=== PATIENT | male | born 1940 | race African-American/Black ===

== ENCOUNTER 2021-02-12 08:27 | Emergency (ER) | payer OTHER, MEDICAID ==
[~2021-02-12] VITALS: Ht 180.3 cm; Wt 87.0 kg
[2021-02-12 08:35] VITALS: BP 172/78
--- NOTE | 2021-02-12 08:56 | PHYS DOC ---
Past Medical History Past Medical History htn Past Surgical History: No Surgical History Alcohol Use: None Drug Use: None General Adult EDM: Chief Complaint: LACERATION/AVULSION HPI: HPI: This is a pleasant 80-year-old male who presents emergency department today with a left middle finger/third phalanx injury which occurred at 1:00 PM yesterday on 02-11-2021 when he was mowing the lawn. he reports he fell and his finger got caught by the blade. He put gauze over it and was able to maintain hemostasis with pressure bandaged it. He presents today on 02-12-2021 at around 8:30 AM. Currently he has no pain. When he injured it his pain was throbbing aching nonradiating mild and without alleviating factors. He denies any other injuries or symptoms. Tetanus is not up-to-date. Review of systems negative for chest pain shortness of breath vomiting fevers chills or injury to any other extremities. He denies head injury loss of consciousness or syncope. All other review of systems negative ED course: 80-year-old male presents emergency department today after a finger laceration and a lawnmower accident. X-ray unremarkable. Tetanus updated. Wound is concerning for high risk for infection. Wound is about 18 hours old. I do not feel comfortable reapproximating this wound given the risk of infection. We washed the wound out with 200 cc of saline under pressure along with soaking it and then using Betadine to clean the wound. We placed nonadherent dressing overlying the wound and bandaged the wound. I gave the patient oral doxycycline to try to prevent infection. I also refer the patient to plastic surgery for consultation on whether they would be able to reapproximate the wound within the next 24 to 48 hours. The patient was then discharged home to follow-up with plastic surgery over the next day or 2. If unable to get into specialty consultation he is supposed to return to the emergency department for further treatment and care. Preferably an the emergency department that has plastic surgery on-call. Heart Score: C/O Chest Pain: No Risk Factors: Risk Factors: DM, Current or recent (<one month) smoker, HTN, HLP, family history of CAD, obesity. Risk Scores: Score 0 - 3: 2.5% MACE over next 6 weeks - Discharge Home Score 4 - 6: 20.3% MACE over next 6 weeks - Admit for Clinical Observation Score 7 - 10: 72.7% MACE over next 6 weeks - Early Invasive Strategies Allergies: Allergies: Allergies Coded Allergies Type Severity Reaction Last Updated Verified Penicillins Allergy Unknown 02/12/21 Yes Physical Exam: PE: Constitutional: Well developed, well nourished, no acute distress, non-toxic appearance. [] HENT: Normocephalic, atraumatic, bilateral external ears normal, oropharynx moist, no oral exudates, nose normal. [] Eyes: PERRLA, EOMI, conjunctiva normal, no discharge. [] Neck: Normal range of motion, no tenderness, supple, no stridor. [] Cardiovascular:Heart rate regular rhythm, no murmur [] Lungs & Thorax: Bilateral breath sounds clear to auscultation [] Abdomen: Bowel sounds normal, soft, no tenderness, no masses, no pulsatile masses. [] Skin: Warm, dry, no erythema, no rash. [] Back: No tenderness, no CVA tenderness. [] Extremities: The patient's left hand has a laceration to the tip of the third phalanx/middle finger which has contaminated debris throughout. There are no large obvious foreign bodies visible. Neurovascularly intact with 2-second cap refill. Normal range of motion of the joint proximally in the DIP and PIP. Normal extension and flexion of the finger. The remainder the hand is nontender without any evidence of trauma. Palpable pulse. Nontender wrist and elbow proximally. The remainder the extremities are nontender with normal range of motion of the joints neurovascular intact and atraumatic. Neurologic: Alert and oriented X 3, normal motor function, normal sensory function, no focal deficits noted. [] Psychologic: Affect normal, judgement normal, mood normal. [] EKG: EKG: [] Radiology/Procedures: Radiology/Procedures: [] Course & Med Decision Making: Course & Med Decision Making Pertinent Labs and Imaging studies reviewed. (See chart for details) [] Dragon Disclaimer: Dragon Disclaimer: This electronic medical record was generated, in whole or in part, using a voice recognition dictation system. Departure Departure Impression: Primary Impression: Finger laceration Disposition: 01 HOME / SELF CARE / HOMELESS Condition: STABLE Referrals: SHABBIR WEBSTER MD (PCP) Patient Instructions: Laceration, Old, Not Sutured Additional Instructions: Because your wound is at high risk of infection, I am referring you to a hand specialist. Follow up is extremely important and lack of follow up could lead to loss of hand, disability, and/or . Follow up with Hand surgery by making an appointment by calling [phone]. You need to be seen within 24-48 hours. If you cannot get in, return to a local emergency room for reevaluation and further guidance. Scripts Doxycycline Hyclate (DOXYCYCLINE HYCLATE) 100 Mg Capsule 1 CAP PO BID for 10 Days, #20 CAP 0 Refills Prov: MARJAN SETHI MD 02/12/21 MARJAN SETHI MD February 12, 2021 08:56
[2021-02-12] MEDS ORDERED: DIPH,PERTUSS(ACELL),TET VAC/PF 0.5 ML SYRINGE. VAX IM ONE (09:00)
[2021-02-12] MEDS ORDERED: DOXY100C2 PO (09:01)
[2021-02-12] MEDS ORDERED: DOXYCYCLINE HYCLATE 100 MG TABLET PO ONE (09:15)
--- NOTE | 2021-02-12 09:39 | RAD ---
Left third finger 3 views. HISTORY: Finger injury, trauma 3 views were taken the left third finger. There is soft tissue injury at the tip of the third finger. There is no underlying fracture or osseous abnormality. No other acute osseous abnormality is noted in the left hand. IMPRESSION: 1. Soft tissue injury distal left third finger. 2. No acute fracture. Electronically signed by: Bernardo Appiah MD (02/12/2021 9:36 AM) [id number]
== END 2021-02-12 10:45 | disposition home or self-care (01) ==
LOC: ER 08:27
DX: S61.213A Laceration without foreign body of left middle finger without damage to nail, initial encounter (principal); I10 Essential (primary) hypertension; Z88.0 Allergy status to penicillin; W18.09XA Striking against other object with subsequent fall, initial encounter; Y93.89 Activity, other specified; Y92.89 Other specified places as the place of occurrence of the external cause; Y99.8 Other external cause status
CPT/HCPCS: 73140; 90471; 90715; 99283

== ENCOUNTER 2021-12-18 12:32 | Inpatient (IN) | payer OTHER, MEDICAID ==
[~2021-12-18] VITALS: Ht 182.9 cm; Wt 68.1 kg
[~2021-12-18 12:32] MED LIST: DOXY100C3 PO
--- NOTE | 2021-12-18 12:48 | PHYS DOC ---
Past Medical History Past Medical History: Diabetes-Type II, High Cholesterol, Hip Dislocation, [place] Past Surgical History: No Surgical History Additional Past Surgical Histo: CARDIAC STENTS Smoking Status: Never Smoker Alcohol Use: None Drug Use: None General Adult EDM: Chief Complaint: SEIZURE HPI: HPI: Patient is a 81 year old male brought in by EMS after he was found walking on a sidewalk somewhere, demonstrating seizure-like activity, a bystander called 911. He does not know if he was helped to the ground or if he fell and hit his head. The patient is confused on arrival, appears to be postictal. EMS does not report that they saw any seizure-like activity. The patient is unable to provide any meaningful history. He knows his name, he knows he is in the hospital, and he repeatedly states his date of when asked other questions. He cannot tell us where he lives. He does not have any identifying information on him that would tell us where he lives. He is wearing some sort of badge with a lanyard around his neck, though this is an unmarked badge. There were no accompanying people with him when he was found by the bystander who called 911. The patient denies any specific complaints of pain. Review of systems is limited secondary to postictal state, mental status. His previous records indicate that he was here in 2020 for a laceration. It is not known if he has a history of seizures or not. Review of Systems: Review of Systems: Review of systems is significantly limited secondary to clinical condition, see HPI. Heart Score: C/O Chest Pain: N/A Risk Factors: Risk Factors: DM, Current or recent (<one month) smoker, HTN, HLP, family history of CAD, obesity. Risk Scores: Score 0 - 3: 2.5% MACE over next 6 weeks - Discharge Home Score 4 - 6: 20.3% MACE over next 6 weeks - Admit for Clinical Observation Score 7 - 10: 72.7% MACE over next 6 weeks - Early Invasive Strategies Allergies: Allergies: Allergies Coded Allergies Type Severity Reaction Last Updated Verified Penicillins Allergy Unknown 02/12/21 Yes Physical Exam: PE: Constitutional: Well developed, no acute distress, non-toxic appearance. He is relatively frail appearing, moderately unkempt. Not acutely ill-appearing. HENT: Normocephalic, atraumatic, bilateral external ears normal, oropharynx moist, no oral exudates, nose normal. TMs are clear bilaterally. No facial trauma noted. No otorrhea, no epistaxis, no rhinorrhea. No dental trauma noted. Eyes: PERRL, EOMI, conjunctiva normal, no discharge. No periorbital edema, erythema or contusion. Neck: Normal range of motion, no tenderness, supple, no stridor. No midline tenderness or step-offs. Cardiovascular:Heart rate regular rhythm, 2 radial and +2 posterior tibial pulses bilaterally Lungs & Thorax: Lungs are clear to auscultation bilaterally without rales, rhonchi or wheezes. Abdomen: Abdomen is soft, nondistended, nontender to palpation. No palpable mass organomegaly. Skin: Warm, dry, no erythema, no rash. Tickly poor skin turgor. No open wounds, no contusions, no areas of swelling, warmth, no lacerations or abrasions. Back: No tenderness, no CVA tenderness. Somewhat limited range of motion. No midline tenderness or step-offs. No deformity. Extremities: No tenderness, no cyanosis, no clubbing, ROM intact, no edema. Pelvis is stable. No limb deformity. No calf tenderness. Neurologic: The patient is somewhat sleepy, though awake, he is oriented to person, "hospital" and knows his date of . He does not know the date, situation or circumstances surrounding why he is here or what occurred prior to arrival. He follows commands. Cranial nerves II through XII are grossly intact. Sensation is grossly intact. He demonstrates 5 out of 5 motor strength all 4 extremities. Speech is limited but what content there is, is fluent. Psychologic: Affect is pleasant, cooperative EKG: EKG: EKG is interpreted at 1253 Rhythm is sinus tachycardia Rate is 112 bpm [place] is left artifact No obvious STEMI Radiology/Procedures: Radiology/Procedures: IMAGING REPORT Signed PATIENT: FAREED MALONE ACCOUNT: [id number] : 1940 LOCATION: ER AGE: 81 SEX: M EXAM STATUS: REG ER ORD. PHYSICIAN: FOX BRAMBILA DO REASON: AMS, ?seizure PROCEDURE: CT HEAD WO CONTRAST Exam Date: 12/18/2021 1:[address] HEAD/BRAIN WO Indication: Reason: AMS, ?seizure / Spl. Instructions: / History: . TECHNIQUE: Head CT was performed without intravenous contrast. One or more of the following dose reduction techniques were utilized: *Automated exposure control (AEC) *Adjustment of mA and/or kV according to patient size *Use of iterative reconstruction technique *CT scan done according to ALARA, or ALARA/IMAGE GENTLY FINDINGS: The ventricles and sulci are prominent consistent with cerebral volume loss. Patchy ill-defined low attenuation areas in the subcortical and periventricular white matter bilaterally are consistent with microvascular disease. There is no evidence of acute intracranial hemorrhage, extra-axial collection, mass effect, midline shift, or acute territorial infarct. No lesion of the skull base or the calvarium is seen. The visualized paranasal sinuses, mastoid air cells and orbits are normal in appearance. IMPRESSION: No evidence for acute intracranial abnormality. Volume loss and microvascular disease. Electronically signed by: Becky Riggs MD (12/18/2021 2:08 PM) [id number] DICTATED and SIGNED BY: BECKY RIGGS MD DATE: 12/18/211406 IMAGING REPORT Signed PATIENT: FAREED MALONE ACCOUNT: [id number] : 1940 LOCATION: ER AGE: 81 SEX: M EXAM STATUS: REG ER ORD. PHYSICIAN: FOX BRAMBILA DO REASON: AMS PROCEDURE: PORTABLE CHEST 1V XR CHEST 1V INDICATION: AMS / Spl. Instructions: / History: . COMPARISON STUDY: None. FINDINGS: Lungs: Normal lung volume. Mild bilateral ill-defined opacities. Pleura: No pleural effusion or pneumothorax. Heart and Mediastinum: The cardiomediastinal silhouette is normal. The tortuous atherosclerotic aorta. IMPRESSION: Mild bilateral ill-defined opacities, which could represent infection or edema. Electronically signed by: Em Gibson MD (12/18/2021 2:14 PM) [id number] DICTATED and SIGNED BY: EM GIBSON MD DATE: 12/18/211406 Course & Med Decision Making: Course & Med Decision Making Pertinent Labs and Imaging studies reviewed. (See chart for details) The patient had a witnessed tonic-clonic, generalized seizure. The seizure lasted approximately 1 minute. He was given IV Ativan. He did sustain an expected postictal state. He was placed on supplemental oxygen. No desaturation was ever noted. He did start to awaken again after period of time, he is still pleasantly confused. He is sleepy but awakens, still unable to give us any more information about where he lives, what occurred prior to arrival, he is unable to articulate if he has any history of seizures. He is given a dose of IV Keppra. Lactate is markedly elevated, likely secondary to seizure activity. He is given empiric IV Zosyn for subtle chest x-ray findings, concern for possible aspiration during seizure activity. He has marked hyperglycemia, it is unknown if he is a known diabetic or not. I ordered 10 units of insulin. Further IV fluid bolus is also ordered. Blood cultures are ordered. Also it is unknown what his baseline renal function is, his creatinine is elevated. He is hemodynamically stable, resting comfortably, without complaint. He is going to require admission to the hospital. He is accepted for admission by Dr. Trejo. Augustus Disclaimer: Augustus Disclaimer: This electronic medical record was generated, in whole or in part, using a voice recognition dictation system. Departure Departure Impression: Primary Impression: Altered mental status Qualified Codes: R41.82 - Altered mental status, unspecified Additional Impressions: Seizure Lactic acidosis Renal failure Qualified Codes: N19 - Unspecified kidney failure Hyperglycemia Disposition: ADMITTED INPATIENT Admitting Physician: TAMELA (Dr. Trejo) Condition: GUARDED Referrals: SHABBIR WEBSTER MD (PCP) FOX BRAMBILA DO Dec 18, 2021 12:48
[2021-12-18 13:10] LABS: BASO # 0.1 x10^3/uL (0.0-0.2); BASO % 1 % (0-3); EOS % 0 % (0-3); HEMATOCRIT 38.2 % (39.0-53.0); HEMOGLOBIN 12.6 g/dL (13.0-17.5); LYMPH # 2.2 x10^3/uL (1.0-4.8); LYMPH % 36 % (24-48); MEAN CORPUSCULAR HEMOGLOBIN 30 pg (25-35); MEAN CORPUSCULAR HGB CONC 33 g/dL (31-37); MEAN CORPUSCULAR VOLUME 91 fL (79-100); MONO # 0.6 x10^3/uL (0.0-1.1); MONO % 11 % (0-9); NEUT # 3.1 x10^3/uL (1.8-7.7); NEUT % 52 % (31-73); PLATELET COUNT 140 x10^3/uL (140-400); RED BLOOD COUNT 4.19 x10^6/uL (4.30-5.70); RED CELL DISTRIBUTION WIDTH 12.3 % (11.5-14.5); WHITE BLOOD COUNT 5.9 x10^3/uL (4.0-11.0)
[2021-12-18 13:19] LABS: PROTHROMBIN TIME PATIENT 12.1 SEC (11.7-14.0)
[2021-12-18 13:28] LABS: CALCIUM 8.6 mg/dL (8.5-10.1); CREATININE 3.2 mg/dL (0.7-1.3); GFR 22.7; POTASSIUM 4.9 mmol/L (3.5-5.1)
[2021-12-18 13:31] LABS: ALBUMIN 3.1 g/dL (3.4-5.0); ALBUMIN/GLOBULIN RATIO 0.8 (1.0-1.7); MAGNESIUM 2.2 mg/dL (1.8-2.4); TOTAL BILIRUBIN 0.4 mg/dL (0.2-1.0); TOTAL PROTEIN 7.2 g/dL (6.4-8.2)
[2021-12-18] MEDS ORDERED: IV NORMAL SALINE 1000ML BAG 1,000 ML IV ONE ×2 (14:00→14:45)
--- NOTE | 2021-12-18 14:10 | RAD ---
Exam Date: 12/18/2021 1:[address] HEAD/BRAIN WO Indication: Reason: AMS, ?seizure / Spl. Instructions: / History: . TECHNIQUE: Head CT was performed without intravenous contrast. One or more of the following dose re duction techniques were utilized: *Automated exposure control (AEC) *Adjustment of mA and/or kV according to patient size *Use of iterative reconstruction technique *CT scan done according to ALARA, or ALARA/IMAGE GENTLY FINDINGS: The ventricles and sulci are prominent consistent with cerebral volume loss. Patchy ill-defined low attenuation areas in the subcortical and periventricular white matter bilaterally are consistent with microvascular disease. There is no evidence of acute intracranial hemorrhage, extra-axial collecti on, mass effect, midline shift, or acute territorial infarct. No lesion of the skull base or the calv arium is seen. The visualized paranasal sinuses, mastoid air cells and orbits are normal in appearanc e. IMPRESSION: No evidence for acute intracranial abnormality. Volume loss and microvascular disease. Electronically signed by: Jake Riggs MD (12/18/2021 2:08 PM) [id number]
--- NOTE | 2021-12-18 14:17 | RAD ---
XR CHEST 1V INDICATION: AMS / Spl. Instructions: / History: . COMPARISON STUDY: None. FINDINGS: Lungs: Normal lung volume. Mild bilateral ill-defined opacities. Pleura: No pleural effusion or pneumothorax. Heart and Mediastinum: The cardiomediastinal silhouette is normal. The tortuous atherosclerotic aorta . IMPRESSION: Mild bilateral ill-defined opacities, which could represent infection or edema. Electronically signed by: Dre Gibson MD (12/18/2021 2:14 PM) [id number]
[2021-12-18] MEDS ORDERED: levETIRAcetam 1,000mg PREMIX 100 ML IV ONE (15:00)
[2021-12-18] MEDS ORDERED: CEFEPIME HCL IV Push 2 GM VIAL. IVP ONE (15:15)
[2021-12-18] MEDS ORDERED: INSULIN LISPRO 300 UNITS/3 ML VIAL. SQ ONE (15:15)
[2021-12-18] MEDS ORDERED: hydrALAZINE 20 MG/ML VIAL. IVP PRN (15:45)
[2021-12-18 17:20] VITALS: BP 166/78
--- NOTE | 2021-12-18 17:22 | PDOC1 ---
History and Physical Date of Admission Date of Admission DATE: 12/18/21 TIME: 17:11 Identification/Chief Complaint Chief Complaint Seizure Source Source: Chart review History of Present Illness History of Present Illness Jules is a 81 male who reportedly had a seizure-like activity outside of the hospital, which is what brought him to the ER today. While in the ER he did have witnessed seizure activity, treated with IV Ativan. At current time patient is very postictal, and little is known of his past medical history as he had an inpatient stay at this hospital prior labs admission showed WBC 5.9, hemoglobin 12.6, hematocrit 38.2, glucose 835, lactic acid 7.3, BUN 43, creatinine 3.2. CT head on admission was negative for any acute process, chest x-ray showed mild bilateral ill-defined opacities, which could represent infection or edema. Patient's been admitted for further medical management. Past Medical History Past Medical History Unknown at this time Past Surgical History Past Surgical History Unknown Family History Family History Unable to obtain patient's current condition Social History Smoke: No ALCOHOL: none Drugs: None Current Medications Current Medications Current Medications Lorazepam (Ativan Inj) 2 mg STK-MED ONCE .ROUTE ; Start 12/18/21 at 13:45; Stop 12/18/21 at 13:45; Status DC Sodium Chloride 1,000 ml @ 1,000 mls/hr 1X ONCE IV Last administered on 12/18/21at 14:00; Start 12/18/21 at 14:00; Stop 12/18/21 at 14:59; Status DC Lorazepam (Ativan Inj) 1 mg 1X ONCE IVP Last administered on 12/18/21at 13:46; Start 12/18/21 at 14:15; Stop 12/18/21 at 14:16; Status DC Sodium Chloride 1,000 ml @ 1,000 mls/hr 1X ONCE IV Last administered on 12/18/21at 14:34; Start 12/18/21 at 14:45; Stop 12/18/21 at 15:44; Status DC Levetiracetam 100 ml @ 400 mls/hr 1X ONCE IV Last administered on 12/18/21at 15:29; Start 12/18/21 at 15:00; Stop 12/18/21 at 15:14; Status DC Insulin Human Lispro (HumaLOG) 10 units 1X ONCE SQ ; Start 12/18/21 at 15:15; Stop 12/18/21 at 16:13; Status DC Cefepime HCl (Maxipime) 2 gm 1X ONCE IVP Last administered on 12/18/21at 16:10; Start 12/18/21 at 15:15; Stop 12/18/21 at 15:21; Status DC Hydralazine HCl (Apresoline Inj) 10 mg PRN Q4HRS PRN IVP HYPERTENSION; Start 12/18/21 at 15:45 Active Scripts Active Doxycycline Hyclate 100 Mg Capsule 1 Cap PO BID 10 Days Allergies Allergies: Coded Allergies: Penicillins (Verified Allergy, Unknown, 02/12/21) ROS Review of System Unable to obtain due to current clinical status Physical Exam Physical Exam General: Confused. No acute distress HEENT: PERRLA, EOMI Lungs: Bibasilar crackles, Normal air movement Heart: RRR, no murmurs Cardiovascular: S1, S2 Abdomen: Normal bowel sounds, Soft, No tenderness Extremities: No clubbing, No cyanosis Skin: No rashes, No significant lesion Neuro: Postictal. Sensation intact Psych/Mental Status: Patient is very confused and not oriented Vitals Vitals Vital Signs Date Time Temp Pulse Resp B/P (MAP) Pulse Ox O2 Delivery O2 Flow Rate FiO2 12/18/21 16:16 78 151/75 (100) Nasal Cannula 2.0 12/18/21 15:16 95 12/18/21 12:32 20 Labs Labs Laboratory Tests Test 12/18/21 12:50 White Blood Count 5.9 x10^3/uL (4.0-11.0) Red Blood Count 4.19 x10^6/uL (4.30-5.70) Hemoglobin 12.6 g/dL (13.0-17.5) Hematocrit 38.2 % (39.0-53.0) Mean Corpuscular Volume 91 fL (79-100) Mean Corpuscular Hemoglobin 30 pg (25-35) Mean Corpuscular Hemoglobin Concent 33 g/dL (31-37) Red Cell Distribution Width 12.3 % (11.5-14.5) Platelet Count 140 x10^3/uL (140-400) Neutrophils (%) (Auto) 52 % (31-73) Lymphocytes (%) (Auto) 36 % (24-48) Monocytes (%) (Auto) 11 % (0-9) Eosinophils (%) (Auto) 0 % (0-3) Basophils (%) (Auto) 1 % (0-3) Neutrophils # (Auto) 3.1 x10^3/uL (1.8-7.7) Lymphocytes # (Auto) 2.2 x10^3/uL (1.0-4.8) Monocytes # (Auto) 0.6 x10^3/uL (0.0-1.1) Eosinophils # (Auto) 0.0 x10^3/uL (0.0-0.7) Basophils # (Auto) 0.1 x10^3/uL (0.0-0.2) Prothrombin Time 12.1 SEC (11.7-14.0) Prothromb Time International Ratio 0.9 (0.8-1.1) Sodium Level 132 mmol/L (136-145) Potassium Level 4.9 mmol/L (3.5-5.1) Chloride Level 92 mmol/L (98-107) Carbon Dioxide Level 24 mmol/L (21-32) Anion Gap 16 (6-14) Blood Urea Nitrogen 43 mg/dL (8-26) Creatinine 3.2 mg/dL (0.7-1.3) Estimated GFR (Cockcroft-Gault) 22.7 BUN/Creatinine Ratio 13 (6-20) Glucose Level 835 mg/dL (70-99) Lactic Acid Level 7.3 mmol/L (0.4-2.0) Calcium Level 8.6 mg/dL (8.5-10.1) Phosphorus Level 5.0 mg/dL (2.6-4.7) Magnesium Level 2.2 mg/dL (1.8-2.4) Total Bilirubin 0.4 mg/dL (0.2-1.0) Aspartate Amino Transf (AST/SGOT) 40 U/L (15-37) Alanine Aminotransferase (ALT/SGPT) 37 U/L (16-63) Alkaline Phosphatase 199 U/L (46-116) Ammonia 13 mcmol/L (11-34) Creatine Kinase 209 U/L (39-308) Troponin I High Sensitivity 50 ng/L (4-75) Total Protein 7.2 g/dL (6.4-8.2) Albumin 3.1 g/dL (3.4-5.0) Albumin/Globulin Ratio 0.8 (1.0-1.7) Ethyl Alcohol Level < 10 mg/dL (0-10) Laboratory Tests Test 12/18/21 12:50 White Blood Count 5.9 x10^3/uL (4.0-11.0) Red Blood Count 4.19 x10^6/uL (4.30-5.70) Hemoglobin 12.6 g/dL (13.0-17.5) Hematocrit 38.2 % (39.0-53.0) Mean Corpuscular Volume 91 fL (79-100) Mean Corpuscular Hemoglobin 30 pg (25-35) Mean Corpuscular Hemoglobin Concent 33 g/dL (31-37) Red Cell Distribution Width 12.3 % (11.5-14.5) Platelet Count 140 x10^3/uL (140-400) Neutrophils (%) (Auto) 52 % (31-73) Lymphocytes (%) (Auto) 36 % (24-48) Monocytes (%) (Auto) 11 % (0-9) Eosinophils (%) (Auto) 0 % (0-3) Basophils (%) (Auto) 1 % (0-3) Neutrophils # (Auto) 3.1 x10^3/uL (1.8-7.7) Lymphocytes # (Auto) 2.2 x10^3/uL (1.0-4.8) Monocytes # (Auto) 0.6 x10^3/uL (0.0-1.1) Eosinophils # (Auto) 0.0 x10^3/uL (0.0-0.7) Basophils # (Auto) 0.1 x10^3/uL (0.0-0.2) Prothrombin Time 12.1 SEC (11.7-14.0) Prothromb Time International Ratio 0.9 (0.8-1.1) Sodium Level 132 mmol/L (136-145) Potassium Level 4.9 mmol/L (3.5-5.1) Chloride Level 92 mmol/L (98-107) Carbon Dioxide Level 24 mmol/L (21-32) Anion Gap 16 (6-14) Blood Urea Nitrogen 43 mg/dL (8-26) Creatinine 3.2 mg/dL (0.7-1.3) Estimated GFR (Cockcroft-Gault) 22.7 BUN/Creatinine Ratio 13 (6-20) Glucose Level 835 mg/dL (70-99) Lactic Acid Level 7.3 mmol/L (0.4-2.0) Calcium Level 8.6 mg/dL (8.5-10.1) Phosphorus Level 5.0 mg/dL (2.6-4.7) Magnesium Level 2.2 mg/dL (1.8-2.4) Total Bilirubin 0.4 mg/dL (0.2-1.0) Aspartate Amino Transf (AST/SGOT) 40 U/L (15-37) Alanine Aminotransferase (ALT/SGPT) 37 U/L (16-63) Alkaline Phosphatase 199 U/L (46-116) Ammonia 13 mcmol/L (11-34) Creatine Kinase 209 U/L (39-308) Troponin I High Sensitivity 50 ng/L (4-75) Total Protein 7.2 g/dL (6.4-8.2) Albumin 3.1 g/dL (3.4-5.0) Albumin/Globulin Ratio 0.8 (1.0-1.7) Ethyl Alcohol Level < 10 mg/dL (0-10) Images Images PATIENT: FAREED MALONE ACCOUNT: [id number] : 1940 LOCATION: ER AGE: 81 SEX: M EXAM STATUS: REG ER ORD. PHYSICIAN: FOX BRAMBILA DO REASON: AMS, ?seizure PROCEDURE: CT HEAD WO CONTRAST Exam Date: 12/18/2021 1:[address] HEAD/BRAIN WO Indication: Reason: AMS, ?seizure / Spl. Instructions: / History: . TECHNIQUE: Head CT was performed without intravenous contrast. One or more of the following dose reduction techniques were utilized: *Automated exposure control (AEC) *Adjustment of mA and/or kV according to patient size *Use of iterative reconstruction technique *CT scan done according to ALARA, or ALARA/IMAGE GENTLY FINDINGS: The ventricles and sulci are prominent consistent with cerebral volume loss. Patchy ill-defined low attenuation areas in the subcortical and periventricular white matter bilaterally are consistent with microvascular disease. There is no evidence of acute intracranial hemorrhage, extra-axial collection, mass effect, midline shift, or acute territorial infarct. No lesion of the skull base or the calvarium is seen. The visualized paranasal sinuses, mastoid air cells and orbits are normal in appearance. IMPRESSION: No evidence for acute intracranial abnormality. Volume loss and microvascular disease. Electronically signed by: Becky Riggs MD (12/18/2021 2:08 PM) [id number] DICTATED and SIGNED BY: BECKY RIGGS MD DATE: 12/18/211406 IMAGING REPORT Signed PATIENT: FAREED MALONE ACCOUNT: [id number] : 1940 LOCATION: ER AGE: 81 SEX: M EXAM STATUS: REG ER ORD. PHYSICIAN: FOX BRAMBILA DO REASON: AMS PROCEDURE: PORTABLE CHEST 1V XR CHEST 1V INDICATION: AMS / Spl. Instructions: / History: . COMPARISON STUDY: None. FINDINGS: Lungs: Normal lung volume. Mild bilateral ill-defined opacities. Pleura: No pleural effusion or pneumothorax. Heart and Mediastinum: The cardiomediastinal silhouette is normal. The tortuous atherosclerotic aorta. IMPRESSION: Mild bilateral ill-defined opacities, which could represent infection or edema. VTE Prophylaxis Ordered VTE Prophylaxis Devices: No VTE Pharmacological Prophylaxi: Yes Assessment/Plan Assessment/Plan Sepsis Seizure Likely aspiration pneumonia Hyperglycemia BOBBI Hypertensive urgency Plan: No prior known baseline Continue cefepime for possible aspiration pneumonitis IV fluids Consult nephrology and neurology Echocardiogram pending IV lorazepam as needed IV hydralazine as needed Critical care time 33 minutes spent reviewing charts, reviewing labs, reviewing imaging, and discussion with ER attending and RN Justifications for Admission Other Justification EVA PANG MD Dec 18, 2021 17:22
[2021-12-18] MEDS ORDERED: MAGNESIUM HYDROXIDE 2,400 MG/30 ML ORAL.SUSP. PO PRN (17:30)
[2021-12-18] MEDS ORDERED: MORPHINE SULFATE 2 MG/ML INJ. IV PRN (17:30)
[2021-12-18] MEDS ORDERED: CALCIUM CARBONATE 500 MG TAB.CHEW PO PRN (17:30)
[2021-12-18] MEDS ORDERED: MAG HYDROX/ALUMINUM HYD/SIMETH 30 ML ORAL.SUSP PO PRN (17:30)
[2021-12-18] MEDS ORDERED: ONDANSETRON PF 4 MG/2 ML VIAL. IVP PRN (17:30)
[2021-12-18] MEDS ORDERED: ACETAMINOPHEN 325 MG TABLET. PO PRN (17:30)
[2021-12-18] MEDS ORDERED: IV DEXTROSE 5% 250 ML BAG. IV PRN (17:45)
[2021-12-18] MEDS ORDERED: DEXTROSE 50% 25 GM / 50ML DISP.SYRIN. IV PRN (17:45)
[2021-12-18] MEDS: IV NORMAL SALINE 1000ML BAG 1,000 ML IV SCH (18:55)
[2021-12-18 19:00] VITALS: BP 117/93
--- NOTE | 2021-12-18 19:45 | NUR ---
This RN did as much as the admission and medical history that patient could provide. No family contact was given by patient. Patient did not know any home medications or pharmacy.
[2021-12-18] MEDS: INSULIN GLARGINE SYRINGE. SQ SCH (21:08)
[2021-12-18] MEDS: HEPARIN for SUB-Q USE 5,000 UNIT/ML VIAL. SQ SCH (21:09)
[2021-12-18 23:00] VITALS: BP 163/76
[2021-12-19 03:05] VITALS: BP 140/77
[2021-12-19] MEDS: IV NORMAL SALINE 1000ML BAG 1,000 ML IV SCH ×3 (04:34→14:54)
[2021-12-19 07:00] VITALS: BP 173/113
[2021-12-19] MEDS: INSULIN LISPRO 300 UNITS/3 ML VIAL. SQ SCH ×3 (09:02→17:52)
[2021-12-19] MEDS: HEPARIN for SUB-Q USE 5,000 UNIT/ML VIAL. SQ SCH ×2 (09:03→21:43)
[2021-12-19 10:57] LABS: CALCIUM 8.5 mg/dL (8.5-10.1); CREATININE 1.9 mg/dL (0.7-1.3); GFR 41.5; POTASSIUM 3.7 mmol/L (3.5-5.1)
[2021-12-19 10:59] LABS: BASO # 0.1 x10^3/uL (0.0-0.2); BASO % 1 % (0-3); EOS % 0 % (0-3); HEMATOCRIT 37.1 % (39.0-53.0); HEMOGLOBIN 12.1 g/dL (13.0-17.5); LYMPH # 2.2 x10^3/uL (1.0-4.8); LYMPH % 51 % (24-48); MEAN CORPUSCULAR HEMOGLOBIN 29 pg (25-35); MEAN CORPUSCULAR HGB CONC 33 g/dL (31-37); MEAN CORPUSCULAR VOLUME 89 fL (79-100); MONO # 0.5 x10^3/uL (0.0-1.1); MONO % 12 % (0-9); NEUT # 1.5 x10^3/uL (1.8-7.7); NEUT % 36 % (31-73); PLATELET COUNT 100 x10^3/uL (140-400); RED BLOOD COUNT 4.15 x10^6/uL (4.30-5.70); RED CELL DISTRIBUTION WIDTH 11.8 % (11.5-14.5); WHITE BLOOD COUNT 4.3 x10^3/uL (4.0-11.0)
[2021-12-19 11:00] VITALS: BP 143/79
--- NOTE | 2021-12-19 12:15 | PDOC2 ---
NEUROLOGY CONSULT Date of Service DOS: DATE: 12/19/21 TIME: 12:09 History of Present Illness History of Present Illness The patient is a an 81-year-old right-handed male who apparently got out of the van he was driving, was walking on the sidewalk and a bystander witnessed seizure and called 911. Patient was confused in the emergency department. He had a second seizure in the emergency department and was given lorazepam. He has been found to have lactic acidosis, evidence of sepsis, possible aspiration pneumonia, hyperglycemia, acute kidney injury, and hypertensive urgency. He denies any prior history of stroke or head injury, but says he did have a seizure at a dentist office years ago. Past Medical History Cardiovascular: CAD, HTN, Hyperlipidemia Musculoskeletal: Other (Hip dislocation) Endocrine: Diabetes Past Surgical History Past Surgical History: Other (Coronary stents, right knee) Family History Family History: No pertinent hx (Negative for seizures) Current Medications Current Medications Current Medications Lorazepam (Ativan Inj) 2 mg STK-MED ONCE .ROUTE ; Start 12/18/21 at 13:45; Stop 12/18/21 at 13:45; Status DC Sodium Chloride 1,000 ml @ 1,000 mls/hr 1X ONCE IV Last administered on 12/18/21at 14:00; Start 12/18/21 at 14:00; Stop 12/18/21 at 14:59; Status DC Lorazepam (Ativan Inj) 1 mg 1X ONCE IVP Last administered on 12/18/21at 13:46; Start 12/18/21 at 14:15; Stop 12/18/21 at 14:16; Status DC Sodium Chloride 1,000 ml @ 1,000 mls/hr 1X ONCE IV Last administered on 12/18/21at 14:34; Start 12/18/21 at 14:45; Stop 12/18/21 at 15:44; Status DC Levetiracetam 100 ml @ 400 mls/hr 1X ONCE IV Last administered on 12/18/21at 15:29; Start 12/18/21 at 15:00; Stop 12/18/21 at 15:14; Status DC Insulin Human Lispro (HumaLOG) 10 units 1X ONCE SQ ; Start 12/18/21 at 15:15; Stop 12/18/21 at 16:13; Status DC Cefepime HCl (Maxipime) 2 gm 1X ONCE IVP Last administered on 12/18/21at 16:10; Start 12/18/21 at 15:15; Stop 12/18/21 at 15:21; Status DC Hydralazine HCl (Apresoline Inj) 10 mg PRN Q4HRS PRN IVP HYPERTENSION; Start 12/18/21 at 15:45 Cefepime HCl (Maxipime) 2 gm Q24H IVP ; Start 12/19/21 at 15:00 Sodium Chloride 1,000 ml @ 100 mls/hr Q10H IV Last administered on 12/19/21at 04:34; Start 12/18/21 at 17:30 Lorazepam (Ativan Inj) 2 mg PRN Q4HRS PRN IVP SEE COMMENTS; Start 12/18/21 at 17:30 Ondansetron HCl (Zofran) 4 mg PRN Q6HRS PRN IVP NAUSEA/VOMITING; Start 12/18/21 at 17:30 Al Hydroxide/Mg Hydroxide (Mylanta Plus Xs) 30 ml PRN Q3HRS PRN PO HEARTBURN / GAS; Start 12/18/21 at 17:30 Calcium Carbonate/ Glycine (Tums) 500 mg PRN Q3HRS PRN PO UPSET STOMACH; Start 12/18/21 at 17:30 Morphine Sulfate (Morphine Sulfate) 2 mg PRN Q1HR PRN IV PAIN; Start 12/18/21 at 17:30 Acetaminophen (Tylenol) 650 mg PRN Q6HRS PRN PO Headaches, Temp > 101.5F; Start 12/18/21 at 17:30 Magnesium Hydroxide (Milk Of Magnesia) 2,400 mg PRN Q12HR PRN PO CONSTIPATION; Start 12/18/21 at 17:30 Heparin Sodium (Porcine) (Heparin Sodium) 5,000 unit Q12HR SQ Last administered on 12/19/21at 09:03; Start 12/18/21 at 21:00 Insulin Glargine (Lantus Syringe) 20 unit QHS SQ Last administered on 12/18/21at 21:08; Start 12/18/21 at 21:00 Insulin Human Lispro (HumaLOG) 0-9 UNITS TIDWMEALS SQ Last administered on 12/19/21at 09:02; Start 12/19/21 at 08:00 Dextrose (Dextrose 50%-Water Syringe) 12.5 gm PRN Q15MIN PRN IV SEE COMMENTS; Start 12/18/21 at 17:45 Dextrose (Iv Dextrose 5%) 250 ml PRN Q15MIN PRN IV SEE COMMENTS; Start 12/18/21 at 17:45 Active Scripts Active Doxycycline Hyclate 100 Mg Capsule 1 Cap PO BID 10 Days Allergies Allergies: Coded Allergies: Penicillins (Verified Allergy, Unknown, 02/12/21) ROS Review of System Negative for fever, chills, weight loss, shortness of breath, chest pain, in digestion, hematochezia, melena, and dysuria. Full 14-point review of systems is negative. Physical Exam Physical Examination General: Well-developed, well-nourished, black male in no acute distress HEENT: Normocephalic andatraumatic. Temporal arteriespulsatile and nontender. Neck: Supple without bruit, no meningismus Musculoskeletal: Stability:see neurologic. Gait exam:see neurologic. Tone:see neurologic.Strength:see neurologic. Neurological: Mental Status:orientation, memory, attention span/concentration, language, fund of knowledge: Does not know the name of the hospital or the date, names and repeats well, poor historian. He took off his pajamas. Cranial Nerves:Pupils equal and reactive to light, extraocular movements areintact, visual coppola are full to confrontation. Facial sensation is normal. There is no facial asymmetry. Vestibulo-ocular reflex is intact. Palate elevates and tongue protrudes in midline. All other cranial related problems are negative except as mentioned before.Reflexes:1+ and symmetric with flexor plantar responses. Motor:4/5 strength with normal tone and bulk. Coordination:Finger-nose finger and [id number] testing are normal. Rapid alternating movements and fine finger movements are intact. Gait:Not tested. Sensory:Stocking loss. Vitals VITALS Vital Signs Date Time Temp Pulse Resp B/P (MAP) Pulse Ox O2 Delivery O2 Flow Rate FiO2 12/19/21 11:00 98.1 78 20 143/79 (100) 97 Room Air 98.1 12/18/21 16:16 2.0 Labs Labs Laboratory Tests Test 12/18/21 12:50 12/18/21 16:05 12/19/21 10:30 12/19/21 11:32 White Blood Count 5.9 x10^3/uL (4.0-11.0) 4.3 x10^3/uL (4.0-11.0) Red Blood Count 4.19 x10^6/uL (4.30-5.70) 4.15 x10^6/uL (4.30-5.70) Hemoglobin 12.6 g/dL (13.0-17.5) 12.1 g/dL (13.0-17.5) Hematocrit 38.2 % (39.0-53.0) 37.1 % (39.0-53.0) Mean Corpuscular Volume 91 fL (79-100) 89 fL (79-100) Mean Corpuscular Hemoglobin 30 pg (25-35) 29 pg (25-35) Mean Corpuscular Hemoglobin Concent 33 g/dL (31-37) 33 g/dL (31-37) Red Cell Distribution Width 12.3 % (11.5-14.5) 11.8 % (11.5-14.5) Platelet Count 140 x10^3/uL (140-400) 100 x10^3/uL (140-400) Neutrophils (%) (Auto) 52 % (31-73) 36 % (31-73) Lymphocytes (%) (Auto) 36 % (24-48) 51 % (24-48) Monocytes (%) (Auto) 11 % (0-9) 12 % (0-9) Eosinophils (%) (Auto) 0 % (0-3) 0 % (0-3) Basophils (%) (Auto) 1 % (0-3) 1 % (0-3) Neutrophils # (Auto) 3.1 x10^3/uL (1.8-7.7) 1.5 x10^3/uL (1.8-7.7) Lymphocytes # (Auto) 2.2 x10^3/uL (1.0-4.8) 2.2 x10^3/uL (1.0-4.8) Monocytes # (Auto) 0.6 x10^3/uL (0.0-1.1) 0.5 x10^3/uL (0.0-1.1) Eosinophils # (Auto) 0.0 x10^3/uL (0.0-0.7) 0.0 x10^3/uL (0.0-0.7) Basophils # (Auto) 0.1 x10^3/uL (0.0-0.2) 0.1 x10^3/uL (0.0-0.2) Prothrombin Time 12.1 SEC (11.7-14.0) Prothromb Time International Ratio 0.9 (0.8-1.1) Sodium Level 132 mmol/L (136-145) 146 mmol/L (136-145) Potassium Level 4.9 mmol/L (3.5-5.1) 3.7 mmol/L (3.5-5.1) Chloride Level 92 mmol/L (98-107) 111 mmol/L (98-107) Carbon Dioxide Level 24 mmol/L (21-32) 26 mmol/L (21-32) Anion Gap 16 (6-14) 9 (6-14) Blood Urea Nitrogen 43 mg/dL (8-26) 27 mg/dL (8-26) Creatinine 3.2 mg/dL (0.7-1.3) 1.9 mg/dL (0.7-1.3) Estimated GFR (Cockcroft-Gault) 22.7 41.5 BUN/Creatinine Ratio 13 (6-20) Glucose Level 835 mg/dL (70-99) 178 mg/dL (70-99) Lactic Acid Level 7.3 mmol/L (0.4-2.0) 1.7 mmol/L (0.4-2.0) Calcium Level 8.6 mg/dL (8.5-10.1) 8.5 mg/dL (8.5-10.1) Phosphorus Level 5.0 mg/dL (2.6-4.7) Magnesium Level 2.2 mg/dL (1.8-2.4) Total Bilirubin 0.4 mg/dL (0.2-1.0) Aspartate Amino Transf (AST/SGOT) 40 U/L (15-37) Alanine Aminotransferase (ALT/SGPT) 37 U/L (16-63) Alkaline Phosphatase 199 U/L (46-116) Ammonia 13 mcmol/L (11-34) Creatine Kinase 209 U/L (39-308) Troponin I High Sensitivity 50 ng/L (4-75) Total Protein 7.2 g/dL (6.4-8.2) Albumin 3.1 g/dL (3.4-5.0) Albumin/Globulin Ratio 0.8 (1.0-1.7) Ethyl Alcohol Level < 10 mg/dL (0-10) Glucose (Fingerstick) 175 mg/dL (70-99) Laboratory Tests Test 12/18/21 12:50 12/18/21 16:05 12/19/21 10:30 12/19/21 11:32 White Blood Count 5.9 x10^3/uL (4.0-11.0) 4.3 x10^3/uL (4.0-11.0) Red Blood Count 4.19 x10^6/uL (4.30-5.70) 4.15 x10^6/uL (4.30-5.70) Hemoglobin 12.6 g/dL (13.0-17.5) 12.1 g/dL (13.0-17.5) Hematocrit 38.2 % (39.0-53.0) 37.1 % (39.0-53.0) Mean Corpuscular Volume 91 fL (79-100) 89 fL (79-100) Mean Corpuscular Hemoglobin 30 pg (25-35) 29 pg (25-35) Mean Corpuscular Hemoglobin Concent 33 g/dL (31-37) 33 g/dL (31-37) Red Cell Distribution Width 12.3 % (11.5-14.5) 11.8 % (11.5-14.5) Platelet Count 140 x10^3/uL (140-400) 100 x10^3/uL (140-400) Neutrophils (%) (Auto) 52 % (31-73) 36 % (31-73) Lymphocytes (%) (Auto) 36 % (24-48) 51 % (24-48) Monocytes (%) (Auto) 11 % (0-9) 12 % (0-9) Eosinophils (%) (Auto) 0 % (0-3) 0 % (0-3) Basophils (%) (Auto) 1 % (0-3) 1 % (0-3) Neutrophils # (Auto) 3.1 x10^3/uL (1.8-7.7) 1.5 x10^3/uL (1.8-7.7) Lymphocytes # (Auto) 2.2 x10^3/uL (1.0-4.8) 2.2 x10^3/uL (1.0-4.8) Monocytes # (Auto) 0.6 x10^3/uL (0.0-1.1) 0.5 x10^3/uL (0.0-1.1) Eosinophils # (Auto) 0.0 x10^3/uL (0.0-0.7) 0.0 x10^3/uL (0.0-0.7) Basophils # (Auto) 0.1 x10^3/uL (0.0-0.2) 0.1 x10^3/uL (0.0-0.2) Prothrombin Time 12.1 SEC (11.7-14.0) Prothromb Time International Ratio 0.9 (0.8-1.1) Sodium Level 132 mmol/L (136-145) 146 mmol/L (136-145) Potassium Level 4.9 mmol/L (3.5-5.1) 3.7 mmol/L (3.5-5.1) Chloride Level 92 mmol/L (98-107) 111 mmol/L (98-107) Carbon Dioxide Level 24 mmol/L (21-32) 26 mmol/L (21-32) Anion Gap 16 (6-14) 9 (6-14) Blood Urea Nitrogen 43 mg/dL (8-26) 27 mg/dL (8-26) Creatinine 3.2 mg/dL (0.7-1.3) 1.9 mg/dL (0.7-1.3) Estimated GFR (Cockcroft-Gault) 22.7 41.5 BUN/Creatinine Ratio 13 (6-20) Glucose Level 835 mg/dL (70-99) 178 mg/dL (70-99) Lactic Acid Level 7.3 mmol/L (0.4-2.0) 1.7 mmol/L (0.4-2.0) Calcium Level 8.6 mg/dL (8.5-10.1) 8.5 mg/dL (8.5-10.1) Phosphorus Level 5.0 mg/dL (2.6-4.7) Magnesium Level 2.2 mg/dL (1.8-2.4) Total Bilirubin 0.4 mg/dL (0.2-1.0) Aspartate Amino Transf (AST/SGOT) 40 U/L (15-37) Alanine Aminotransferase (ALT/SGPT) 37 U/L (16-63) Alkaline Phosphatase 199 U/L (46-116) Ammonia 13 mcmol/L (11-34) Creatine Kinase 209 U/L (39-308) Troponin I High Sensitivity 50 ng/L (4-75) Total Protein 7.2 g/dL (6.4-8.2) Albumin 3.1 g/dL (3.4-5.0) Albumin/Globulin Ratio 0.8 (1.0-1.7) Ethyl Alcohol Level < 10 mg/dL (0-10) Glucose (Fingerstick) 175 mg/dL (70-99) Images Images CT HEAD/BRAIN WO Indication: Reason: AMS, ?seizure / Spl. Instructions: / History: . TECHNIQUE: Head CT was performed without intravenous contrast. One or more of the following dose reduction techniques were utilized: *Automated exposure control (AEC) *Adjustment of mA and/or kV according to patient size *Use of iterative reconstruction technique *CT scan done according to ALARA, or ALARA/IMAGE GENTLY FINDINGS: The ventricles and sulci are prominent consistent with cerebral volume loss. Patchy ill-defined low attenuation areas in the subcortical and periventricular white matter bilaterally are consistent with microvascular disease. There is no evidence of acute intracranial hemorrhage, extra-axial collection, mass effect, midline shift, or acute territorial infarct. No lesion of the skull base or the calvarium is seen. The visualized paranasal sinuses, mastoid air cells and orbits are normal in appearance. IMPRESSION: No evidence for acute intracranial abnormality. Volume loss and microvascular disease. Assessment/Plan Assessment/Plan Impression: Seizures with multiple metabolic issues including sepsis, aspiration pneumonia, acute kidney injury, hyperglycemia. His renal parameters have already responded to hydration Possible chronic dementia or intellectual disability Evidence of diabetic neuropathy Recommendations: Hold on anticonvulsants Brain MRI and electroencephalogram on a routine basis, Tuesday, 12/21 Seizure precautions Lab work for other causes of dementia and peripheral neuropathy Treat medical issues. Thank you for letting me help with the patient's care. AMY WATTS MD Dec 19, 2021 12:15
--- NOTE | 2021-12-19 14:33 | PDOC2 ---
CONSULT Date of Consult Date of Consult DATE: 12/19/21 TIME: 14:23 Reason for Consult Reason for Consult: BOBBI Identification/Chief Complaint Chief Complaint No complaints currently Source Source: Chart review, Patient History of Present Illness Reason for Visit: Patient is a 81 AA male who reportedly had a seizure-like activity outside of the hospital, which is what brought him to the ER While in the ER he had witnessed seizure activity, treated with IV Ativan Currently More alert , mildly confused per Nursing. He knows he ias at [facility]. States feeling better . Denies CP/SOB. No F/C. No N/V/D . No urinary complaints . Denies any Kidney Problems in the past . Denies Kidney stones . No LE edema . per nursing eating and drinking water Labs on admission - WBC 5.9, hemoglobin 12.6, hematocrit 38.2, glucose 835, lactic acid 7.3, BUN 43, creatinine 3.2. CT head on admission was negative for any acute process, chest x-ray showed mild bilateral ill-defined opacities, which could represent infection or edema. Patient's been admitted for further medical management. Past Medical History Cardiovascular: CAD, HTN, Hyperlipidemia Musculoskeletal: Other (Hip dislocation) Endocrine: Diabetes Past Surgical History Past Surgical History: Other (Coronary stents, right knee) Family History Family History Non Contributory Social History No ALCOHOL: none Drugs: None Current Problem List Problem List Problems Medical Problems: (1) Altered mental status Status: Acute (2) Hyperglycemia Status: Acute (3) Lactic acidosis Status: Acute (4) Renal failure Status: Acute Current Medications Current Medications Current Medications Lorazepam (Ativan Inj) 2 mg STK-MED ONCE .ROUTE ; Start 12/18/21 at 13:45; Stop 12/18/21 at 13:45; Status DC Sodium Chloride 1,000 ml @ 1,000 mls/hr 1X ONCE IV Last administered on 12/18/21at 14:00; Start 12/18/21 at 14:00; Stop 12/18/21 at 14:59; Status DC Lorazepam (Ativan Inj) 1 mg 1X ONCE IVP Last administered on 12/18/21at 13:46; Start 12/18/21 at 14:15; Stop 12/18/21 at 14:16; Status DC Sodium Chloride 1,000 ml @ 1,000 mls/hr 1X ONCE IV Last administered on 12/18/21at 14:34; Start 12/18/21 at 14:45; Stop 12/18/21 at 15:44; Status DC Levetiracetam 100 ml @ 400 mls/hr 1X ONCE IV Last administered on 12/18/21at 15:29; Start 12/18/21 at 15:00; Stop 12/18/21 at 15:14; Status DC Insulin Human Lispro (HumaLOG) 10 units 1X ONCE SQ ; Start 12/18/21 at 15:15; Stop 12/18/21 at 16:13; Status DC Cefepime HCl (Maxipime) 2 gm 1X ONCE IVP Last administered on 12/18/21at 16:10; Start 12/18/21 at 15:15; Stop 12/18/21 at 15:21; Status DC Hydralazine HCl (Apresoline Inj) 10 mg PRN Q4HRS PRN IVP HYPERTENSION; Start 12/18/21 at 15:45 Cefepime HCl (Maxipime) 2 gm Q24H IVP ; Start 12/19/21 at 15:00 Sodium Chloride 1,000 ml @ 100 mls/hr Q10H IV Last administered on 12/19/21at 04:34; Start 12/18/21 at 17:30 Lorazepam (Ativan Inj) 2 mg PRN Q4HRS PRN IVP SEE COMMENTS; Start 12/18/21 at 17:30 Ondansetron HCl (Zofran) 4 mg PRN Q6HRS PRN IVP NAUSEA/VOMITING; Start 12/18/21 at 17:30 Al Hydroxide/Mg Hydroxide (Mylanta Plus Xs) 30 ml PRN Q3HRS PRN PO HEARTBURN / GAS; Start 12/18/21 at 17:30 Calcium Carbonate/ Glycine (Tums) 500 mg PRN Q3HRS PRN PO UPSET STOMACH; Start 12/18/21 at 17:30 Morphine Sulfate (Morphine Sulfate) 2 mg PRN Q1HR PRN IV PAIN; Start 12/18/21 at 17:30 Acetaminophen (Tylenol) 650 mg PRN Q6HRS PRN PO Headaches, Temp > 101.5F; Start 12/18/21 at 17:30 Magnesium Hydroxide (Milk Of Magnesia) 2,400 mg PRN Q12HR PRN PO CONSTIPATION; Start 12/18/21 at 17:30 Heparin Sodium (Porcine) (Heparin Sodium) 5,000 unit Q12HR SQ Last administered on 12/19/21at 09:03; Start 12/18/21 at 21:00 Insulin Glargine (Lantus Syringe) 20 unit QHS SQ Last administered on 12/18/21at 21:08; Start 12/18/21 at 21:00 Insulin Human Lispro (HumaLOG) 0-9 UNITS TIDWMEALS SQ Last administered on 12/19/21at 12:29; Start 12/19/21 at 08:00 Dextrose (Dextrose 50%-Water Syringe) 12.5 gm PRN Q15MIN PRN IV SEE COMMENTS; Start 12/18/21 at 17:45 Dextrose (Iv Dextrose 5%) 250 ml PRN Q15MIN PRN IV SEE COMMENTS; Start 12/18/21 at 17:45 Active Scripts Active Doxycycline Hyclate 100 Mg Capsule 1 Cap PO BID 10 Days Allergies Allergies: Coded Allergies: Penicillins (Verified Allergy, Unknown, 02/12/21) ROS Review of System As per HPI , rest of the ROS is negative Physical Exam Physical Exam General: No acute distress HEENT: PERRLA, EOMI Lungs: Bibasilar crackles, Normal air movement Heart: RRR, no murmurs Cardiovascular: S1, S2 Abdomen: Normal bowel sounds, Soft, No tenderness Extremities: No clubbing, No cyanosis Skin: No rashes, No significant lesion Neuro: AxO, grossly normal Psych/Mental Status: Cooperative currently Vital Signs Vital Signs Date Time Temp Pulse Resp B/P (MAP) Pulse Ox O2 Delivery O2 Flow Rate FiO2 12/19/21 11:00 98.1 78 20 143/79 (100) 97 Room Air 98.1 12/18/21 16:16 2.0 Assessment & Plan BOBBI - Vasomotor , Creatinine trending down with IVF , UOP not recorded , per RN Good UOP. UA pending (was ordered in ER) , raman DEVINE . Supportive care, maintain Hydration/Fluid balance , avoid Nephrotoxins. strict I/O HyperNatremia-Mild- Encourage PO water intake Seizures - Neurology managing Sepsis Dx per primary Likely aspiration pneumonia Hypertensive urgency POA - antihypertensives Labs Labs Laboratory Tests Test 12/18/21 12:50 12/18/21 16:05 12/19/21 10:30 12/19/21 11:32 White Blood Count 5.9 x10^3/uL (4.0-11.0) 4.3 x10^3/uL (4.0-11.0) Red Blood Count 4.19 x10^6/uL (4.30-5.70) 4.15 x10^6/uL (4.30-5.70) Hemoglobin 12.6 g/dL (13.0-17.5) 12.1 g/dL (13.0-17.5) Hematocrit 38.2 % (39.0-53.0) 37.1 % (39.0-53.0) Mean Corpuscular Volume 91 fL (79-100) 89 fL (79-100) Mean Corpuscular Hemoglobin 30 pg (25-35) 29 pg (25-35) Mean Corpuscular Hemoglobin Concent 33 g/dL (31-37) 33 g/dL (31-37) Red Cell Distribution Width 12.3 % (11.5-14.5) 11.8 % (11.5-14.5) Platelet Count 140 x10^3/uL (140-400) 100 x10^3/uL (140-400) Neutrophils (%) (Auto) 52 % (31-73) 36 % (31-73) Lymphocytes (%) (Auto) 36 % (24-48) 51 % (24-48) Monocytes (%) (Auto) 11 % (0-9) 12 % (0-9) Eosinophils (%) (Auto) 0 % (0-3) 0 % (0-3) Basophils (%) (Auto) 1 % (0-3) 1 % (0-3) Neutrophils # (Auto) 3.1 x10^3/uL (1.8-7.7) 1.5 x10^3/uL (1.8-7.7) Lymphocytes # (Auto) 2.2 x10^3/uL (1.0-4.8) 2.2 x10^3/uL (1.0-4.8) Monocytes # (Auto) 0.6 x10^3/uL (0.0-1.1) 0.5 x10^3/uL (0.0-1.1) Eosinophils # (Auto) 0.0 x10^3/uL (0.0-0.7) 0.0 x10^3/uL (0.0-0.7) Basophils # (Auto) 0.1 x10^3/uL (0.0-0.2) 0.1 x10^3/uL (0.0-0.2) Prothrombin Time 12.1 SEC (11.7-14.0) Prothromb Time International Ratio 0.9 (0.8-1.1) Sodium Level 132 mmol/L (136-145) 146 mmol/L (136-145) Potassium Level 4.9 mmol/L (3.5-5.1) 3.7 mmol/L (3.5-5.1) Chloride Level 92 mmol/L (98-107) 111 mmol/L (98-107) Carbon Dioxide Level 24 mmol/L (21-32) 26 mmol/L (21-32) Anion Gap 16 (6-14) 9 (6-14) Blood Urea Nitrogen 43 mg/dL (8-26) 27 mg/dL (8-26) Creatinine 3.2 mg/dL (0.7-1.3) 1.9 mg/dL (0.7-1.3) Estimated GFR (Cockcroft-Gault) 22.7 41.5 BUN/Creatinine Ratio 13 (6-20) Glucose Level 835 mg/dL (70-99) 178 mg/dL (70-99) Lactic Acid Level 7.3 mmol/L (0.4-2.0) 1.7 mmol/L (0.4-2.0) Calcium Level 8.6 mg/dL (8.5-10.1) 8.5 mg/dL (8.5-10.1) Phosphorus Level 5.0 mg/dL (2.6-4.7) Magnesium Level 2.2 mg/dL (1.8-2.4) Total Bilirubin 0.4 mg/dL (0.2-1.0) Aspartate Amino Transf (AST/SGOT) 40 U/L (15-37) Alanine Aminotransferase (ALT/SGPT) 37 U/L (16-63) Alkaline Phosphatase 199 U/L (46-116) Ammonia 13 mcmol/L (11-34) Creatine Kinase 209 U/L (39-308) Troponin I High Sensitivity 50 ng/L (4-75) Total Protein 7.2 g/dL (6.4-8.2) Albumin 3.1 g/dL (3.4-5.0) Albumin/Globulin Ratio 0.8 (1.0-1.7) Ethyl Alcohol Level < 10 mg/dL (0-10) Glucose (Fingerstick) 175 mg/dL (70-99) Laboratory Tests Test 12/18/21 16:05 12/19/21 10:30 12/19/21 11:32 Lactic Acid Level 1.7 mmol/L (0.4-2.0) White Blood Count 4.3 x10^3/uL (4.0-11.0) Red Blood Count 4.15 x10^6/uL (4.30-5.70) Hemoglobin 12.1 g/dL (13.0-17.5) Hematocrit 37.1 % (39.0-53.0) Mean Corpuscular Volume 89 fL (79-100) Mean Corpuscular Hemoglobin 29 pg (25-35) Mean Corpuscular Hemoglobin Concent 33 g/dL (31-37) Red Cell Distribution Width 11.8 % (11.5-14.5) Platelet Count 100 x10^3/uL (140-400) Neutrophils (%) (Auto) 36 % (31-73) Lymphocytes (%) (Auto) 51 % (24-48) Monocytes (%) (Auto) 12 % (0-9) Eosinophils (%) (Auto) 0 % (0-3) Basophils (%) (Auto) 1 % (0-3) Neutrophils # (Auto) 1.5 x10^3/uL (1.8-7.7) Lymphocytes # (Auto) 2.2 x10^3/uL (1.0-4.8) Monocytes # (Auto) 0.5 x10^3/uL (0.0-1.1) Eosinophils # (Auto) 0.0 x10^3/uL (0.0-0.7) Basophils # (Auto) 0.1 x10^3/uL (0.0-0.2) Sodium Level 146 mmol/L (136-145) Potassium Level 3.7 mmol/L (3.5-5.1) Chloride Level 111 mmol/L (98-107) Carbon Dioxide Level 26 mmol/L (21-32) Anion Gap 9 (6-14) Blood Urea Nitrogen 27 mg/dL (8-26) Creatinine 1.9 mg/dL (0.7-1.3) Estimated GFR (Cockcroft-Gault) 41.5 Glucose Level 178 mg/dL (70-99) Calcium Level 8.5 mg/dL (8.5-10.1) Glucose (Fingerstick) 175 mg/dL (70-99) Review All relevant outside records, renal labs, imaging studies, telemetry/EKG's were reviewed. Images Images INDICATION: AMS / Spl. Instructions: / History: . COMPARISON STUDY: None. FINDINGS: Lungs: Normal lung volume. Mild bilateral ill-defined opacities. Pleura: No pleural effusion or pneumothorax. Heart and Mediastinum: The cardiomediastinal silhouette is normal. The tortuous atherosclerotic aorta. IMPRESSION: Mild bilateral ill-defined opacities, which could represent infection or edema. RENATA SANDERS MD Dec 19, 2021 14:33
[2021-12-19] MEDS: CEFEPIME HCL IV Push 2 GM VIAL. IVP SCH (14:53)
[2021-12-19 15:00] VITALS: BP 136/64
[2021-12-19] MEDS ORDERED: METF10007 PO (17:20)
[2021-12-19] MEDS ORDERED: GLIP10TA13 PO (17:20)
[2021-12-19] MEDS ORDERED: ASPI81TA59 PO (17:20)
[2021-12-19] MEDS ORDERED: AMLO-187 PO (17:20)
[2021-12-19] MEDS ORDERED: LINA5TAB2 PO (17:20)
[2021-12-19] MEDS ORDERED: ATEN25TA PO (17:20)
--- NOTE | 2021-12-19 17:36 | EKG ---
[facility] [address] [place] [address] Test Date: 1999-09-19 Test Time: 00:08:41 Pat Name: FAREED MALONE Department: Room: Gender: M [employer] Operator: : 1940 Requested By: FOX BRAMBILA Order Number: [id number] Reading MD: Measurements Intervals [place] Rate: 112 P: 98 OK: 150 QRS: -15 QRSD: 76 T: 61 QT: 316 QTc: 433 Interpretive Statements SINUS TACHYCARDIA LEFT ATRIAL ABNORMALITY LEFTWARD AXIS ABNORMAL ECG RI6.02 Compared to ECG 09/19/1999 00:04:55 Myocardial infarct finding no longer present ST (T wave) deviation no longer present
[2021-12-19 19:00] VITALS: BP 121/65
[2021-12-19] MEDS: LACTOBACILLUS RHAMNOSUS GG 1 CAPSULE. PO SCH (21:36)
[2021-12-19] MEDS: INSULIN GLARGINE SYRINGE. SQ SCH (21:44)
[2021-12-19 23:00] VITALS: BP 145/72
--- NOTE | 2021-12-19 23:18 | PDOC ---
[employer] PROGRESS NOTE Date of Service DOS: DATE: 12/19/21 TIME: 23:16 Chief Complaint Chief Complaint Sepsis Seizure Likely aspiration pneumonia Hyperglycemia BOBBI Hypertensive urgency Plan: No prior known baseline Continue cefepime for possible aspiration pneumonitis IV fluids Consult nephrology and neurology Echocardiogram pending IV lorazepam as needed IV hydralazine as needed History of Present Illness History of Present Illness 12/19 Patient evaluated at bedside. Quite confused still. Neuro nephro consults. Continue antibiotics. PT OT. MRI brain Tuesday. Vitals/I&O Vitals/I&O: Vital Signs Date Time Temp Pulse Resp B/P (MAP) Pulse Ox O2 Delivery O2 Flow Rate FiO2 12/19/21 19:00 98.3 86 18 121/65 (83) 95 98.3 12/19/21 15:00 Room Air 12/18/21 16:16 2.0 I & O 12/18/21 12/18/21 12/19/21 15:00 23:00 07:00 Intake Total 2100 ml 1000 ml Balance 2100 ml 1000 ml Physical Exam General: Alert, Cooperative Heart: Regular rate Lungs: Clear Abdomen: Normal bowel sounds, Soft Extremities: No edema, Normal pulses Skin: No significant lesion Labs Labs: Laboratory Tests Test 12/19/21 10:30 12/19/21 11:32 12/19/21 17:05 12/19/21 20:52 White Blood Count 4.3 x10^3/uL (4.0-11.0) Red Blood Count 4.15 x10^6/uL (4.30-5.70) Hemoglobin 12.1 g/dL (13.0-17.5) Hematocrit 37.1 % (39.0-53.0) Mean Corpuscular Volume 89 fL (79-100) Mean Corpuscular Hemoglobin 29 pg (25-35) Mean Corpuscular Hemoglobin Concent 33 g/dL (31-37) Red Cell Distribution Width 11.8 % (11.5-14.5) Platelet Count 100 x10^3/uL (140-400) Neutrophils (%) (Auto) 36 % (31-73) Lymphocytes (%) (Auto) 51 % (24-48) Monocytes (%) (Auto) 12 % (0-9) Eosinophils (%) (Auto) 0 % (0-3) Basophils (%) (Auto) 1 % (0-3) Neutrophils # (Auto) 1.5 x10^3/uL (1.8-7.7) Lymphocytes # (Auto) 2.2 x10^3/uL (1.0-4.8) Monocytes # (Auto) 0.5 x10^3/uL (0.0-1.1) Eosinophils # (Auto) 0.0 x10^3/uL (0.0-0.7) Basophils # (Auto) 0.1 x10^3/uL (0.0-0.2) Sodium Level 146 mmol/L (136-145) Potassium Level 3.7 mmol/L (3.5-5.1) Chloride Level 111 mmol/L (98-107) Carbon Dioxide Level 26 mmol/L (21-32) Anion Gap 9 (6-14) Blood Urea Nitrogen 27 mg/dL (8-26) Creatinine 1.9 mg/dL (0.7-1.3) Estimated GFR (Cockcroft-Gault) 41.5 Glucose Level 178 mg/dL (70-99) Calcium Level 8.5 mg/dL (8.5-10.1) Glucose (Fingerstick) 175 mg/dL (70-99) 265 mg/dL (70-99) 146 mg/dL (70-99) Assessment and Plan Assessmemt and Plan Problems Medical Problems: (1) Altered mental status Status: Acute (2) Hyperglycemia Status: Acute (3) Lactic acidosis Status: Acute (4) Renal failure Status: Acute Comment Review of Relevant I have reviewed the following items bushra (where applicable) has been applied. Medications: Current Medications Medications (Trade) Dose Ordered Sig/Jacqui Route PRN Reason Start Time Stop Time Status Last Admin Dose Admin Cefepime HCl (Maxipime) 2 gm Q24H IVP 12/19/21 15:00 12/19/21 14:53 Insulin Human Lispro (HumaLOG) 0-9 UNITS TIDWMEALS SQ 12/19/21 08:00 12/19/21 17:52 Lactobacillus Rhamnosus (Culturelle) 1 cap BID PO 12/19/21 21:00 12/19/21 21:36 Justifications for Admission Other Justification ALEKSANDRA BRAGG MD Dec 19, 2021 23:18
[2021-12-20 03:00] VITALS: BP 144/77
[2021-12-20 07:00] VITALS: BP 164/73
[2021-12-20 08:00] LABS: CALCIUM 8.4 mg/dL (8.5-10.1); CREATININE 1.8 mg/dL (0.7-1.3); GFR 44.1; POTASSIUM 3.7 mmol/L (3.5-5.1)
[2021-12-20] MEDS: LACTOBACILLUS RHAMNOSUS GG 1 CAPSULE. PO SCH ×2 (09:04→21:35)
[2021-12-20] MEDS: HEPARIN for SUB-Q USE 5,000 UNIT/ML VIAL. SQ SCH ×2 (09:09→21:31)
[2021-12-20] MEDS: INSULIN LISPRO 300 UNITS/3 ML VIAL. SQ SCH ×5 (09:12→16:44)
[2021-12-20 11:00] VITALS: BP 139/68
--- NOTE | 2021-12-20 12:49 | PDOC ---
DATE OF SERVICE DATE: 12/20/21 TIME: 12:48 SUBJECTIVE ROS No complaints. Denies N/V . No SOB OBJECTIVE Vital Signs Vital Signs Date Time Temp Pulse Resp B/P (MAP) Pulse Ox O2 Delivery O2 Flow Rate FiO2 12/20/21 11:00 98.4 86 20 139/68 (91) 95 Room Air 98.4 I & 0 Intake and Output 12/20/21 07:00 Intake Total 180 ml Output Total 500 ml Balance -320 ml Intake Oral 180 ml Output Urine Total 500 ml PHYSICAL EXAM Physical Exam General: No acute distress HEENT: PERRLA, EOMI Lungs: Bibasilar crackles, Normal air movement Heart: RRR, no murmurs Cardiovascular: S1, S2 Abdomen: Normal bowel sounds, Soft, No tenderness Extremities: No clubbing, No cyanosis Skin: No rashes, No significant lesion Neuro: AxO, grossly normal Psych/Mental Status: Cooperative currently DIAGNOSIS/ASSESSMENT Assessment & Plan BOBBI - Vasomotor , Creatinine trending down , UOP not recorded accurately , per RN Good UOP. UA still pending (was ordered in ER) , raman RN on 10/23 . Supportive care, maintain Hydration/Fluid balance , avoid Nephrotoxins. strict I/O HyperNatremia- resolved Seizures - Neurology managing Sepsis Dx per primary Likely aspiration pneumonia Hypertensive urgency POA - antihypertensives COMMENT/RELEVANT DATA Meds Current Medications Medications (Trade) Dose Ordered Sig/Jacqui Start Time Stop Time Status Last Admin Dose Admin Acetaminophen (Tylenol) 650 mg PRN Q6HRS PRN 12/18/21 17:30 Al Hydroxide/Mg Hydroxide (Mylanta Plus Xs) 30 ml PRN Q3HRS PRN 12/18/21 17:30 Calcium Carbonate/ Glycine (Tums) 500 mg PRN Q3HRS PRN 12/18/21 17:30 Cefepime HCl (Maxipime) 2 gm Q24H 12/19/21 15:00 12/19/21 14:53 2 GM Dextrose (Dextrose 50%-Water Syringe) 12.5 gm PRN Q15MIN PRN 12/18/21 17:45 Dextrose (Iv Dextrose 5%) 250 ml PRN Q15MIN PRN 12/18/21 17:45 Heparin Sodium (Porcine) (Heparin Sodium) 5,000 unit Q12HR 12/18/21 21:00 12/20/21 09:09 5,000 UNIT Hydralazine HCl (Apresoline Inj) 10 mg PRN Q4HRS PRN 12/18/21 15:45 Insulin Glargine (Lantus Syringe) 30 unit QHS 12/20/21 21:00 Insulin Human Lispro (HumaLOG) 10 units TIDAC 12/20/21 11:30 12/20/21 12:27 10 UNITS Lactobacillus Rhamnosus (Culturelle) 1 cap BID 12/19/21 21:00 12/20/21 09:04 1 CAP Levetiracetam 100 ml @ 400 mls/hr 1X ONCE 12/18/21 15:00 12/18/21 15:14 DC 12/18/21 15:29 400 MLS/HR Lorazepam (Ativan Inj) 2 mg PRN Q4HRS PRN 12/18/21 17:30 Magnesium Hydroxide (Milk Of Magnesia) 2,400 mg PRN Q12HR PRN 12/18/21 17:30 Morphine Sulfate (Morphine Sulfate) 2 mg PRN Q1HR PRN 12/18/21 17:30 Ondansetron HCl (Zofran) 4 mg PRN Q6HRS PRN 12/18/21 17:30 Sodium Chloride 1,000 ml @ 100 mls/hr Q10H 12/18/21 17:30 12/19/21 14:54 DC 12/19/21 04:34 100 MLS/HR Lab Laboratory Tests Test 12/19/21 17:05 12/19/21 20:52 12/20/21 06:40 12/20/21 07:35 Glucose (Fingerstick) 265 mg/dL (70-99) 146 mg/dL (70-99) 340 mg/dL (70-99) Erythrocyte Sedimentation Rate 24 (0-15) Sodium Level 142 mmol/L (136-145) Potassium Level 3.7 mmol/L (3.5-5.1) Chloride Level 109 mmol/L (98-107) Carbon Dioxide Level 25 mmol/L (21-32) Anion Gap 8 (6-14) Blood Urea Nitrogen 21 mg/dL (8-26) Creatinine 1.8 mg/dL (0.7-1.3) Estimated GFR (Cockcroft-Gault) 44.1 Glucose Level 290 mg/dL (70-99) Calcium Level 8.4 mg/dL (8.5-10.1) Thyroid Stimulating Hormone (TSH) 0.307 uIU/mL (0.358-3.74) Test 12/20/21 11:46 Glucose (Fingerstick) 149 mg/dL (70-99) Results All relevant outside records, renal labs, imaging studies, telemetry/EKG's were reviewed. Justicifation of Admission Dx: Justifications for Admission: Justification of Admission Dx: N/A RENATA SANDERS MD Dec 20, 2021 12:49
--- NOTE | 2021-12-20 14:36 | PDOC ---
PROGRESS NOTES Date of Service DATE: 12/20/21 TIME: 14:34 Assessment Problems Medical Problems: (1) Altered mental status Status: Acute (2) Hyperglycemia Status: Acute (3) Lactic acidosis Status: Acute (4) Renal failure Status: Acute Seizures with multiple metabolic issues including sepsis, aspiration pneumonia, acute kidney injury, hypertensive urgency, hyperglycemia. His renal parameters have already responded to hydration Possible chronic dementia or intellectual disability Evidence of diabetic neuropathy Plan Hold on anticonvulsants Brain MRI and electroencephalogram on a routine basis, Tuesday, 12/21 Seizure precautions Lab work for other causes of dementia and peripheral neuropathy Treat medical issues. Subjective No complaints Objective Vital Signs Date Time Temp Pulse Resp B/P (MAP) Pulse Ox O2 Delivery O2 Flow Rate FiO2 12/20/21 11:00 98.4 86 20 139/68 (91) 95 Room Air 98.4 12/20/21 08:19 2.0 Intake and Output 12/20/21 07:00 Intake Total 180 ml Output Total 500 ml Balance -320 ml Intake Oral 180 ml Output Urine Total 500 ml PHYSICAL EXAM Alert. Does not know the date or the name of the hospital, and follows commands PERRL. EOMI. CN: no focal findings. Muscle tone: normal. Muscle strength: 4/5 DTR: 1+ Plantar reflex: Flexor Gait: not examined in bed. Sensory exam: Stocking loss. No cerebellar signs elicited. Review of Relevant I have reviewed the following items bushra (where applicable) has been applied. Labs Laboratory Tests Test 12/18/21 16:05 12/19/21 10:30 12/19/21 11:32 12/19/21 17:05 Lactic Acid Level 1.7 mmol/L (0.4-2.0) White Blood Count 4.3 x10^3/uL (4.0-11.0) Red Blood Count 4.15 x10^6/uL (4.30-5.70) Hemoglobin 12.1 g/dL (13.0-17.5) Hematocrit 37.1 % (39.0-53.0) Mean Corpuscular Volume 89 fL (79-100) Mean Corpuscular Hemoglobin 29 pg (25-35) Mean Corpuscular Hemoglobin Concent 33 g/dL (31-37) Red Cell Distribution Width 11.8 % (11.5-14.5) Platelet Count 100 x10^3/uL (140-400) Neutrophils (%) (Auto) 36 % (31-73) Lymphocytes (%) (Auto) 51 % (24-48) Monocytes (%) (Auto) 12 % (0-9) Eosinophils (%) (Auto) 0 % (0-3) Basophils (%) (Auto) 1 % (0-3) Neutrophils # (Auto) 1.5 x10^3/uL (1.8-7.7) Lymphocytes # (Auto) 2.2 x10^3/uL (1.0-4.8) Monocytes # (Auto) 0.5 x10^3/uL (0.0-1.1) Eosinophils # (Auto) 0.0 x10^3/uL (0.0-0.7) Basophils # (Auto) 0.1 x10^3/uL (0.0-0.2) Sodium Level 146 mmol/L (136-145) Potassium Level 3.7 mmol/L (3.5-5.1) Chloride Level 111 mmol/L (98-107) Carbon Dioxide Level 26 mmol/L (21-32) Anion Gap 9 (6-14) Blood Urea Nitrogen 27 mg/dL (8-26) Creatinine 1.9 mg/dL (0.7-1.3) Estimated GFR (Cockcroft-Gault) 41.5 Glucose Level 178 mg/dL (70-99) Calcium Level 8.5 mg/dL (8.5-10.1) Glucose (Fingerstick) 175 mg/dL (70-99) 265 mg/dL (70-99) Test 12/19/21 20:52 12/20/21 06:40 12/20/21 07:35 12/20/21 11:46 Glucose (Fingerstick) 146 mg/dL (70-99) 340 mg/dL (70-99) 149 mg/dL (70-99) Erythrocyte Sedimentation Rate 24 (0-15) Sodium Level 142 mmol/L (136-145) Potassium Level 3.7 mmol/L (3.5-5.1) Chloride Level 109 mmol/L (98-107) Carbon Dioxide Level 25 mmol/L (21-32) Anion Gap 8 (6-14) Blood Urea Nitrogen 21 mg/dL (8-26) Creatinine 1.8 mg/dL (0.7-1.3) Estimated GFR (Cockcroft-Gault) 44.1 Glucose Level 290 mg/dL (70-99) Calcium Level 8.4 mg/dL (8.5-10.1) Thyroid Stimulating Hormone (TSH) 0.307 uIU/mL (0.358-3.74) Laboratory Tests Test 12/19/21 17:05 12/19/21 20:52 12/20/21 06:40 12/20/21 07:35 Glucose (Fingerstick) 265 mg/dL (70-99) 146 mg/dL (70-99) 340 mg/dL (70-99) Erythrocyte Sedimentation Rate 24 (0-15) Sodium Level 142 mmol/L (136-145) Potassium Level 3.7 mmol/L (3.5-5.1) Chloride Level 109 mmol/L (98-107) Carbon Dioxide Level 25 mmol/L (21-32) Anion Gap 8 (6-14) Blood Urea Nitrogen 21 mg/dL (8-26) Creatinine 1.8 mg/dL (0.7-1.3) Estimated GFR (Cockcroft-Gault) 44.1 Glucose Level 290 mg/dL (70-99) Calcium Level 8.4 mg/dL (8.5-10.1) Thyroid Stimulating Hormone (TSH) 0.307 uIU/mL (0.358-3.74) Test 12/20/21 11:46 Glucose (Fingerstick) 149 mg/dL (70-99) Microbiology 12/18/21 Blood Culture - Preliminary, Resulted NO GROWTH AFTER 1 DAY Medications Current Medications Lorazepam (Ativan Inj) 2 mg STK-MED ONCE .ROUTE ; Start 12/18/21 at 13:45; Stop 12/18/21 at 13:45; Status DC Sodium Chloride 1,000 ml @ 1,000 mls/hr 1X ONCE IV Last administered on 12/18/21at 14:00; Start 12/18/21 at 14:00; Stop 12/18/21 at 14:59; Status DC Lorazepam (Ativan Inj) 1 mg 1X ONCE IVP Last administered on 12/18/21at 13:46; Start 12/18/21 at 14:15; Stop 12/18/21 at 14:16; Status DC Sodium Chloride 1,000 ml @ 1,000 mls/hr 1X ONCE IV Last administered on 12/18/21at 14:34; Start 12/18/21 at 14:45; Stop 12/18/21 at 15:44; Status DC Levetiracetam 100 ml @ 400 mls/hr 1X ONCE IV Last administered on 12/18/21at 15:29; Start 12/18/21 at 15:00; Stop 12/18/21 at 15:14; Status DC Insulin Human Lispro (HumaLOG) 10 units 1X ONCE SQ ; Start 12/18/21 at 15:15; Stop 12/18/21 at 16:13; Status DC Cefepime HCl (Maxipime) 2 gm 1X ONCE IVP Last administered on 12/18/21at 16:10; Start 12/18/21 at 15:15; Stop 12/18/21 at 15:21; Status DC Hydralazine HCl (Apresoline Inj) 10 mg PRN Q4HRS PRN IVP HYPERTENSION; Start 12/18/21 at 15:45 Cefepime HCl (Maxipime) 2 gm Q24H IVP Last administered on 12/19/21at 14:53; Start 12/19/21 at 15:00 Sodium Chloride 1,000 ml @ 100 mls/hr Q10H IV Last administered on 12/19/21at 04:34; Start 12/18/21 at 17:30; Stop 12/19/21 at 14:54; Status DC Lorazepam (Ativan Inj) 2 mg PRN Q4HRS PRN IVP SEE COMMENTS; Start 12/18/21 at 17:30 Ondansetron HCl (Zofran) 4 mg PRN Q6HRS PRN IVP NAUSEA/VOMITING; Start 12/18/21 at 17:30 Al Hydroxide/Mg Hydroxide (Mylanta Plus Xs) 30 ml PRN Q3HRS PRN PO HEARTBURN / GAS; Start 12/18/21 at 17:30 Calcium Carbonate/ Glycine (Tums) 500 mg PRN Q3HRS PRN PO UPSET STOMACH; Start 12/18/21 at 17:30 Morphine Sulfate (Morphine Sulfate) 2 mg PRN Q1HR PRN IV PAIN; Start 12/18/21 at 17:30 Acetaminophen (Tylenol) 650 mg PRN Q6HRS PRN PO Headaches, Temp > 101.5F; Start 12/18/21 at 17:30 Magnesium Hydroxide (Milk Of Magnesia) 2,400 mg PRN Q12HR PRN PO CONSTIPATION; Start 12/18/21 at 17:30 Heparin Sodium (Porcine) (Heparin Sodium) 5,000 unit Q12HR SQ Last administered on 12/20/21at 09:09; Start 12/18/21 at 21:00 Insulin Glargine (Lantus Syringe) 20 unit QHS SQ Last administered on 12/19/21at 21:44; Start 12/18/21 at 21:00; Stop 12/20/21 at 11:32; Status DC Insulin Human Lispro (HumaLOG) 0-9 UNITS TIDWMEALS SQ Last administered on 12/20/21at 09:12; Start 12/19/21 at 08:00 Dextrose (Dextrose 50%-Water Syringe) 12.5 gm PRN Q15MIN PRN IV SEE COMMENTS; Start 12/18/21 at 17:45 Dextrose (Iv Dextrose 5%) 250 ml PRN Q15MIN PRN IV SEE COMMENTS; Start 12/18/21 at 17:45 Lactobacillus Rhamnosus (Culturelle) 1 cap BID PO Last administered on 12/20/21at 09:04; Start 12/19/21 at 21:00 Insulin Glargine (Lantus Syringe) 30 unit QHS SQ ; Start 12/20/21 at 21:00 Insulin Human Lispro (HumaLOG) 10 units TIDAC SQ Last administered on 12/20/21at 12:27; Start 12/20/21 at 11:30 Active Scripts Active Doxycycline Hyclate 100 Mg Capsule 1 Cap PO BID 10 Days Reported Children's Aspirin (Aspirin) 81 Mg Tab.chew 1 Tab PO DAILY 30 Days Tradjenta (Linagliptin) 5 Mg Tablet 5 Mg PO DAILY Glipizide 10 Mg Tablet 1 Tab PO BID Metformin Hcl 1,000 Mg Tablet 1,000 Mg PO BIDWMEALS Atenolol 25 Mg Tablet 1 Tab PO DAILY Amlodipine Besylate 10 Mg Tablet 10 Mg PO DAILY Vitals/I & O Vital Sign - Last 24 Hours 12/19/21 12/19/21 12/19/21 12/19/21 15:00 19:00 20:22 23:00 Temp 97.7 98.3 98.4 97.7 98.3 98.4 Pulse 78 86 83 Resp 20 18 18 B/P (MAP) 136/64 (88) 121/65 (83) 145/72 (96) Pulse Ox 88 95 95 O2 Delivery Room Air Room Air 12/20/21 12/20/21 12/20/21 12/20/21 03:00 07:00 08:19 11:00 Temp 98.0 97.8 98.4 98.0 97.8 98.4 Pulse 77 72 86 Resp 18 20 20 B/P (MAP) 144/77 (99) 164/73 (103) 139/68 (91) Pulse Ox 96 100 95 O2 Delivery Room Air Room Air Room Air O2 Flow Rate 2.0 Intake and Output 12/19/21 12/19/21 12/20/21 15:00 23:00 07:00 Intake Total 120 ml 60 ml Output Total 100 ml 400 ml Balance 20 ml -340 ml Justicifation of Admission Dx: Justifications for Admission: Justification of Admission Dx: N/A AMY WATTS MD Dec 20, 2021 14:36
[2021-12-20 15:00] VITALS: BP 119/55
[2021-12-20] MEDS: CEFEPIME HCL IV Push 2 GM VIAL. IVP SCH (16:16)
--- NOTE | 2021-12-20 17:48 | PDOC ---
[facility] PROGRESS NOTE Date of Service DOS: DATE: 12/20/21 TIME: 17:47 Chief Complaint Chief Complaint Sepsis Seizure Likely aspiration pneumonia Hyperglycemia BOBBI Hypertensive urgency Plan: No prior known baseline Continue cefepime for possible aspiration pneumonitis IV fluids Consult nephrology and neurology Echocardiogram pending IV lorazepam as needed IV hydralazine as needed History of Present Illness History of Present Illness 12/20 Patient evaluated examined at bedside. Pretty lethargic and not really answer any questions still. Imaging for tomorrow. Therapy modalities. Nephrology neurology following. 12/19 Patient evaluated at bedside. Quite confused still. Neuro nephro consults. Continue antibiotics. PT OT. MRI brain Tuesday. Vitals/I&O Vitals/I&O: Vital Signs Date Time Temp Pulse Resp B/P (MAP) Pulse Ox O2 Delivery O2 Flow Rate FiO2 12/20/21 15:00 97.8 92 20 119/55 (76) 94 Room Air 97.8 12/20/21 08:19 2.0 I & O 12/19/21 12/19/21 12/20/21 15:00 23:00 07:00 Intake Total 120 ml 60 ml Output Total 100 ml 400 ml Balance 20 ml -340 ml Physical Exam General: Cooperative, No acute distress Heart: Regular rate Lungs: Clear Abdomen: Normal bowel sounds, Soft, No tenderness Extremities: No edema, Normal pulses Skin: No significant lesion Labs Labs: Laboratory Tests Test 12/19/21 20:52 12/20/21 06:40 12/20/21 07:35 12/20/21 11:46 Glucose (Fingerstick) 146 mg/dL (70-99) 340 mg/dL (70-99) 149 mg/dL (70-99) Erythrocyte Sedimentation Rate 24 (0-15) Sodium Level 142 mmol/L (136-145) Potassium Level 3.7 mmol/L (3.5-5.1) Chloride Level 109 mmol/L (98-107) Carbon Dioxide Level 25 mmol/L (21-32) Anion Gap 8 (6-14) Blood Urea Nitrogen 21 mg/dL (8-26) Creatinine 1.8 mg/dL (0.7-1.3) Estimated GFR (Cockcroft-Gault) 44.1 Glucose Level 290 mg/dL (70-99) Calcium Level 8.4 mg/dL (8.5-10.1) Thyroid Stimulating Hormone (TSH) 0.307 uIU/mL (0.358-3.74) Test 12/20/21 16:27 Glucose (Fingerstick) 99 mg/dL (70-99) Assessment and Plan Assessmemt and Plan Problems Medical Problems: (1) Altered mental status Status: Acute (2) Hyperglycemia Status: Acute (3) Lactic acidosis Status: Acute (4) Renal failure Status: Acute Comment Review of Relevant I have reviewed the following items bushra (where applicable) has been applied. Medications: Current Medications Medications (Trade) Dose Ordered Sig/Jacqui Route PRN Reason Start Time Stop Time Status Last Admin Dose Admin Lactobacillus Rhamnosus (Culturelle) 1 cap BID PO 12/19/21 21:00 12/20/21 09:04 Insulin Human Lispro (HumaLOG) 10 units TIDAC SQ 12/20/21 11:30 12/20/21 12:27 Justifications for Admission Other Justification ALEKSANDRA BRAGG MD Dec 20, 2021 17:48
[2021-12-20 19:00] VITALS: BP 177/95
[2021-12-20 19:56] LABS: BASO # 0.1 x10^3/uL (0.0-0.2); BASO % 1 % (0-3); EOS # 0.1 x10^3/uL (0.0-0.7); EOS % 1 % (0-3); HEMATOCRIT 35.1 % (39.0-53.0); HEMOGLOBIN 11.6 g/dL (13.0-17.5); LYMPH # 2.9 x10^3/uL (1.0-4.8); LYMPH % 52 % (24-48); MEAN CORPUSCULAR HEMOGLOBIN 29 pg (25-35); MEAN CORPUSCULAR HGB CONC 33 g/dL (31-37); MEAN CORPUSCULAR VOLUME 89 fL (79-100); MONO # 0.7 x10^3/uL (0.0-1.1); MONO % 13 % (0-9); NEUT # 1.8 x10^3/uL (1.8-7.7); NEUT % 33 % (31-73); PLATELET COUNT 124 x10^3/uL (140-400); RED BLOOD COUNT 3.96 x10^6/uL (4.30-5.70); RED CELL DISTRIBUTION WIDTH 12.3 % (11.5-14.5); WHITE BLOOD COUNT 5.6 x10^3/uL (4.0-11.0)
[2021-12-20] MEDS: INSULIN GLARGINE SYRINGE. SQ SCH (21:33)
[2021-12-20 23:00] VITALS: BP 160/89
[2021-12-21 03:00] VITALS: BP 160/76
[2021-12-21 03:07] LABS: HEMOGLOBIN A1C 14.1 % (4.8-5.6)
[2021-12-21 05:06] LABS: CALCIUM 8.2 mg/dL (8.5-10.1); CREATININE 1.6 mg/dL (0.7-1.3); GFR 50.6; POTASSIUM 3.6 mmol/L (3.5-5.1)
[2021-12-21 07:00] VITALS: BP 160/90
[2021-12-21] MEDS: INSULIN LISPRO 300 UNITS/3 ML VIAL. SQ SCH ×6 (08:00→17:00)
--- NOTE | 2021-12-21 08:45 | PDOC ---
PROGRESS NOTES Date of Service DATE: 12/21/21 TIME: 08:43 Assessment Problems Medical Problems: (1) Altered mental status Status: Acute (2) Hyperglycemia Status: Acute (3) Lactic acidosis Status: Acute (4) Renal failure Status: Acute Seizures with multiple metabolic issues including sepsis, aspiration pneumonia, acute kidney injury, hypertensive urgency, hyperglycemia. His renal parameters have already responded to hydration Possible chronic dementia or intellectual disability Evidence of diabetic neuropathy, labs for other causes negative or pending, note markedly elevated hemoglobin A1c, 14.1 Plan Hold on anticonvulsants Brain MRI and electroencephalogram today Seizure precautions Lab work for other causes of dementia and peripheral neuropathy Treat medical issues. Likely needs placement Told patient no driving until 6 months without a seizure, he says he does not know where his van is, he thinks maybe the police have it Subjective Wants extra salt Objective Vital Signs Date Time Temp Pulse Resp B/P (MAP) Pulse Ox O2 Delivery O2 Flow Rate FiO2 12/21/21 07:00 98.0 82 18 160/90 (113) 96 Room Air 98.0 12/20/21 08:19 2.0 Intake and Output 12/21/21 07:00 Intake Total 630 ml Output Total 200 ml Balance 430 ml Intake Oral 630 ml Output Urine Total 200 ml PHYSICAL EXAM Alert. Does not know the date or the name of the hospital, and follows commands PERRL. EOMI. CN: no focal findings. Muscle tone: normal. Muscle strength: 4/5 DTR: 1+ Plantar reflex: Flexor Gait: not examined in bed. Sensory exam: Stocking loss. No cerebellar signs elicited. Review of Relevant I have reviewed the following items bushra (where applicable) has been applied. Labs Laboratory Tests Test 12/19/21 10:30 12/19/21 11:32 12/19/21 17:05 12/19/21 20:52 White Blood Count 4.3 x10^3/uL (4.0-11.0) Red Blood Count 4.15 x10^6/uL (4.30-5.70) Hemoglobin 12.1 g/dL (13.0-17.5) Hematocrit 37.1 % (39.0-53.0) Mean Corpuscular Volume 89 fL (79-100) Mean Corpuscular Hemoglobin 29 pg (25-35) Mean Corpuscular Hemoglobin Concent 33 g/dL (31-37) Red Cell Distribution Width 11.8 % (11.5-14.5) Platelet Count 100 x10^3/uL (140-400) Neutrophils (%) (Auto) 36 % (31-73) Lymphocytes (%) (Auto) 51 % (24-48) Monocytes (%) (Auto) 12 % (0-9) Eosinophils (%) (Auto) 0 % (0-3) Basophils (%) (Auto) 1 % (0-3) Neutrophils # (Auto) 1.5 x10^3/uL (1.8-7.7) Lymphocytes # (Auto) 2.2 x10^3/uL (1.0-4.8) Monocytes # (Auto) 0.5 x10^3/uL (0.0-1.1) Eosinophils # (Auto) 0.0 x10^3/uL (0.0-0.7) Basophils # (Auto) 0.1 x10^3/uL (0.0-0.2) Sodium Level 146 mmol/L (136-145) Potassium Level 3.7 mmol/L (3.5-5.1) Chloride Level 111 mmol/L (98-107) Carbon Dioxide Level 26 mmol/L (21-32) Anion Gap 9 (6-14) Blood Urea Nitrogen 27 mg/dL (8-26) Creatinine 1.9 mg/dL (0.7-1.3) Estimated GFR (Cockcroft-Gault) 41.5 Glucose Level 178 mg/dL (70-99) Calcium Level 8.5 mg/dL (8.5-10.1) Glucose (Fingerstick) 175 mg/dL (70-99) 265 mg/dL (70-99) 146 mg/dL (70-99) Test 12/20/21 06:40 12/20/21 07:35 12/20/21 11:46 12/20/21 16:27 Erythrocyte Sedimentation Rate 24 (0-15) Sodium Level 142 mmol/L (136-145) Potassium Level 3.7 mmol/L (3.5-5.1) Chloride Level 109 mmol/L (98-107) Carbon Dioxide Level 25 mmol/L (21-32) Anion Gap 8 (6-14) Blood Urea Nitrogen 21 mg/dL (8-26) Creatinine 1.8 mg/dL (0.7-1.3) Estimated GFR (Cockcroft-Gault) 44.1 Glucose Level 290 mg/dL (70-99) Hemoglobin A1c 14.1 % (4.8-5.6) Calcium Level 8.4 mg/dL (8.5-10.1) Thyroid Stimulating Hormone (TSH) 0.307 uIU/mL (0.358-3.74) Glucose (Fingerstick) 340 mg/dL (70-99) 149 mg/dL (70-99) 99 mg/dL (70-99) Test 12/20/21 18:30 12/20/21 21:08 12/21/21 03:35 12/21/21 07:56 White Blood Count 5.6 x10^3/uL (4.0-11.0) Red Blood Count 3.96 x10^6/uL (4.30-5.70) Hemoglobin 11.6 g/dL (13.0-17.5) Hematocrit 35.1 % (39.0-53.0) Mean Corpuscular Volume 89 fL (79-100) Mean Corpuscular Hemoglobin 29 pg (25-35) Mean Corpuscular Hemoglobin Concent 33 g/dL (31-37) Red Cell Distribution Width 12.3 % (11.5-14.5) Platelet Count 124 x10^3/uL (140-400) Neutrophils (%) (Auto) 33 % (31-73) Lymphocytes (%) (Auto) 52 % (24-48) Monocytes (%) (Auto) 13 % (0-9) Eosinophils (%) (Auto) 1 % (0-3) Basophils (%) (Auto) 1 % (0-3) Neutrophils # (Auto) 1.8 x10^3/uL (1.8-7.7) Lymphocytes # (Auto) 2.9 x10^3/uL (1.0-4.8) Monocytes # (Auto) 0.7 x10^3/uL (0.0-1.1) Eosinophils # (Auto) 0.1 x10^3/uL (0.0-0.7) Basophils # (Auto) 0.1 x10^3/uL (0.0-0.2) Glucose (Fingerstick) 214 mg/dL (70-99) 81 mg/dL (70-99) Sodium Level 145 mmol/L (136-145) Potassium Level 3.6 mmol/L (3.5-5.1) Chloride Level 111 mmol/L (98-107) Carbon Dioxide Level 27 mmol/L (21-32) Anion Gap 7 (6-14) Blood Urea Nitrogen 14 mg/dL (8-26) Creatinine 1.6 mg/dL (0.7-1.3) Estimated GFR (Cockcroft-Gault) 50.6 Glucose Level 167 mg/dL (70-99) Calcium Level 8.2 mg/dL (8.5-10.1) Laboratory Tests Test 12/20/21 11:46 12/20/21 16:27 12/20/21 18:30 12/20/21 21:08 Glucose (Fingerstick) 149 mg/dL (70-99) 99 mg/dL (70-99) 214 mg/dL (70-99) White Blood Count 5.6 x10^3/uL (4.0-11.0) Red Blood Count 3.96 x10^6/uL (4.30-5.70) Hemoglobin 11.6 g/dL (13.0-17.5) Hematocrit 35.1 % (39.0-53.0) Mean Corpuscular Volume 89 fL (79-100) Mean Corpuscular Hemoglobin 29 pg (25-35) Mean Corpuscular Hemoglobin Concent 33 g/dL (31-37) Red Cell Distribution Width 12.3 % (11.5-14.5) Platelet Count 124 x10^3/uL (140-400) Neutrophils (%) (Auto) 33 % (31-73) Lymphocytes (%) (Auto) 52 % (24-48) Monocytes (%) (Auto) 13 % (0-9) Eosinophils (%) (Auto) 1 % (0-3) Basophils (%) (Auto) 1 % (0-3) Neutrophils # (Auto) 1.8 x10^3/uL (1.8-7.7) Lymphocytes # (Auto) 2.9 x10^3/uL (1.0-4.8) Monocytes # (Auto) 0.7 x10^3/uL (0.0-1.1) Eosinophils # (Auto) 0.1 x10^3/uL (0.0-0.7) Basophils # (Auto) 0.1 x10^3/uL (0.0-0.2) Test 12/21/21 03:35 12/21/21 07:56 Sodium Level 145 mmol/L (136-145) Potassium Level 3.6 mmol/L (3.5-5.1) Chloride Level 111 mmol/L (98-107) Carbon Dioxide Level 27 mmol/L (21-32) Anion Gap 7 (6-14) Blood Urea Nitrogen 14 mg/dL (8-26) Creatinine 1.6 mg/dL (0.7-1.3) Estimated GFR (Cockcroft-Gault) 50.6 Glucose Level 167 mg/dL (70-99) Calcium Level 8.2 mg/dL (8.5-10.1) Glucose (Fingerstick) 81 mg/dL (70-99) Microbiology 12/18/21 Blood Culture - Preliminary, Resulted NO GROWTH AFTER 2 DAYS Medications Current Medications Lorazepam (Ativan Inj) 2 mg STK-MED ONCE .ROUTE ; Start 12/18/21 at 13:45; Stop 12/18/21 at 13:45; Status DC Sodium Chloride 1,000 ml @ 1,000 mls/hr 1X ONCE IV Last administered on 12/18/21at 14:00; Start 12/18/21 at 14:00; Stop 12/18/21 at 14:59; Status DC Lorazepam (Ativan Inj) 1 mg 1X ONCE IVP Last administered on 12/18/21at 13:46; Start 12/18/21 at 14:15; Stop 12/18/21 at 14:16; Status DC Sodium Chloride 1,000 ml @ 1,000 mls/hr 1X ONCE IV Last administered on 12/18/21at 14:34; Start 12/18/21 at 14:45; Stop 12/18/21 at 15:44; Status DC Levetiracetam 100 ml @ 400 mls/hr 1X ONCE IV Last administered on 12/18/21at 15:29; Start 12/18/21 at 15:00; Stop 12/18/21 at 15:14; Status DC Insulin Human Lispro (HumaLOG) 10 units 1X ONCE SQ ; Start 12/18/21 at 15:15; Stop 12/18/21 at 16:13; Status DC Cefepime HCl (Maxipime) 2 gm 1X ONCE IVP Last administered on 12/18/21at 16:10; Start 12/18/21 at 15:15; Stop 12/18/21 at 15:21; Status DC Hydralazine HCl (Apresoline Inj) 10 mg PRN Q4HRS PRN IVP HYPERTENSION; Start 12/18/21 at 15:45 Cefepime HCl (Maxipime) 2 gm Q24H IVP Last administered on 12/20/21at 16:16; Start 12/19/21 at 15:00 Sodium Chloride 1,000 ml @ 100 mls/hr Q10H IV Last administered on 12/19/21at 04:34; Start 12/18/21 at 17:30; Stop 12/19/21 at 14:54; Status DC Lorazepam (Ativan Inj) 2 mg PRN Q4HRS PRN IVP SEE COMMENTS; Start 12/18/21 at 17:30 Ondansetron HCl (Zofran) 4 mg PRN Q6HRS PRN IVP NAUSEA/VOMITING; Start 12/18/21 at 17:30 Al Hydroxide/Mg Hydroxide (Mylanta Plus Xs) 30 ml PRN Q3HRS PRN PO HEARTBURN / GAS; Start 12/18/21 at 17:30 Calcium Carbonate/ Glycine (Tums) 500 mg PRN Q3HRS PRN PO UPSET STOMACH; Start 12/18/21 at 17:30 Morphine Sulfate (Morphine Sulfate) 2 mg PRN Q1HR PRN IV PAIN; Start 12/18/21 at 17:30 Acetaminophen (Tylenol) 650 mg PRN Q6HRS PRN PO Headaches, Temp > 101.5F; Start 12/18/21 at 17:30 Magnesium Hydroxide (Milk Of Magnesia) 2,400 mg PRN Q12HR PRN PO CONSTIPATION; Start 12/18/21 at 17:30 Heparin Sodium (Porcine) (Heparin Sodium) 5,000 unit Q12HR SQ Last administered on 12/20/21at 21:31; Start 12/18/21 at 21:00 Insulin Glargine (Lantus Syringe) 20 unit QHS SQ Last administered on 12/19/21at 21:44; Start 12/18/21 at 21:00; Stop 12/20/21 at 11:32; Status DC Insulin Human Lispro (HumaLOG) 0-9 UNITS TIDWMEALS SQ Last administered on 12/20/21at 09:12; Start 12/19/21 at 08:00 Dextrose (Dextrose 50%-Water Syringe) 12.5 gm PRN Q15MIN PRN IV SEE COMMENTS; Start 12/18/21 at 17:45 Dextrose (Iv Dextrose 5%) 250 ml PRN Q15MIN PRN IV SEE COMMENTS; Start 12/18/21 at 17:45 Lactobacillus Rhamnosus (Culturelle) 1 cap BID PO Last administered on 12/20/21at 21:35; Start 12/19/21 at 21:00 Insulin Glargine (Lantus Syringe) 30 unit QHS SQ Last administered on 12/20/21at 21:33; Start 12/20/21 at 21:00 Insulin Human Lispro (HumaLOG) 10 units TIDAC SQ Last administered on 12/20/21at 12:27; Start 12/20/21 at 11:30 Active Scripts Active Doxycycline Hyclate 100 Mg Capsule 1 Cap PO BID 10 Days Reported Children's Aspirin (Aspirin) 81 Mg Tab.chew 1 Tab PO DAILY 30 Days Tradjenta (Linagliptin) 5 Mg Tablet 5 Mg PO DAILY Glipizide 10 Mg Tablet 1 Tab PO BID Metformin Hcl 1,000 Mg Tablet 1,000 Mg PO BIDWMEALS Atenolol 25 Mg Tablet 1 Tab PO DAILY Amlodipine Besylate 10 Mg Tablet 10 Mg PO DAILY Vitals/I & O Vital Sign - Last 24 Hours 12/20/21 12/20/21 12/20/21 12/20/21 11:00 15:00 19:00 20:14 Temp 98.4 97.8 97.8 98.4 97.8 97.8 Pulse 86 92 85 Resp 20 20 20 B/P (MAP) 139/68 (91) 119/55 (76) 177/95 (122) Pulse Ox 95 94 96 O2 Delivery Room Air Room Air Room Air 12/20/21 12/21/21 12/21/21 23:00 03:00 07:00 Temp 98.6 97.7 98.0 98.6 97.7 98.0 Pulse 84 85 82 Resp 20 16 18 B/P (MAP) 160/89 (112) 160/76 (104) 160/90 (113) Pulse Ox 99 96 96 O2 Delivery Room Air Intake and Output 12/20/21 12/20/21 12/21/21 15:00 23:00 07:00 Intake Total 360 ml 180 ml 90 ml Output Total 200 ml Balance 360 ml -20 ml 90 ml Justicifation of Admission Dx: Justifications for Admission: Justification of Admission Dx: N/A AMY WATTS MD Dec 21, 2021 08:45
[2021-12-21] MEDS: HEPARIN for SUB-Q USE 5,000 UNIT/ML VIAL. SQ SCH ×2 (09:00→21:33)
--- NOTE | 2021-12-21 09:00 | PDOC ---
PROGRESS NOTES Date of Service: DATE: 12/21/21 TIME: 08:57 Subjective Subjective pt well known to me ,admitted for seizures and uncontrolled DM, BS 800,Pt admitted to Hospitalist service over the weekend. Objective Objective Vital Signs Date Time Temp Pulse Resp B/P (MAP) Pulse Ox O2 Delivery O2 Flow Rate FiO2 12/21/21 07:00 98.0 82 18 160/90 (113) 96 Room Air 98.0 12/20/21 08:19 2.0 Intake and Output 12/21/21 07:00 Intake Total 630 ml Output Total 200 ml Balance 430 ml Intake Oral 630 ml Output Urine Total 200 ml Physical Exam Abdomen: Normal bowel sounds, Soft, No tenderness Heart: Regular rate Extremities: No edema, Normal pulses General: Alert, Cooperative, No acute distress Lungs: Clear to auscultation MUSCULOSKELETAL: No swelling Neuro: Normal speech Psych/Mental Status: Mental status NL Skin: No breakdown, No significant lesion Diagnosis Problem List Problems Medical Problems: (1) Altered mental status Status: Acute (2) Hyperglycemia Status: Acute (3) Lactic acidosis Status: Acute (4) Renal failure Status: Acute Assessment Assessment Problems Medical Problems: (1) Altered mental status Status: Acute (2) Hyperglycemia Status: Acute (3) Lactic acidosis Status: Acute (4) Renal failure Status: Acute Chief Complaint Sepsis Seizure Likely aspiration pneumonia Hyperglycemia BBOBI Hypertensive urgency Plan:pt recognize me and able to have conversation MRI and EEG today BS 100 to 200 range Continue cefepime for possible aspiration pneumonitis IV fluids Consult nephrology and neurology appreciated Echocardiogram and cardiology consult IV lorazepam as needed social service consult . wll need SNU Plan Plan of Care Problems Medical Problems: (1) Altered mental status Status: Acute (2) Hyperglycemia Status: Acute (3) Lactic acidosis Status: Acute (4) Renal failure Status: Acute Comment Review of Relevant I have reviewed the following items bushra (where applicable) has been applied. Labs Laboratory Tests Test 12/20/21 11:46 12/20/21 16:27 12/20/21 18:30 12/20/21 21:08 Glucose (Fingerstick) 149 mg/dL (70-99) 99 mg/dL (70-99) 214 mg/dL (70-99) White Blood Count 5.6 x10^3/uL (4.0-11.0) Red Blood Count 3.96 x10^6/uL (4.30-5.70) Hemoglobin 11.6 g/dL (13.0-17.5) Hematocrit 35.1 % (39.0-53.0) Mean Corpuscular Volume 89 fL (79-100) Mean Corpuscular Hemoglobin 29 pg (25-35) Mean Corpuscular Hemoglobin Concent 33 g/dL (31-37) Red Cell Distribution Width 12.3 % (11.5-14.5) Platelet Count 124 x10^3/uL (140-400) Neutrophils (%) (Auto) 33 % (31-73) Lymphocytes (%) (Auto) 52 % (24-48) Monocytes (%) (Auto) 13 % (0-9) Eosinophils (%) (Auto) 1 % (0-3) Basophils (%) (Auto) 1 % (0-3) Neutrophils # (Auto) 1.8 x10^3/uL (1.8-7.7) Lymphocytes # (Auto) 2.9 x10^3/uL (1.0-4.8) Monocytes # (Auto) 0.7 x10^3/uL (0.0-1.1) Eosinophils # (Auto) 0.1 x10^3/uL (0.0-0.7) Basophils # (Auto) 0.1 x10^3/uL (0.0-0.2) Test 12/21/21 03:35 12/21/21 07:56 Sodium Level 145 mmol/L (136-145) Potassium Level 3.6 mmol/L (3.5-5.1) Chloride Level 111 mmol/L (98-107) Carbon Dioxide Level 27 mmol/L (21-32) Anion Gap 7 (6-14) Blood Urea Nitrogen 14 mg/dL (8-26) Creatinine 1.6 mg/dL (0.7-1.3) Estimated GFR (Cockcroft-Gault) 50.6 Glucose Level 167 mg/dL (70-99) Calcium Level 8.2 mg/dL (8.5-10.1) Glucose (Fingerstick) 81 mg/dL (70-99) Microbiology 12/18/21 Blood Culture - Preliminary, Resulted NO GROWTH AFTER 2 DAYS Medications Current Medications Insulin Glargine (Lantus Syringe) 30 unit QHS SQ Last administered on 12/20/21at 21:33; Start 12/20/21 at 21:00 Insulin Human Lispro (HumaLOG) 10 units TIDAC SQ Last administered on 12/20/21at 12:27; Start 12/20/21 at 11:30 Vitals/I & O Vital Sign - Last 24 Hours 12/20/21 12/20/21 12/20/21 12/20/21 11:00 15:00 19:00 20:14 Temp 98.4 97.8 97.8 98.4 97.8 97.8 Pulse 86 92 85 Resp 20 20 20 B/P (MAP) 139/68 (91) 119/55 (76) 177/95 (122) Pulse Ox 95 94 96 O2 Delivery Room Air Room Air Room Air 12/20/21 12/21/21 12/21/21 23:00 03:00 07:00 Temp 98.6 97.7 98.0 98.6 97.7 98.0 Pulse 84 85 82 Resp 20 16 18 B/P (MAP) 160/89 (112) 160/76 (104) 160/90 (113) Pulse Ox 99 96 96 O2 Delivery Room Air Intake and Output 12/20/21 12/20/21 12/21/21 15:00 23:00 07:00 Intake Total 360 ml 180 ml 90 ml Output Total 200 ml Balance 360 ml -20 ml 90 ml Justifications for Admission Other Justification SHABBIR WEBSTER MD Dec 21, 2021 09:00
[2021-12-21] MEDS: LACTOBACILLUS RHAMNOSUS GG 1 CAPSULE. PO SCH ×2 (09:01→21:26)
--- NOTE | 2021-12-21 09:23 | PDOC ---
DATE OF SERVICE DATE: 12/21/21 TIME: 09:23 SUBJECTIVE ROS States he was feling a little dizzy a while ago - in bed. , resolved now Denies N/V . No SOB OBJECTIVE Vital Signs Vital Signs Date Time Temp Pulse Resp B/P (MAP) Pulse Ox O2 Delivery O2 Flow Rate FiO2 12/21/21 07:00 98.0 82 18 160/90 (113) 96 Room Air 98.0 12/20/21 08:19 2.0 I & 0 Intake and Output 12/21/21 07:00 Intake Total 630 ml Output Total 200 ml Balance 430 ml Intake Oral 630 ml Output Urine Total 200 ml PHYSICAL EXAM Physical Exam General: No acute distress HEENT: PERRLA, EOMI Lungs: Bibasilar crackles, Normal air movement Heart: RRR, no murmurs Cardiovascular: S1, S2 Abdomen: Normal bowel sounds, Soft, No tenderness Extremities: No clubbing, No cyanosis Skin: No rashes, No significant lesion Neuro: AxO, grossly normal Psych/Mental Status: Cooperative currently DIAGNOSIS/ASSESSMENT Assessment & Plan BOBBI - Vasomotor , Creatinine trending down , UOP not recorded accurately , per RN Good UOP. Creat trending down and stable. Baseline unknown to me UA still not done (was ordered in ER) , raman RN on 10/23 . Supportive care, maintain Hydration/Fluid balance , avoid Nephrotoxins. strict I/O HyperNatremia- resolved Seizures - Neurology managing Sepsis Dx per primary Likely aspiration pneumonia Hypertensive urgency POA - antihypertensives COMMENT/RELEVANT DATA Meds Current Medications Medications (Trade) Dose Ordered Sig/Jacqui Start Time Stop Time Status Last Admin Dose Admin Acetaminophen (Tylenol) 650 mg PRN Q6HRS PRN 12/18/21 17:30 Al Hydroxide/Mg Hydroxide (Mylanta Plus Xs) 30 ml PRN Q3HRS PRN 12/18/21 17:30 Calcium Carbonate/ Glycine (Tums) 500 mg PRN Q3HRS PRN 12/18/21 17:30 Cefepime HCl (Maxipime) 2 gm Q24H 12/19/21 15:00 12/20/21 16:16 2 GM Dextrose (Dextrose 50%-Water Syringe) 12.5 gm PRN Q15MIN PRN 12/18/21 17:45 Dextrose (Iv Dextrose 5%) 250 ml PRN Q15MIN PRN 12/18/21 17:45 Heparin Sodium (Porcine) (Heparin Sodium) 5,000 unit Q12HR 12/18/21 21:00 12/21/21 09:00 5,000 UNIT Hydralazine HCl (Apresoline Inj) 10 mg PRN Q4HRS PRN 12/18/21 15:45 Insulin Glargine (Lantus Syringe) 30 unit QHS 12/20/21 21:00 12/20/21 21:33 30 UNIT Insulin Human Lispro (HumaLOG) 10 units TIDAC 12/20/21 11:30 12/21/21 08:59 10 UNITS Lactobacillus Rhamnosus (Culturelle) 1 cap BID 12/19/21 21:00 12/21/21 09:01 1 CAP Levetiracetam 100 ml @ 400 mls/hr 1X ONCE 12/18/21 15:00 12/18/21 15:14 DC 12/18/21 15:29 400 MLS/HR Lorazepam (Ativan Inj) 2 mg PRN Q4HRS PRN 12/18/21 17:30 Magnesium Hydroxide (Milk Of Magnesia) 2,400 mg PRN Q12HR PRN 12/18/21 17:30 Morphine Sulfate (Morphine Sulfate) 2 mg PRN Q1HR PRN 12/18/21 17:30 Ondansetron HCl (Zofran) 4 mg PRN Q6HRS PRN 12/18/21 17:30 Sodium Chloride 1,000 ml @ 100 mls/hr Q10H 12/18/21 17:30 12/19/21 14:54 DC 12/19/21 04:34 100 MLS/HR Lab Laboratory Tests Test 12/20/21 11:46 12/20/21 16:27 12/20/21 18:30 12/20/21 21:08 Glucose (Fingerstick) 149 mg/dL (70-99) 99 mg/dL (70-99) 214 mg/dL (70-99) White Blood Count 5.6 x10^3/uL (4.0-11.0) Red Blood Count 3.96 x10^6/uL (4.30-5.70) Hemoglobin 11.6 g/dL (13.0-17.5) Hematocrit 35.1 % (39.0-53.0) Mean Corpuscular Volume 89 fL (79-100) Mean Corpuscular Hemoglobin 29 pg (25-35) Mean Corpuscular Hemoglobin Concent 33 g/dL (31-37) Red Cell Distribution Width 12.3 % (11.5-14.5) Platelet Count 124 x10^3/uL (140-400) Neutrophils (%) (Auto) 33 % (31-73) Lymphocytes (%) (Auto) 52 % (24-48) Monocytes (%) (Auto) 13 % (0-9) Eosinophils (%) (Auto) 1 % (0-3) Basophils (%) (Auto) 1 % (0-3) Neutrophils # (Auto) 1.8 x10^3/uL (1.8-7.7) Lymphocytes # (Auto) 2.9 x10^3/uL (1.0-4.8) Monocytes # (Auto) 0.7 x10^3/uL (0.0-1.1) Eosinophils # (Auto) 0.1 x10^3/uL (0.0-0.7) Basophils # (Auto) 0.1 x10^3/uL (0.0-0.2) Test 12/21/21 03:35 12/21/21 07:56 Sodium Level 145 mmol/L (136-145) Potassium Level 3.6 mmol/L (3.5-5.1) Chloride Level 111 mmol/L (98-107) Carbon Dioxide Level 27 mmol/L (21-32) Anion Gap 7 (6-14) Blood Urea Nitrogen 14 mg/dL (8-26) Creatinine 1.6 mg/dL (0.7-1.3) Estimated GFR (Cockcroft-Gault) 50.6 Glucose Level 167 mg/dL (70-99) Calcium Level 8.2 mg/dL (8.5-10.1) Glucose (Fingerstick) 81 mg/dL (70-99) Results All relevant outside records, renal labs, imaging studies, telemetry/EKG's were reviewed. Justicifation of Admission Dx: Justifications for Admission: Justification of Admission Dx: N/A RENATA SANDERS MD Dec 21, 2021 09:23
[2021-12-21 11:00] VITALS: BP 165/72
--- NOTE | 2021-12-21 14:36 | PDOC2 ---
CINDA ORDAZ [employer] 12/21/21 1436: CARDIAC CONSULT DATE OF CONSULT Date of Consult DATE: 12/21/21 TIME: 14:30 REASON FOR CONSULT Reason for Consult: H/o CAD REFERRING PHYSICIAN Referring Physician: Dr. Jamison SOURCE Source: Chart review HISTORY OF PRESENT ILLNESS HISTORY OF PRESENT ILLNESS This is an 81 yo male who presented secondary to altered mental status. EMS was called by bystander who noted patient with seizure like activity. Patient was confused upon arrival and unable to provide any history. Blood sugar was 835. Systolic blood pressure was > 200. Mentation has improved. He presently denies and chest pain, palpitations, or dizziness. Given h/o CAD, cardiology consultation was obtained. PAST MEDICAL HISTORY Cardiovascular: CAD (s/p PCI/stent RCA), HTN, Hyperlipidemia Renal/: Chronic renal insuff Endocrine: Diabetes PAST SURGICAL HISTORY Past Surgical History PCI to RCA and right knee surgery FAMILY HISTORY Family History: Family History Unknown SOCIAL HISTORY Smoke: Quit ALCOHOL: none Drugs: None Lives: Alone CURRENT MEDICATIONS CURRENT MEDICATIONS Current Medications Medications (Trade) Dose Ordered Sig/Jacqui Route PRN Reason Start Time Stop Time Status Last Admin Dose Admin Insulin Glargine (Lantus Syringe) 30 unit QHS SQ 12/20/21 21:00 12/20/21 21:33 ALLERGIES ALLERGIES: Coded Allergies: Penicillins (Verified Allergy, Unknown, 02/12/21) ROS Review of System 14 point ROS conducted with pertinent positives noted above in hPI PHYSICAL EXAM General: Alert, Cooperative, No acute distress HEENT: Atraumatic Lungs: Clear to auscultation, Other (diminished bases) Heart: Regular rate Abdomen: Soft, No tenderness Extremities: No edema Skin: No significant lesion Neuro: Normal speech, Sensation intact Psych/Mental Status: Mood NL MUSCULOSKELETAL: Osteoarthritic changes both hands VITALS/I&O VITALS/I&O: Vital Signs Date Time Temp Pulse Resp B/P (MAP) Pulse Ox O2 Delivery O2 Flow Rate FiO2 12/21/21 11:00 98.6 92 18 165/72 (103) 95 Room Air 98.6 12/20/21 08:19 2.0 I & O 12/20/21 12/20/21 12/21/21 15:00 23:00 07:00 Intake Total 360 ml 180 ml 90 ml Output Total 200 ml Balance 360 ml -20 ml 90 ml LABS Lab: Laboratory Tests Test 12/20/21 16:27 12/20/21 18:30 12/20/21 21:08 12/21/21 03:35 Glucose (Fingerstick) 99 mg/dL (70-99) 214 mg/dL (70-99) H White Blood Count 5.6 x10^3/uL (4.0-11.0) Red Blood Count 3.96 x10^6/uL (4.30-5.70) L Hemoglobin 11.6 g/dL (13.0-17.5) L Hematocrit 35.1 % (39.0-53.0) L Mean Corpuscular Volume 89 fL (79-100) Mean Corpuscular Hemoglobin 29 pg (25-35) Mean Corpuscular Hemoglobin Concent 33 g/dL (31-37) Red Cell Distribution Width 12.3 % (11.5-14.5) Platelet Count 124 x10^3/uL (140-400) L Neutrophils (%) (Auto) 33 % (31-73) Lymphocytes (%) (Auto) 52 % (24-48) H Monocytes (%) (Auto) 13 % (0-9) H Eosinophils (%) (Auto) 1 % (0-3) Basophils (%) (Auto) 1 % (0-3) Neutrophils # (Auto) 1.8 x10^3/uL (1.8-7.7) Lymphocytes # (Auto) 2.9 x10^3/uL (1.0-4.8) Monocytes # (Auto) 0.7 x10^3/uL (0.0-1.1) Eosinophils # (Auto) 0.1 x10^3/uL (0.0-0.7) Basophils # (Auto) 0.1 x10^3/uL (0.0-0.2) Sodium Level 145 mmol/L (136-145) Potassium Level 3.6 mmol/L (3.5-5.1) Chloride Level 111 mmol/L (98-107) H Carbon Dioxide Level 27 mmol/L (21-32) Anion Gap 7 (6-14) Blood Urea Nitrogen 14 mg/dL (8-26) Creatinine 1.6 mg/dL (0.7-1.3) H Estimated GFR (Cockcroft-Gault) 50.6 Glucose Level 167 mg/dL (70-99) H Calcium Level 8.2 mg/dL (8.5-10.1) L Test 12/21/21 07:56 12/21/21 11:41 Glucose (Fingerstick) 81 mg/dL (70-99) 89 mg/dL (70-99) Laboratory Tests 12/20/21 18:30 Laboratory Tests 12/21/21 03:35 ASSESSMENT/PLAN ASSESSMENT/PLAN 1. Seizure; CT head and MRI without acute findings 2. Hypertensive urgency; BP improved, but remains elevated 3. CAD s/p remote PCI/stent to the RCA. Follows with [facility] 4. ? aspiration PNA 5. Hyperlipidemia 6. Diabetes, II with significant hyperglycemia. BG > 800 upon arrival. A1C 14.1. as per IM 7. BOBBI on CKD; improved 8. Lactic acidosis; better Recommendations Resume home antiHTN therapy. Titrate as warranted ASA, satin Secondary prevention Echocardiogram ordered Outpatient ischemic evaluation if none recently. Supportive care JACOB CANTU MD 12/21/21 6158: CARDIAC CONSULT ASSESSMENT/PLAN ASSESSMENT/PLAN Patient seen and examined He is feeling better. I agree with our nurse practitioners assessment and plan. 1. Seizure; CT head and MRI without acute findings 2. Hypertensive urgency; BP improved, but remains elevated. Resuming home medications as above. 3. CAD s/p remote PCI/stent to the RCA. ASA. Echo pending. Follows with [facility] 4. ? aspiration PNA 5. Hyperlipidemia. Statin. 6. Diabetes, II with significant hyperglycemia. BG > 800 upon arrival. A1C 14.1. as per IM 7. BOBBI on CKD; improved. Monitoring lab. 8. Lactic acidosis; better CINDA ORDAZ APRN Dec 21, 2021 14:36 JACOB CANTU MD Dec 21, 2021 17:59
[2021-12-21 15:00] VITALS: BP 152/69
[2021-12-21] MEDS: CEFEPIME HCL IV Push 2 GM VIAL. IVP SCH (15:00)
--- NOTE | 2021-12-21 15:44 | EEG ---
DATE OF SERVICE: 12/21/2021 ELECTROENCEPHALOGRAM EEG NUMBER: [id number] performed on 12/21/2021. OBJECTIVE: The patient is an 81-year-old male with seizures 3 days ago. DESCRIPTION: This is a digital study. Electrodes are placed according to international 10-20 system. Bipolar and referential montages are available. Activation procedures typically include hyperventilation and intermittent photic stimulation. INTERPRETATION: The waking background consists of 8 Hz, 50-100 microvolt activity, symmetrically distributed over parieto-occipital regions and reactive to eye opening. Hyperventilation and intermittent photic stimulation are noncontributory. Stage 1 sleep is achieved with normal electroencephalogram patterns. IMPRESSION: This electroencephalogram with the patient awake and asleep is within normal limits. There is no focal, paroxysmal, or epileptiform activity. Thank you for letting us help with the patient's care. ISHAAN DR: Rg TID: [id number]
--- NOTE | 2021-12-21 15:51 | RAD ---
EXAMINATION: XR CHEST 2V CLINICAL HISTORY: Follow-up pneumonia. TECHNIQUE: XR CHEST 2V COMPARISON: None FINDINGS/ IMPRESSION: Similar to slightly increased diffuse interstitial and bilateral patchy alveolar opacities. No eviden ce of pleural effusion or pneumothorax. Stable heart size. Electronically signed by: George Vilchis DO (12/21/2021 3:49 PM) [id number]
--- NOTE | 2021-12-21 16:12 | RAD ---
MRI BRAIN WO Date: 12/21/2021 2:39 PM Indication: seizures Comparison: CT 12/18/2021. Technique: Multiplanar multisequence MRI of the brain was performed without intravenous contrast usin g the standard protocol. Findings: Motion artifact degrades image quality. No acute infarct. No acute or chronic hemorrhage. The ventricles are normal in size and configuration without hydrocephalus. Mild scattered FLAIR hyperintensities in the subcortical and periventricular deep white matter, a nonspecific finding, most commonly seen with chronic small vessel ischemic disea se. The scalp and calvarium are normal. The pituitary and sella are normal. No Chiari malformation. The v isualized upper cervical spine is normal. The visualized orbits and globes are normal. The visualized paranasal sinuses are clear. The mastoid air cells are clear. Normal flow voids within the vertebral, basilar, and internal carotid arteries indicating patency. IMPRESSION: 1. No acute infarct, hemorrhage, mass, or hydrocephalus. 2. Mild chronic small vessel ischemic disease. Electronically signed by: Dre Gibson MD (12/21/2021 4:09 PM) [facility]
[2021-12-21] MEDS: ASPIRIN CHEWABLE 81 MG TABLET. PO SCH (17:08)
[2021-12-21] MEDS: ATENOLOL 25 MG TABLET. PO SCH (17:09)
[2021-12-21 19:49] VITALS: BP 171/76
[2021-12-21] MEDS: INSULIN GLARGINE SYRINGE. SQ SCH (21:00)
[2021-12-21] MEDS: ATORVASTATIN CALCIUM 40 MG TABLET. PO SCH (21:26)
[2021-12-21 23:05] VITALS: BP 172/86
[2021-12-22 03:12] VITALS: BP 182/79
[2021-12-22 07:00] VITALS: BP 146/66
[2021-12-22] MEDS ORDERED: PERFLUTREN PROTEIN-A MICROSPHR 0.22 MG/ML 3 ML VIAL. IV ONE (07:00)
[2021-12-22] MEDS: INSULIN LISPRO 300 UNITS/3 ML VIAL. SQ SCH ×6 (07:30→17:23)
[2021-12-22] MEDS: ATENOLOL 25 MG TABLET. PO SCH (08:26)
[2021-12-22] MEDS: LACTOBACILLUS RHAMNOSUS GG 1 CAPSULE. PO SCH ×2 (08:26→21:02)
[2021-12-22] MEDS: ASPIRIN CHEWABLE 81 MG TABLET. PO SCH (08:27)
[2021-12-22] MEDS: HEPARIN for SUB-Q USE 5,000 UNIT/ML VIAL. SQ SCH ×2 (08:30→21:08)
[2021-12-22 08:38] LABS: CALCIUM 8.7 mg/dL (8.5-10.1); CREATININE 1.5 mg/dL (0.7-1.3); GFR 54.5; POTASSIUM 3.6 mmol/L (3.5-5.1)
--- NOTE | 2021-12-22 08:51 | PDOC ---
PROGRESS NOTES Date of Service DATE: 12/22/21 TIME: 08:49 Assessment Problems Medical Problems: (1) Altered mental status Status: Acute (2) Hyperglycemia Status: Acute (3) Lactic acidosis Status: Acute (4) Renal failure Status: Acute Seizures with multiple metabolic issues including sepsis, aspiration pneumonia, acute kidney injury, hypertensive urgency, hyperglycemia. His renal parameters have already responded to hydration MRI of the brain and electroencephalogram are negative Possible chronic dementia or intellectual disability Evidence of diabetic neuropathy, labs for other causes negative or pending, note markedly elevated hemoglobin A1c, 14.1 Plan Hold on anticonvulsants given the fact the seizures have obvious metabolic provocations and EEG and MRI are negative Seizure precautions Lab work for other causes of dementia and peripheral neuropathy, negative so far Treat medical issues. Needs SNU placement No driving until 6 months without a seizure Discussed with Dr. Jamison Subjective No complaints Objective Vital Signs Date Time Temp Pulse Resp B/P (MAP) Pulse Ox O2 Delivery O2 Flow Rate FiO2 12/22/21 08:26 80 146/66 12/22/21 07:00 98.9 19 96 Room Air 98.9 Intake and Output 12/22/21 07:00 Intake Total 350 ml Output Total 1350 ml Balance -1000 ml Intake Oral 350 ml Output Urine Total 1350 ml PHYSICAL EXAM Alert. Does not know the date or the name of the hospital, follows commands PERRL. EOMI. CN: no focal findings. Muscle tone: normal. Muscle strength: 4/5 DTR: 1+ Plantar reflex: Flexor Gait: not examined in bed. Sensory exam: Stocking loss. No cerebellar signs elicited. Review of Relevant I have reviewed the following items bushra (where applicable) has been applied. Labs Laboratory Tests Test 12/20/21 11:46 12/20/21 16:27 12/20/21 18:30 12/20/21 21:08 Glucose (Fingerstick) 149 mg/dL (70-99) 99 mg/dL (70-99) 214 mg/dL (70-99) White Blood Count 5.6 x10^3/uL (4.0-11.0) Red Blood Count 3.96 x10^6/uL (4.30-5.70) Hemoglobin 11.6 g/dL (13.0-17.5) Hematocrit 35.1 % (39.0-53.0) Mean Corpuscular Volume 89 fL (79-100) Mean Corpuscular Hemoglobin 29 pg (25-35) Mean Corpuscular Hemoglobin Concent 33 g/dL (31-37) Red Cell Distribution Width 12.3 % (11.5-14.5) Platelet Count 124 x10^3/uL (140-400) Neutrophils (%) (Auto) 33 % (31-73) Lymphocytes (%) (Auto) 52 % (24-48) Monocytes (%) (Auto) 13 % (0-9) Eosinophils (%) (Auto) 1 % (0-3) Basophils (%) (Auto) 1 % (0-3) Neutrophils # (Auto) 1.8 x10^3/uL (1.8-7.7) Lymphocytes # (Auto) 2.9 x10^3/uL (1.0-4.8) Monocytes # (Auto) 0.7 x10^3/uL (0.0-1.1) Eosinophils # (Auto) 0.1 x10^3/uL (0.0-0.7) Basophils # (Auto) 0.1 x10^3/uL (0.0-0.2) Test 12/21/21 03:35 12/21/21 07:56 12/21/21 11:41 12/21/21 16:59 Sodium Level 145 mmol/L (136-145) Potassium Level 3.6 mmol/L (3.5-5.1) Chloride Level 111 mmol/L (98-107) Carbon Dioxide Level 27 mmol/L (21-32) Anion Gap 7 (6-14) Blood Urea Nitrogen 14 mg/dL (8-26) Creatinine 1.6 mg/dL (0.7-1.3) Estimated GFR (Cockcroft-Gault) 50.6 Glucose Level 167 mg/dL (70-99) Calcium Level 8.2 mg/dL (8.5-10.1) Glucose (Fingerstick) 81 mg/dL (70-99) 89 mg/dL (70-99) 109 mg/dL (70-99) Test 12/21/21 20:22 12/22/21 06:30 12/22/21 07:43 Glucose (Fingerstick) 95 mg/dL (70-99) 258 mg/dL (70-99) Sodium Level 141 mmol/L (136-145) Potassium Level 3.6 mmol/L (3.5-5.1) Chloride Level 107 mmol/L (98-107) Carbon Dioxide Level 22 mmol/L (21-32) Anion Gap 12 (6-14) Blood Urea Nitrogen 15 mg/dL (8-26) Creatinine 1.5 mg/dL (0.7-1.3) Estimated GFR (Cockcroft-Gault) 54.5 Glucose Level 229 mg/dL (70-99) Calcium Level 8.7 mg/dL (8.5-10.1) Laboratory Tests Test 12/21/21 11:41 12/21/21 16:59 12/21/21 20:22 12/22/21 06:30 Glucose (Fingerstick) 89 mg/dL (70-99) 109 mg/dL (70-99) 95 mg/dL (70-99) Sodium Level 141 mmol/L (136-145) Potassium Level 3.6 mmol/L (3.5-5.1) Chloride Level 107 mmol/L (98-107) Carbon Dioxide Level 22 mmol/L (21-32) Anion Gap 12 (6-14) Blood Urea Nitrogen 15 mg/dL (8-26) Creatinine 1.5 mg/dL (0.7-1.3) Estimated GFR (Cockcroft-Gault) 54.5 Glucose Level 229 mg/dL (70-99) Calcium Level 8.7 mg/dL (8.5-10.1) Test 12/22/21 07:43 Glucose (Fingerstick) 258 mg/dL (70-99) Microbiology 12/18/21 Blood Culture - Preliminary, Resulted NO GROWTH AFTER 3 DAYS Medications Current Medications Lorazepam (Ativan Inj) 2 mg STK-MED ONCE .ROUTE ; Start 12/18/21 at 13:45; Stop 12/18/21 at 13:45; Status DC Sodium Chloride 1,000 ml @ 1,000 mls/hr 1X ONCE IV Last administered on 12/18/21at 14:00; Start 12/18/21 at 14:00; Stop 12/18/21 at 14:59; Status DC Lorazepam (Ativan Inj) 1 mg 1X ONCE IVP Last administered on 12/18/21at 13:46; Start 12/18/21 at 14:15; Stop 12/18/21 at 14:16; Status DC Sodium Chloride 1,000 ml @ 1,000 mls/hr 1X ONCE IV Last administered on 12/18/21at 14:34; Start 12/18/21 at 14:45; Stop 12/18/21 at 15:44; Status DC Levetiracetam 100 ml @ 400 mls/hr 1X ONCE IV Last administered on 12/18/21at 15:29; Start 12/18/21 at 15:00; Stop 12/18/21 at 15:14; Status DC Insulin Human Lispro (HumaLOG) 10 units 1X ONCE SQ ; Start 12/18/21 at 15:15; Stop 12/18/21 at 16:13; Status DC Cefepime HCl (Maxipime) 2 gm 1X ONCE IVP Last administered on 12/18/21at 16:10; Start 12/18/21 at 15:15; Stop 12/18/21 at 15:21; Status DC Hydralazine HCl (Apresoline Inj) 10 mg PRN Q4HRS PRN IVP HYPERTENSION Last administered on 12/22/21at 04:13; Start 12/18/21 at 15:45 Cefepime HCl (Maxipime) 2 gm Q24H IVP Last administered on 12/21/21at 15:00; Start 12/19/21 at 15:00 Sodium Chloride 1,000 ml @ 100 mls/hr Q10H IV Last administered on 12/19/21at 0 4:34; Start 12/18/21 at 17:30; Stop 12/19/21 at 14:54; Status DC Lorazepam (Ativan Inj) 2 mg PRN Q4HRS PRN IVP SEE COMMENTS; Start 12/18/21 at 17:30 Ondansetron HCl (Zofran) 4 mg PRN Q6HRS PRN IVP NAUSEA/VOMITING; Start 12/18/21 at 17:30 Al Hydroxide/Mg Hydroxide (Mylanta Plus Xs) 30 ml PRN Q3HRS PRN PO HEARTBURN / GAS; Start 12/18/21 at 17:30 Calcium Carbonate/ Glycine (Tums) 500 mg PRN Q3HRS PRN PO UPSET STOMACH; Start 12/18/21 at 17:30 Morphine Sulfate (Morphine Sulfate) 2 mg PRN Q1HR PRN IV PAIN; Start 12/18/21 at 17:30 Acetaminophen (Tylenol) 650 mg PRN Q6HRS PRN PO Headaches, Temp > 101.5F; Start 12/18/21 at 17:30 Magnesium Hydroxide (Milk Of Magnesia) 2,400 mg PRN Q12HR PRN PO CONSTIPATION; Start 12/18/21 at 17:30 Heparin Sodium (Porcine) (Heparin Sodium) 5,000 unit Q12HR SQ Last administered on 12/22/21 08:30; Start 12/18/21 at 21:00 Insulin Glargine (Lantus Syringe) 20 unit QHS SQ Last administered on 12/19/21 21:44; Start 12/18/21 at 21:00; Stop 12/20/21 at 11:32; Status DC Insulin Human Lispro (HumaLOG) 0-9 UNITS TIDWMEALS SQ Last administered on 12/22/21 08:30; Start 12/19/21 at 08:00 Dextrose (Dextrose 50%-Water Syringe) 12.5 gm PRN Q15MIN PRN IV SEE COMMENTS; Start 12/18/21 at 17:45 Dextrose (Iv Dextrose 5%) 250 ml PRN Q15MIN PRN IV SEE COMMENTS; Start 12/18/21 at 17:45 Lactobacillus Rhamnosus (Culturelle) 1 cap BID PO Last administered on 12/22/21 08:26; Start 12/19/21 at 21:00 Insulin Glargine (Lantus Syringe) 30 unit QHS SQ Last administered on 12/20/21 21:33; Start 12/20/21 at 21:00 Insulin Human Lispro (HumaLOG) 10 units TIDAC SQ Last administered on 12/21/21 16:30; Start 12/20/21 at 11:30 Amlodipine Besylate (Norvasc) 10 mg DAILY PO Last administered on 12/22/21 08:26; Start 12/21/21 at 18:00 Aspirin (Aspirin Chewable) 81 mg DAILY PO Last administered on 12/22/21 08:27; Start 12/21/21 at 18:00 Atenolol (Tenormin) 25 mg DAILY PO Last administered on 12/22/21 08:26; Start 12/21/21 at 18:00 Atorvastatin Calcium (Lipitor) 40 mg QHS PO Last administered on 12/21/21at 21:26; Start 12/21/21 at 21:00 Perflutren Protein Type A Microsphe (Optison) 0.66 mg 1X ONCE IV ; Start 12/22/21 at 07:00; Stop 12/22/21 at 07:01; Status DC Active Scripts Active Doxycycline Hyclate 100 Mg Capsule 1 Cap PO BID 10 Days Reported Children's Aspirin (Aspirin) 81 Mg Tab.chew 1 Tab PO DAILY 30 Days Tradjenta (Linagliptin) 5 Mg Tablet 5 Mg PO DAILY Glipizide 10 Mg Tablet 1 Tab PO BID Metformin Hcl 1,000 Mg Tablet 1,000 Mg PO BIDWMEALS Atenolol 25 Mg Tablet 1 Tab PO DAILY Amlodipine Besylate 10 Mg Tablet 10 Mg PO DAILY Vitals/I & O Vital Sign - Last 24 Hours 12/21/21 12/21/21 12/21/21 12/21/21 11:00 15:00 17:08 17:09 Temp 98.6 98.5 98.6 98.5 Pulse 92 101 101 101 Resp 18 B/P (MAP) 165/72 (103) 152/69 (96) 165/72 165/72 Pulse Ox 95 98 O2 Delivery Room Air Room Air 12/21/21 12/21/21 12/21/21 12/22/21 19:49 20:00 23:05 03:12 Temp 98.9 97.4 97.5 98.9 97.4 97.5 Pulse 79 73 79 Resp 20 18 20 B/P (MAP) 171/76 (107) 172/86 (114) 182/79 (113) Pulse Ox 98 97 99 O2 Delivery Room Air Room Air Room Air Room Air 12/22/21 12/22/21 12/22/21 12/22/21 04:13 07:00 08:26 08:26 Temp 98.9 98.9 Pulse 76 80 80 80 Resp 19 B/P (MAP) 182/82 146/66 (92) 146/66 146/66 Pulse Ox 96 O2 Delivery Room Air Intake and Output 12/21/21 12/21/21 12/22/21 15:00 23:00 07:00 Intake Total 100 ml 50 ml 200 ml Output Total 500 ml 500 ml 350 ml Balance -400 ml -450 ml -150 ml Images MRI BRAIN WO Date: 12/21/2021 2:39 PM Indication: seizures Comparison: CT 12/18/2021. Technique: Multiplanar multisequence MRI of the brain was performed without intravenous contrast using the standard protocol. Findings: Motion artifact degrades image quality. No acute infarct. No acute or chronic hemorrhage. The ventricles are normal in size and configuration without hydrocephalus. Mild scattered FLAIR hyperintensities in the subcortical and periventricular deep white matter, a nonspecific finding, most commonly seen with chronic small vessel ischemic disease. The scalp and calvarium are normal. The pituitary and sella are normal. No Chiari malformation. The visualized upper cervical spine is normal. The visualized orbits and globes are normal. The visualized paranasal sinuses are clear. The mastoid air cells are clear. Normal flow voids within the vertebral, basilar, and internal carotid arteries indicating patency. IMPRESSION: 1. No acute infarct, hemorrhage, mass, or hydrocephalus. 2. Mild chronic small vessel ischemic disease. Justicifation of Admission Dx: Justifications for Admission: Justification of Admission Dx: N/A AMY WATTS MD Dec 22, 2021 08:51
--- NOTE | 2021-12-22 09:38 | PDOC ---
PROGRESS NOTES Date of Service: DATE: 12/22/21 TIME: 09:35 Subjective Subjective feels good Objective Objective Vital Signs Date Time Temp Pulse Resp B/P (MAP) Pulse Ox O2 Delivery O2 Flow Rate FiO2 12/22/21 08:26 80 146/66 12/22/21 08:10 Room Air 12/22/21 07:00 98.9 19 96 98.9 Intake and Output 12/22/21 07:00 Intake Total 350 ml Output Total 1350 ml Balance -1000 ml Intake Oral 350 ml Output Urine Total 1350 ml Physical Exam Abdomen: Soft, No tenderness Heart: Regular rate Extremities: No edema General: Alert, Cooperative, No acute distress HEENT: Atraumatic Lungs: Clear to auscultation, Other (diminished bases) MUSCULOSKELETAL: Osteoarthritic changes both hands Neuro: Normal speech, Sensation intact Psych/Mental Status: Mood NL Skin: No significant lesion Diagnosis Problem List Problems Medical Problems: (1) Altered mental status Status: Acute (2) Hyperglycemia Status: Acute (3) Lactic acidosis Status: Acute (4) Renal failure Status: Acute Assessment Assessment Problems Medical Problems: (1) Altered mental status Status: Acute (2) Hyperglycemia Status: Acute (3) Lactic acidosis Status: Acute (4) Renal failure Status: Acute Chief Complaint Sepsis ?Seizure Likely aspiration pneumonia Hyperglycemia BOBBI Hypertensive urgency Plan: MRI -ve EEG -ve spoke with neurology ,no meds needed for ?seizure like activity ,metabolic cause. SNU screen CXR infitrates,will do CT chest ECHO pending BS fluctuating. social service consult. Plan Plan of Care Problems Medical Problems: (1) Altered mental status Status: Acute (2) Hyperglycemia Status: Acute (3) Lactic acidosis Status: Acute (4) Renal failure Status: Acute Comment Review of Relevant I have reviewed the following items bushra (where applicable) has been applied. Labs Laboratory Tests Test 12/21/21 11:41 12/21/21 16:59 12/21/21 20:22 12/22/21 06:30 Glucose (Fingerstick) 89 mg/dL (70-99) 109 mg/dL (70-99) 95 mg/dL (70-99) Sodium Level 141 mmol/L (136-145) Potassium Level 3.6 mmol/L (3.5-5.1) Chloride Level 107 mmol/L (98-107) Carbon Dioxide Level 22 mmol/L (21-32) Anion Gap 12 (6-14) Blood Urea Nitrogen 15 mg/dL (8-26) Creatinine 1.5 mg/dL (0.7-1.3) Estimated GFR (Cockcroft-Gault) 54.5 Glucose Level 229 mg/dL (70-99) Calcium Level 8.7 mg/dL (8.5-10.1) Test 12/22/21 07:43 Glucose (Fingerstick) 258 mg/dL (70-99) Microbiology 12/18/21 Blood Culture - Preliminary, Resulted NO GROWTH AFTER 3 DAYS Medications Current Medications Amlodipine Besylate (Norvasc) 10 mg DAILY PO Last administered on 12/22/21at 08:26; Start 12/21/21 at 18:00 Aspirin (Aspirin Chewable) 81 mg DAILY PO Last administered on 12/22/21at 08:27; Start 12/21/21 at 18:00 Atenolol (Tenormin) 25 mg DAILY PO Last administered on 12/22/21at 08:26; Start 12/21/21 at 18:00 Atorvastatin Calcium (Lipitor) 40 mg QHS PO Last administered on 12/21/21at 21:26; Start 12/21/21 at 21:00 Perflutren Protein Type A Microsphe (Optison) 0.66 mg 1X ONCE IV ; Start 12/22/21 at 07:00; Stop 12/22/21 at 07:01; Status DC Vitals/I & O Vital Sign - Last 24 Hours 12/21/21 12/21/21 12/21/21 12/21/21 11:00 15:00 17:08 17:09 Temp 98.6 98.5 98.6 98.5 Pulse 92 101 101 101 Resp 18 22 B/P (MAP) 165/72 (103) 152/69 (96) 165/72 165/72 Pulse Ox 95 98 O2 Delivery Room Air Room Air 12/21/21 12/21/21 12/21/21 12/22/21 19:49 20:00 23:05 03:12 Temp 98.9 97.4 97.5 98.9 97.4 97.5 Pulse 79 73 79 Resp 20 18 20 B/P (MAP) 171/76 (107) 172/86 (114) 182/79 (113) Pulse Ox 98 97 99 O2 Delivery Room Air Room Air Room Air Room Air 12/22/21 12/22/21 12/22/21 12/22/21 04:13 07:00 08:10 08:26 Temp 98.9 98.9 Pulse 76 80 80 Resp 19 B/P (MAP) 182/82 146/66 (92) 146/66 Pulse Ox 96 O2 Delivery Room Air Room Air 12/22/21 08:26 Pulse 80 B/P (MAP) 146/66 Intake and Output 12/21/21 12/21/21 12/22/21 15:00 23:00 07:00 Intake Total 100 ml 50 ml 200 ml Output Total 500 ml 500 ml 350 ml Balance -400 ml -450 ml -150 ml Justifications for Admission Other Justification SHABBIR WEBSTER MD Dec 22, 2021 09:38
--- NOTE | 2021-12-22 09:54 | PDOC ---
CARDIO Progress Notes Date and Time Date of Service 12/22/21 Time of Evaluation 1115 Subjective Subjective: No Chest Pain, No shortness of breath, No Palpitations, No Dizziness Vitals Vitals Vital Signs Date Time Temp Pulse Resp B/P (MAP) Pulse Ox O2 Delivery O2 Flow Rate FiO2 12/22/21 08:26 80 146/66 12/22/21 08:10 Room Air 12/22/21 07:00 98.9 19 96 98.9 Weight Weight [ ] Input and Output Intake and Output Intake and Output 12/22/21 07:00 Intake Total 350 ml Output Total 1350 ml Balance -1000 ml Intake Oral 350 ml Output Urine Total 1350 ml Laboratory Labs Laboratory Tests Test 12/21/21 11:41 12/21/21 16:59 12/21/21 20:22 12/22/21 06:30 Glucose (Fingerstick) 89 mg/dL (70-99) 109 mg/dL (70-99) 95 mg/dL (70-99) Sodium Level 141 mmol/L (136-145) Potassium Level 3.6 mmol/L (3.5-5.1) Chloride Level 107 mmol/L (98-107) Carbon Dioxide Level 22 mmol/L (21-32) Anion Gap 12 (6-14) Blood Urea Nitrogen 15 mg/dL (8-26) Creatinine 1.5 mg/dL (0.7-1.3) Estimated GFR (Cockcroft-Gault) 54.5 Glucose Level 229 mg/dL (70-99) Calcium Level 8.7 mg/dL (8.5-10.1) Test 12/22/21 07:43 Glucose (Fingerstick) 258 mg/dL (70-99) Microbiology Micro Microbiology 12/18/21 Blood Culture - Preliminary, Resulted NO GROWTH AFTER 3 DAYS Physical Exam HEENT: Neck Supple W Full Motion Chest: Symmetric LUNGS: Other (diminished bases) Heart: RRR Abdomen: Soft N/T Extremities: No Edema Neurology: alert, oriented, follow commands Assessment Assessment 1. Seizure-like activity; CT head and MRI without acute findings. EEG negative. as per neurology 2. Hypertensive urgency; improved 3. CAD s/p remote PCI/stent to the RCA. Follows with [facility]. Echo with preserved LV systolic function 4. Probable aspiration PNA; as per IM 5. Hyperlipidemia 6. Diabetes, II with significant hyperglycemia. BG > 800 upon arrival. A1C 14.1. as per IM 7. BOBBI on CKD; improved 8. Lactic acidosis; better 9. Arrhythmia; tele noted with very brief bursts of probable AFIB. Otherwise, is SR Recommendations ASA, satin Secondary prevention Outpatient ischemic evaluation if none recently. Would recommend outpatient event monitor. Will defer to primary strategic advisor. Supportive care Justicifation of Admission Dx: Justifications for Admission: Justification of Admission Dx: N/A CINDA ORDAZ APRN Dec 22, 2021 09:54
[2021-12-22 11:00] VITALS: BP 142/64
--- NOTE | 2021-12-22 13:14 | CARD ---
MR#: [id number] Date of Study: 12/22/2021 Ordering Physician: SHABBIR WEBSTER, Referring Physician: SHABBIR WEBSTER, Tech: Keisha Giles [facility] APPROVED REPORT EXAM: Two-dimensional and M-mode echocardiogram with Doppler and color Doppler. Other Information Quality : AverageHR: 87bpm Rhythm : NSR INDICATION Cardiac Disease: CAD RISK FACTORS Hypertension Hyperlipidemia Diabetes 2D DIMENSIONS RVDd3.3 (2.9-3.5cm)Left Atrium(2D)3.5 (1.6-4.0cm) IVSd1.8 (0.7-1.1cm)Aortic Root(2D)3.2 (2.0-3.7cm) LVDd3.4 (3.9-5.9cm)LVOT Diameter2.0 (1.8-2.4cm) PWd1.5 (0.7-1.1cm)LVDs2.1 (2.5-4.0cm) FS (%) 39.7 %SV34.1 ml LVEF(%)71.4 (>50%) Aortic Valve AoV Peak Wisam.173.5cm/sAoV VTI32.7cm AO Peak GR.12.0mmHgLVOT Peak Wisam.121.5cm/s AO Mean GR.6mmHgAVA (VMAX)2.17cm2 Mitral Valve MV E Mkdhgiff49.1cm/s Pulmonary Valve PV Peak Zozikgdw790.9cm/s Tricuspid Valve TR P. [id number]/sTR Peak Gr.27mmHg LEFT VENTRICLE The left ventricle is normal size. There is moderate concentric left ventricular hypertrophy. The lef t ventricular systolic function is normal. Estimated ejection fraction 60-65%. There is normal LV se gmental wall motion. Transmitral Doppler flow pattern is Grade I-abnormal relaxation pattern. RIGHT VENTRICLE The right ventricle is normal size. The right ventricle is mildly hypertrophied. The right ventricula r systolic function is normal. ATRIA The left atrium size is normal. The right atrium size is normal. The interatrial septum is intact wit h no evidence for an atrial septal defect or patent foramen ovale as noted on 2-D or Doppler imaging. AORTIC VALVE The aortic valve is mildly calcified. Doppler and Color Flow revealed no significant aortic regurgita tion. There is no significant aortic valvular stenosis. MITRAL VALVE The mitral valve is thickened but opens well. There is no evidence of mitral valve prolapse. There is no mitral valve stenosis. Doppler and Color-flow revealed trace mitral regurgitation. TRICUSPID VALVE The tricuspid valve is normal in structure and function. Doppler and Color Flow revealed trace tricus pid regurgitation. Estimated PAP 30-32 mmHg. There is no tricuspid valve stenosis. PULMONIC VALVE Doppler and Color Flow revealed no pulmonic valvular regurgitation. GREAT VESSELS The aortic root is normal in size. The ascending aorta is normal in size. The IVC is normal in size a nd collapses >50% with inspiration. PERICARDIAL EFFUSION There is no evidence of significant pericardial effusion. Critical Notification Critical Value: No <Conclusion> The left ventricular systolic function is normal. Estimated ejection fraction 60-65%. There is normal LV segmental wall motion. Trace mitral regurgitation. Trace tricuspid regurgitation. Estimated PAP 30-32 mmHg. There is no evidence of significant pericardial effusion. Signed by : Saw Clark, Electronically Approved : 12/22/2021 13:14:08
--- NOTE | 2021-12-22 13:24 | NUR ---
SS following for discharge planning. SS reviewed pt chart and discussed with pt RN. Pt is from home and is currently on room air. PT/OT recommended fpc unit. COVID19 PCR test pending for placement. Pt on IV Cefepime. SS met with pt and discussed discharge planning and fpc unit. Pt agreeable to fpc unit and requested referral to [facility], ; fax [phone]. Referral phoned and faxed as requested. SS will continue to follow for discharge planning.
--- NOTE | 2021-12-22 13:27 | PDOC ---
DATE OF SERVICE DATE: 12/22/21 TIME: 13:27 SUBJECTIVE ROS Denies N/V . No SOB , No complaints OBJECTIVE Vital Signs Vital Signs Date Time Temp Pulse Resp B/P (MAP) Pulse Ox O2 Delivery O2 Flow Rate FiO2 12/22/21 11:00 98.1 77 19 142/64 (90) 97 Room Air 98.1 I & 0 Intake and Output 12/22/21 07:00 Intake Total 350 ml Output Total 1350 ml Balance -1000 ml Intake Oral 350 ml Output Urine Total 1350 ml PHYSICAL EXAM Physical Exam General: No acute distress HEENT: PERRLA, EOMI Lungs: Bibasilar crackles, Normal air movement Heart: RRR, no murmurs Cardiovascular: S1, S2 Abdomen: Normal bowel sounds, Soft, No tenderness Extremities: No clubbing, No cyanosis Skin: No rashes, No significant lesion Neuro: AxO, grossly normal Psych/Mental Status: Cooperative DIAGNOSIS/ASSESSMENT Assessment & Plan BOBBI - Vasomotor , Creatinine trending down , UOP not recorded accurately , per RN Good UOP. Baseline unknown to me UA was ordered in ER, , dw RN on 10/23 , but never done . Supportive care, maintain Hydration/Fluid balance , avoid Nephrotoxins. HyperNatremia- resolved Abnormal CxR - CT scan chest- Small patchy peribronchial groundglass opacities in the right upper lobe, likely infectious/inflammatory. Severe calcified coronary atherosclerosis. A 12.9 cm fat density mass with multiple thin internal septations seen within the subcutaneous tissue of the posterior midline chest wall. Findings suggesting of a lipoma. Low-grade liposarcoma cannot be excluded. Clinical correlation is advised. Seizures -per Neurology /PCP Sepsis Dx per primary Likely aspiration pneumonia Hypertensive urgency POA - antihypertensives COMMENT/RELEVANT DATA Meds Current Medications Medications (Trade) Dose Ordered Sig/Jacqui Start Time Stop Time Status Last Admin Dose Admin Acetaminophen (Tylenol) 650 mg PRN Q6HRS PRN 12/18/21 17:30 Al Hydroxide/Mg Hydroxide (Mylanta Plus Xs) 30 ml PRN Q3HRS PRN 12/18/21 17:30 Amlodipine Besylate (Norvasc) 10 mg DAILY 12/21/21 18:00 12/22/21 08:26 10 MG Aspirin (Aspirin Chewable) 81 mg DAILY 12/21/21 18:00 12/22/21 08:27 81 MG Atenolol (Tenormin) 25 mg DAILY 12/21/21 18:00 12/22/21 08:26 25 MG Atorvastatin Calcium (Lipitor) 40 mg QHS 12/21/21 21:00 12/21/21 21:26 40 MG Calcium Carbonate/ Glycine (Tums) 500 mg PRN Q3HRS PRN 12/18/21 17:30 Cefepime HCl (Maxipime) 2 gm Q24H 12/19/21 15:00 12/21/21 15:00 2 GM Dextrose (Dextrose 50%-Water Syringe) 12.5 gm PRN Q15MIN PRN 12/18/21 17:45 Dextrose (Iv Dextrose 5%) 250 ml PRN Q15MIN PRN 12/18/21 17:45 Heparin Sodium (Porcine) (Heparin Sodium) 5,000 unit Q12HR 12/18/21 21:00 12/22/21 08:30 5,000 UNIT Hydralazine HCl (Apresoline Inj) 10 mg PRN Q4HRS PRN 12/18/21 15:45 12/22/21 04:13 10 MG Insulin Glargine (Lantus Syringe) 30 unit QHS 12/20/21 21:00 12/20/21 21:33 30 UNIT Insulin Human Lispro (HumaLOG) 10 units TIDAC 12/20/21 11:30 12/22/21 11:59 4 UNITS Lactobacillus Rhamnosus (Culturelle) 1 cap BID 12/19/21 21:00 12/22/21 08:26 1 CAP Levetiracetam 100 ml @ 400 mls/hr 1X ONCE 12/18/21 15:00 12/18/21 15:14 DC 12/18/21 15:29 400 MLS/HR Lorazepam (Ativan Inj) 2 mg PRN Q4HRS PRN 12/18/21 17:30 Magnesium Hydroxide (Milk Of Magnesia) 2,400 mg PRN Q12HR PRN 12/18/21 17:30 Morphine Sulfate (Morphine Sulfate) 2 mg PRN Q1HR PRN 12/18/21 17:30 Ondansetron HCl (Zofran) 4 mg PRN Q6HRS PRN 12/18/21 17:30 Perflutren Protein Type A Microsphe (Optison) 0.66 mg 1X ONCE 12/22/21 07:00 12/22/21 07:01 DC Sodium Chloride 1,000 ml @ 100 mls/hr Q10H 12/18/21 17:30 12/19/21 14:54 DC 12/19/21 04:34 100 MLS/HR Lab Laboratory Tests Test 12/21/21 16:59 12/21/21 20:22 12/22/21 06:30 12/22/21 07:43 Glucose (Fingerstick) 109 mg/dL (70-99) 95 mg/dL (70-99) 258 mg/dL (70-99) Sodium Level 141 mmol/L (136-145) Potassium Level 3.6 mmol/L (3.5-5.1) Chloride Level 107 mmol/L (98-107) Carbon Dioxide Level 22 mmol/L (21-32) Anion Gap 12 (6-14) Blood Urea Nitrogen 15 mg/dL (8-26) Creatinine 1.5 mg/dL (0.7-1.3) Estimated GFR (Cockcroft-Gault) 54.5 Glucose Level 229 mg/dL (70-99) Calcium Level 8.7 mg/dL (8.5-10.1) Test 12/22/21 11:50 Glucose (Fingerstick) 147 mg/dL (70-99) Results All relevant outside records, renal labs, imaging studies, telemetry/EKG's were reviewed. Justicifation of Admission Dx: Justifications for Admission: Justification of Admission Dx: N/A RENATA SANDERS MD Dec 22, 2021 13:27
--- NOTE | 2021-12-22 14:03 | RAD ---
EXAMINATION: CT Chest Without IV contrast. INDICATION:81 years, Male, lung infiltrates. Follow-up exam. COMPARISON: Chest radiograph dated 01/06/2022. TECHNIQUE: Spiral CT was obtained from the jugular notch through the posterior costophrenic recess. S agittal and coronal reformats were obtained. Exposure: One or more of the following individualized dose reduction techniques were utilized for thi s examination: 1. Automated exposure control 2. Adjustment of the mA and/or kV according to patient size 3. Use of iterative reconstruction technique. FINDINGS: LUNGS/PLEURA: Central airways are patent. Mild centrilobular and paraseptal pulmonary emphysema. Patc hy peribronchial groundglass opacities in the right upper lobe. Linear scarring versus atelectatic ch anges in the lingula. No focal consolidation, pleural effusion or pneumothorax. No suspicious pulmona ry nodule. Calcified granuloma in the right lower lobe. MEDIASTINUM: No pathologic mediastinal or hilar adenopathy. The thoracic aorta and pulmonary arteries are normal in caliber. The heart is normal in size. No pericardial effusion. Severe calcified carrion ry atherosclerosis. The visualized thyroid and the esophagus are unremarkable. AXILLA/SOFT TISSUE: No supraclavicular or axillary adenopathy. 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 UPPER ABDOMEN: The visualized upper abdomen appears unremarkable, within limitation of noncontrast ex am. BONES: No evidence of acute fractures or aggressive osseous lesions. Multilevel degenerative changes in the spine. IMPRESSION: 1. Small patchy peribronchial groundglass opacities in the right upper lobe, likely infectious/infla mmatory. 2. Severe calcified coronary atherosclerosis. 3. A 12.9 cm fat density mass with multiple thin internal septations seen within the subcutaneous ti ssue of the posterior midline chest wall. Findings suggesting of a lipoma. Low-grade liposarcoma august ot be excluded. Clinical correlation is advised. Electronically signed by: Eitan Viera MD (12/22/2021 2:01 PM) [facility]
[2021-12-22] MEDS: CEFEPIME HCL IV Push 2 GM VIAL. IVP SCH (14:59)
[2021-12-22 15:00] VITALS: BP 141/62
[2021-12-22 19:00] VITALS: BP 145/60
[2021-12-22 19:10] LABS: ALBUM 2.6 g/dL (2.9-4.4); ALPHA 1 0.2 g/dL (0.0-0.4); ALPHA 2 0.9 g/dL (0.4-1.0); ANA INTERP Positive (.); BETA 0.8 g/dL (0.7-1.3); GAMMA 1.3 g/dL (0.4-1.8); PROTEIN TOTAL 5.8 g/dL (6.0-8.5); SPEP AG RATIO 0.8 (0.7-1.7)
[2021-12-22] MEDS: ATORVASTATIN CALCIUM 40 MG TABLET. PO SCH (21:02)
[2021-12-22] MEDS: INSULIN GLARGINE SYRINGE. SQ SCH (21:08)
[2021-12-22 23:01] VITALS: BP 145/71
[2021-12-23 03:22] VITALS: BP 141/67
[2021-12-23 07:00] VITALS: BP 129/59
[2021-12-23] MEDS: INSULIN LISPRO 300 UNITS/3 ML VIAL. SQ SCH ×6 (07:30→17:00)
[2021-12-23] MEDS: ATENOLOL 25 MG TABLET. PO SCH (08:28)
[2021-12-23] MEDS: LACTOBACILLUS RHAMNOSUS GG 1 CAPSULE. PO SCH ×2 (08:28→21:03)
[2021-12-23] MEDS: ASPIRIN CHEWABLE 81 MG TABLET. PO SCH (08:28)
[2021-12-23] MEDS: HEPARIN for SUB-Q USE 5,000 UNIT/ML VIAL. SQ SCH ×2 (08:33→21:09)
--- NOTE | 2021-12-23 09:08 | PDOC ---
PROGRESS NOTES Date of Service: DATE: 12/23/21 TIME: 09:06 Subjective Subjective feels good,no concerns Objective Objective Vital Signs Date Time Temp Pulse Resp B/P (MAP) Pulse Ox O2 Delivery O2 Flow Rate FiO2 12/23/21 08:28 76 129/59 12/23/21 07:00 98.2 18 99 Room Air 98.2 Intake and Output 12/23/21 07:00 Intake Total 120 ml Output Total 300 ml Balance -180 ml Intake Oral 120 ml Output Urine Total 300 ml # Voids 1 Physical Exam Abdomen: Soft, No tenderness Heart: Regular rate Extremities: No edema General: Alert, Cooperative, No acute distress HEENT: Atraumatic Lungs: Clear to auscultation, Other (diminished bases) MUSCULOSKELETAL: Osteoarthritic changes both hands Neuro: Normal speech, Sensation intact Psych/Mental Status: Mood NL Skin: No significant lesion Diagnosis Problem List Problems Medical Problems: (1) Altered mental status Status: Acute (2) Hyperglycemia Status: Acute (3) Lactic acidosis Status: Acute (4) Renal failure Status: Acute Assessment Assessment Problems Medical Problems: (1) Altered mental status Status: Acute (2) Hyperglycemia Status: Acute (3) Lactic acidosis Status: Acute (4) Renal failure Status: Acute Chief Complaint Sepsis ?Seizure Likely aspiration pneumonia Hyperglycemia BOBBI Hypertensive urgency Plan:SNU today MRI -ve EEG -ve spoke with neurology ,no meds needed for ?seizure like activity ,metabolic cause. oral antibiotics RAYMOND 1;80, rheumatology referral out pt CT chest- emphysema mild infiltrates ,no tumors ECHO good LVF BS fluctuating.200 range social service consult. No driving for 6 months Plan Plan of Care Problems Medical Problems: (1) Altered mental status Status: Acute (2) Hyperglycemia Status: Acute (3) Lactic acidosis Status: Acute (4) Renal failure Status: Acute Comment Review of Relevant I have reviewed the following items bushra (where applicable) has been applied. Labs Laboratory Tests Test 12/22/21 09:43 12/22/21 11:50 12/22/21 17:03 12/22/21 19:21 Coronavirus (COVID-19)(PCR) Not detected (NOT DETECTD) Glucose (Fingerstick) 147 mg/dL (70-99) 214 mg/dL (70-99) 296 mg/dL (70-99) Test 12/23/21 07:21 Glucose (Fingerstick) 247 mg/dL (70-99) Microbiology 12/18/21 Blood Culture - Preliminary, Resulted NO GROWTH AFTER 4 DAYS Vitals/I & O Vital Sign - Last 24 Hours 12/22/21 12/22/21 12/22/21 12/22/21 11:00 15:00 19:00 20:00 Temp 98.1 98.3 98.5 98.1 98.3 98.5 Pulse 77 66 82 Resp 19 18 B/P (MAP) 142/64 (90) 141/62 (88) 145/60 (88) Pulse Ox 97 99 96 O2 Delivery Room Air Room Air Room Air Room Air 12/22/21 12/23/21 12/23/21 12/23/21 23:01 03:22 07:00 08:28 Temp 98.1 98.4 98.2 98.1 98.4 98.2 Pulse 73 82 76 76 Resp 18 18 18 B/P (MAP) 145/71 (95) 141/67 (91) 129/59 (82) 129/59 Pulse Ox 95 96 99 O2 Delivery Room Air Room Air Room Air 12/23/21 08:28 Pulse 76 B/P (MAP) 129/59 Intake and Output 12/22/21 12/22/21 12/23/21 15:00 23:00 07:00 Intake Total 120 ml Output Total 300 ml Balance -180 ml Justifications for Admission Other Justification SHABBIR WEBSTER MD Dec 23, 2021 09:08
[2021-12-23] MEDS ORDERED: INSU100V35 SQ (09:13)
[2021-12-23] MEDS ORDERED: INSU100V8 SQ (09:13)
[2021-12-23] MEDS ORDERED: ATOR40TA59 PO (09:13)
[2021-12-23] MEDS ORDERED: CEFD300C PO (09:14)
--- NOTE | 2021-12-23 09:17 | SNU/HH DC ---
DISCHARGE ORDERS DISCHARGE INFORMATION: DISCHARGE DATE: Dec 23, 2021 FINAL DIAGNOSIS Problems Medical Problems: (1) Altered mental status Status: Acute (2) Hyperglycemia Status: Acute (3) Lactic acidosis Status: Acute (4) Renal failure Status: Acute CONDITION ON DISCHARGE: Stable CODE STATUS: Code Status: Full RETIREMENT: SNF STAY <30 DAYS: Yes HOSPICE: HOSPICE EVAL & TREAT: No LTAC: ADMIT TO LTAC: No POST DISCHARGE ORDERS: ACTIVITY ORDERS: No restrictions WEIGHT BEARING STATUS: No restrictions DIET AFTER DISCHARGE: ADA OTHER ORDERS: needs diabetic education , how to check sugars and CHECKS AFTER DISCHARGE: CHECKS AFTER DISCHARGE: Check blood press - daily, Check blood sugar, ac/hs FOLLOW-UP: PHYSICIAN FOLLOW-UP: pcp after discharge ADDITIONAL FOLLOW-UP: neurology after discharge Additional Instructions: no driving for 6 months TREATMENT/EQUIPMENT ORDERS: Physical Therapy For: Evalulation/Treatment Occupational Therapy For: Evaluation/Treatment DISCHARGE MEDICATIONS: Home Meds Active Scripts Cefdinir (CEFDINIR) 300 Mg Capsule, 1 CAP PO BID for pneumonia for 7 Days, #14 CAP Prov:SHABBIR WEBSTER MD 12/23/21 Atorvastatin Calcium (ATORVASTATIN CALCIUM) 40 Mg Tablet, 40 MG PO QHS for chol for 30 Days, #30 TAB Prov:SHABBIR WEBSTER MD 12/23/21 Insulin Lispro (Admelog) 100 Unit/1 Ml Vial, 15 UNITS SQ TIDAC for dm for 30 Days, EACH Prov:SHABBIR WEBSTER MD 12/23/21 Insulin Glargine,Hum.rec.anlog (LANTUS) 100 Unit/1 Ml Vial, 30 UNIT SQ QHS for dm for 30 Days, EACH Prov:SHABBIR WEBSTER MD 12/23/21 Reported Medications Aspirin (Children's Aspirin) 81 Mg Tab.chew, 1 TAB PO DAILY for Heart for 30 Day s, #30 TAB 0 Refills 12/19/21 Linagliptin (Tradjenta) 5 Mg Tablet, 5 MG PO DAILY for DM, TAB 12/19/21 Atenolol (ATENOLOL) 25 Mg Tablet, 1 TAB PO DAILY for HTN, #30 TAB 5 Refills 12/19/21 Amlodipine Besylate (AMLODIPINE BESYLATE) 10 Mg Tablet, 10 MG PO DAILY for HTN, TAB 12/19/21 Discontinued Reported Medications Glipizide (GLIPIZIDE) 10 Mg Tablet, 1 TAB PO BID for DM, #60 TAB 5 Refills 12/19/21 Metformin Hcl (METFORMIN HCL) 1,000 Mg Tablet, 1000 MG PO BIDWMEALS for DM, TAB 12/19/21 Discontinued Scripts Doxycycline Hyclate (DOXYCYCLINE HYCLATE) 100 Mg Capsule, 1 CAP PO BID for 10 Days, #20 CAP 0 Refills Prov:MARJAN SETHI MD 02/12/21 SHABBIR WEBSTER MD Dec 23, 2021 09:17
--- NOTE | 2021-12-23 09:40 | PDOC ---
DATE OF SERVICE DATE: 12/23/21 TIME: 09:38 SUBJECTIVE ROS Denies N/V . No SOB , No complaints OBJECTIVE Vital Signs Vital Signs Date Time Temp Pulse Resp B/P (MAP) Pulse Ox O2 Delivery O2 Flow Rate FiO2 12/23/21 08:28 76 129/59 12/23/21 07:00 98.2 18 99 Room Air 98.2 I & 0 Intake and Output 12/23/21 07:00 Intake Total 120 ml Output Total 300 ml Balance -180 ml Intake Oral 120 ml Output Urine Total 300 ml # Voids 1 PHYSICAL EXAM Physical Exam General: No acute distress HEENT: PERRLA, EOMI Lungs: Bibasilar crackles, Normal air movement Heart: RRR, no murmurs Cardiovascular: S1, S2 Abdomen: Normal bowel sounds, Soft, No tenderness Extremities: No clubbing, No cyanosis Skin: No rashes, No significant lesion Neuro: AxO, grossly normal Psych/Mental Status: Cooperative DIAGNOSIS/ASSESSMENT Assessment & Plan BOBBI - Vasomotor , Creatinine trending down Baseline unknown to me UA was ordered dw RN on 10/23 not done . Supportive care, maintain Hydration , avoid Nephrotoxins. HyperNatremia- resolved Abnormal CxR - CT scan chest- Small patchy peribronchial groundglass opacities in the right upper lobe, likely infectious/inflammatory. Severe calcified coronary atherosclerosis. A 12.9 cm fat density mass with multiple thin internal septations seen within the subcutaneous tissue of the posterior midline chest wall. Findings suggesting of a lipoma. Low-grade liposarcoma cannot be excluded. Clinical correlation is advised. Seizures -per Neurology /PCP Sepsis Dx per primary Likely aspiration pneumonia Hypertensive urgency POA - antihypertensives Awaiting dc to SNU COMMENT/RELEVANT DATA Meds Current Medications Medications (Trade) Dose Ordered Sig/Jacqui Start Time Stop Time Status Last Admin Dose Admin Acetaminophen (Tylenol) 650 mg PRN Q6HRS PRN 12/18/21 17:30 Al Hydroxide/Mg Hydroxide (Mylanta Plus Xs) 30 ml PRN Q3HRS PRN 12/18/21 17:30 Amlodipine Besylate (Norvasc) 10 mg DAILY 12/21/21 18:00 12/23/21 08:28 10 MG Aspirin (Aspirin Chewable) 81 mg DAILY 12/21/21 18:00 12/23/21 08:28 81 MG Atenolol (Tenormin) 25 mg DAILY 12/21/21 18:00 12/23/21 08:28 25 MG Atorvastatin Calcium (Lipitor) 40 mg QHS 12/21/21 21:00 12/22/21 21:02 40 MG Calcium Carbonate/ Glycine (Tums) 500 mg PRN Q3HRS PRN 12/18/21 17:30 12/23/21 09:19 DC Cefdinir (Omnicef) 300 mg BID 12/23/21 10:00 Cefepime HCl (Maxipime) 2 gm Q24H 12/19/21 15:00 12/23/21 09:19 DC 12/22/21 14:59 2 GM Dextrose (Dextrose 50%-Water Syringe) 12.5 gm PRN Q15MIN PRN 12/18/21 17:45 Dextrose (Iv Dextrose 5%) 250 ml PRN Q15MIN PRN 12/18/21 17:45 Heparin Sodium (Porcine) (Heparin Sodium) 5,000 unit Q12HR 12/18/21 21:00 12/23/21 08:33 5,000 UNIT Hydralazine HCl (Apresoline Inj) 10 mg PRN Q4HRS PRN 12/18/21 15:45 12/22/21 04:13 10 MG Insulin Glargine (Lantus Syringe) 30 unit QHS 12/20/21 21:00 12/22/21 21:08 30 UNIT Insulin Human Lispro (HumaLOG) 15 units TIDAC 12/23/21 11:30 Lactobacillus Rhamnosus (Culturelle) 1 cap BID 12/19/21 21:00 12/23/21 08:28 1 CAP Levetiracetam 100 ml @ 400 mls/hr 1X ONCE 12/18/21 15:00 12/18/21 15:14 DC 12/18/21 15:29 400 MLS/HR Lorazepam (Ativan Inj) 2 mg PRN Q4HRS PRN 12/18/21 17:30 Magnesium Hydroxide (Milk Of Magnesia) 2,400 mg PRN Q12HR PRN 12/18/21 17:30 Morphine Sulfate (Morphine Sulfate) 2 mg PRN Q1HR PRN 12/18/21 17:30 Ondansetron HCl (Zofran) 4 mg PRN Q6HRS PRN 12/18/21 17:30 Perflutren Protein Type A Microsphe (Optison) 0.66 mg 1X ONCE 12/22/21 07:00 12/22/21 07:01 DC Sodium Chloride 1,000 ml @ 100 mls/hr Q10H 12/18/21 17:30 12/19/21 14:54 DC 12/19/21 04:34 100 MLS/HR Lab Laboratory Tests Test 12/22/21 09:43 12/22/21 11:50 12/22/21 17:03 12/22/21 19:21 Coronavirus (COVID-19)(PCR) Not detected (NOT DETECTD) Glucose (Fingerstick) 147 mg/dL (70-99) 214 mg/dL (70-99) 296 mg/dL (70-99) Test 12/23/21 07:21 Glucose (Fingerstick) 247 mg/dL (70-99) Results All relevant outside records, renal labs, imaging studies, telemetry/EKG's were reviewed. Justicifation of Admission Dx: Justifications for Admission: Justification of Admission Dx: N/A RENATA SANDERS MD Dec 23, 2021 09:40
--- NOTE | 2021-12-23 09:54 | NUR ---
SS following up with discharge planning. SS reviewed pt chart and discussed with pt RN. Pt is currently on room air. COVID19 negative. PT/OT recommended intermediate unit. Pt accepted at [facility], ; fax [phone], pending insurance approval. SS will continue to follow for discharge planning.
[2021-12-23] MEDS: CEFDINIR 300 MG CAPSULE PO SCH ×2 (10:12→21:02)
--- NOTE | 2021-12-23 10:26 | PDOC ---
CARDIO Progress Notes Date and Time Date of Service 12/23/21 Time of Evaluation 1020 Subjective Subjective: No Chest Pain, No shortness of breath, No Palpitations, No Dizziness Vitals Vitals Vital Signs Date Time Temp Pulse Resp B/P (MAP) Pulse Ox O2 Delivery O2 Flow Rate FiO2 12/23/21 08:28 76 129/59 12/23/21 07:00 98.2 18 99 Room Air 98.2 Weight Weight [ ] Input and Output Intake and Output Intake and Output 12/23/21 07:00 Intake Total 120 ml Output Total 300 ml Balance -180 ml Intake Oral 120 ml Output Urine Total 300 ml # Voids 1 Laboratory Labs Laboratory Tests Test 12/22/21 11:50 12/22/21 17:03 12/22/21 19:21 12/23/21 07:21 Glucose (Fingerstick) 147 mg/dL (70-99) 214 mg/dL (70-99) 296 mg/dL (70-99) 247 mg/dL (70-99) Microbiology Micro Microbiology 12/18/21 Blood Culture - Preliminary, Resulted NO GROWTH AFTER 4 DAYS Physical Exam HEENT: Neck Supple W Full Motion Chest: Symmetric LUNGS: Other (diminished bases) Heart: RRR Abdomen: Soft N/T Extremities: No Edema Neurology: alert, oriented, follow commands Assessment Assessment 1. Seizure-like activity; CT head and MRI without acute findings. EEG negative. as per neurology 2. Hypertensive urgency; improved 3. CAD s/p remote PCI/stent to the RCA. Follows with MAC. Echo with preserved LV systolic function 4. Probable aspiration PNA; as per IM 5. Hyperlipidemia 6. Diabetes, II with significant hyperglycemia. BG > 800 upon arrival. A1C 14.1. as per IM 7. BOBBI on CKD; improved 8. Lactic acidosis; better 9. Arrhythmia; tele noted with very brief bursts of probable AFIB. Otherwise, is SR Recommendations ASA, satin Secondary prevention Outpatient ischemic evaluation if none recently. Would recommend outpatient event monitor. Will defer to primary thread spinner. Supportive care Justicifation of Admission Dx: Justifications for Admission: Justification of Admission Dx: N/A CINDA ORDAZ APRN Dec 23, 2021 10:26
--- NOTE | 2021-12-23 10:28 | PDOC ---
PROGRESS NOTES Date of Service DATE: 12/23/21 TIME: 10:26 Assessment Problems Medical Problems: (1) Altered mental status Status: Acute (2) Hyperglycemia Status: Acute (3) Lactic acidosis Status: Acute (4) Renal failure Status: Acute Seizures with multiple metabolic issues including sepsis, aspiration pneumonia, acute kidney injury, hypertensive urgency, hyperglycemia. His renal parameters have already responded to hydration MRI of the brain and electroencephalogram are negative Possible chronic dementia or intellectual disability Evidence of diabetic neuropathy, labs for other causes reviewed, note markedly elevated hemoglobin A1c, 14.1 RAYMOND 1:80 Plan Hold on anticonvulsants given the fact the seizures have obvious metabolic provocations and EEG and MRI are negative Seizure precautions Treat medical issues. Needs SNU placement No driving until 6 months without a seizure Discussed with Dr. Jamison regarding the RAYMOND, he will pursue outpatient rheumatologic evaluation Subjective No complaints Objective Vital Signs Date Time Temp Pulse Resp B/P (MAP) Pulse Ox O2 Delivery O2 Flow Rate FiO2 12/23/21 08:28 76 129/59 12/23/21 07:00 98.2 18 99 Room Air 98.2 Intake and Output 12/23/21 07:00 Intake Total 120 ml Output Total 300 ml Balance -180 ml Intake Oral 120 ml Output Urine Total 300 ml # Voids 1 PHYSICAL EXAM Alert. Does not know the date or the name of the hospital, follows commands [facility]. EOMI. CN: no focal findings. Muscle tone: normal. Muscle strength: 4/5 DTR: 1+ Plantar reflex: Flexor Gait: not examined in bed. Sensory exam: Stocking loss. No cerebellar signs elicited. Review of Relevant I have reviewed the following items bushra (where applicable) has been applied. Labs Laboratory Tests Test 12/21/21 11:41 12/21/21 16:59 12/21/21 20:22 12/22/21 06:30 Glucose (Fingerstick) 89 mg/dL (70-99) 109 mg/dL (70-99) 95 mg/dL (70-99) Sodium Level 141 mmol/L (136-145) Potassium Level 3.6 mmol/L (3.5-5.1) Chloride Level 107 mmol/L (98-107) Carbon Dioxide Level 22 mmol/L (21-32) Anion Gap 12 (6-14) Blood Urea Nitrogen 15 mg/dL (8-26) Creatinine 1.5 mg/dL (0.7-1.3) Estimated GFR (Cockcroft-Gault) 54.5 Glucose Level 229 mg/dL (70-99) Calcium Level 8.7 mg/dL (8.5-10.1) Test 12/22/21 07:43 12/22/21 09:43 12/22/21 11:50 12/22/21 17:03 Glucose (Fingerstick) 258 mg/dL (70-99) 147 mg/dL (70-99) 214 mg/dL (70-99) Coronavirus (COVID-19)(PCR) Not detected (NOT DETECTD) Test 12/22/21 19:21 12/23/21 07:21 Glucose (Fingerstick) 296 mg/dL (70-99) 247 mg/dL (70-99) Laboratory Tests Test 12/22/21 11:50 12/22/21 17:03 12/22/21 19:21 12/23/21 07:21 Glucose (Fingerstick) 147 mg/dL (70-99) 214 mg/dL (70-99) 296 mg/dL (70-99) 247 mg/dL (70-99) Microbiology 12/18/21 Blood Culture - Preliminary, Resulted NO GROWTH AFTER 4 DAYS Medications Current Medications Lorazepam (Ativan Inj) 2 mg STK-MED ONCE .ROUTE ; Start 12/18/21 at 13:45; Stop 12/18/21 at 13:45; Status DC Sodium Chloride 1,000 ml @ 1,000 mls/hr 1X ONCE IV Last administered on 12/18/21at 14:00; Start 12/18/21 at 14:00; Stop 12/18/21 at 14:59; Status DC Lorazepam (Ativan Inj) 1 mg 1X ONCE IVP Last administered on 12/18/21at 13:46; Start 12/18/21 at 14:15; Stop 12/18/21 at 14:16; Status DC Sodium Chloride 1,000 ml @ 1,000 mls/hr 1X ONCE IV Last administered on 12/18/21at 14:34; Start 12/18/21 at 14:45; Stop 12/18/21 at 15:44; Status DC Levetiracetam 100 ml @ 400 mls/hr 1X ONCE IV Last administered on 12/18/21at 15:29; Start 12/18/21 at 15:00; Stop 12/18/21 at 15:14; Status DC Insulin Human Lispro (HumaLOG) 10 units 1X ONCE SQ ; Start 12/18/21 at 15:15; Stop 12/18/21 at 16:13; Status DC Cefepime HCl (Maxipime) 2 gm 1X ONCE IVP Last administered on 12/18/21at 16:10; Start 12/18/21 at 15:15; Stop 12/18/21 at 15:21; Status DC Hydralazine HCl (Apresoline Inj) 10 mg PRN Q4HRS PRN IVP HYPERTENSION Last administered on 12/22/21at 04:13; Start 12/18/21 at 15:45 Cefepime HCl (Maxipime) 2 gm Q24H IVP Last administered on 12/22/21at 14:59; Start 12/19/21 at 15:00; Stop 12/23/21 at 09:19; Status DC Sodium Chloride 1,000 ml @ 100 mls/hr Q10H IV Last administered on 12/19/21at 04:34; Start 12/18/21 at 17:30; Stop 12/19/21 at 14:54; Status DC Lorazepam (Ativan Inj) 2 mg PRN Q4HRS PRN IVP SEE COMMENTS; Start 12/18/21 at 17:30 Ondansetron HCl (Zofran) 4 mg PRN Q6HRS PRN IVP NAUSEA/VOMITING; Start 12/18/21 at 17:30 Al Hydroxide/Mg Hydroxide (Mylanta Plus Xs) 30 ml PRN Q3HRS PRN PO HEARTBURN / GAS; Start 12/18/21 at 17:30 Calcium Carbonate/ Glycine (Tums) 500 mg PRN Q3HRS PRN PO UPSET STOMACH; Start 12/18/21 at 17:30; Stop 12/23/21 at 09:19; Status DC Morphine Sulfate (Morphine Sulfate) 2 mg PRN Q1HR PRN IV PAIN; Start 12/18/21 at 17:30 Acetaminophen (Tylenol) 650 mg PRN Q6HRS PRN PO Headaches, Temp > 101.5F; Start 12/18/21 at 17:30 Magnesium Hydroxide (Milk Of Magnesia) 2,400 mg PRN Q12HR PRN PO CONSTIPATION; Start 12/18/21 at 17:30 Heparin Sodium (Porcine) (Heparin Sodium) 5,000 unit Q12HR SQ Last administered on 12/23/21 08:33; Start 12/18/21 at 21:00 Insulin Glargine (Lantus Syringe) 20 unit QHS SQ Last administered on 12/19/21at 21:44; Start 12/18/21 at 21:00; Stop 12/20/21 at 11:32; Status DC Insulin Human Lispro (HumaLOG) 0-9 UNITS TIDWMEALS SQ Last administered on 12/23/21at 08:33; Start 12/19/21 at 08:00 Dextrose (Dextrose 50%-Water Syringe) 12.5 gm PRN Q15MIN PRN IV SEE COMMENTS; Start 12/18/21 at 17:45 Dextrose (Iv Dextrose 5%) 250 ml PRN Q15MIN PRN IV SEE COMMENTS; Start 12/18/21 at 17:45 Lactobacillus Rhamnosus (Culturelle) 1 cap BID PO Last administered on 12/23/21 08:28; Start 12/19/21 at 21:00 Insulin Glargine (Lantus Syringe) 30 unit QHS SQ Last administered on 12/22/21 21:08; Start 12/20/21 at 21:00 Insulin Human Lispro (HumaLOG) 10 units TIDAC SQ Last administered on 12/22/21at 11:59; Start 12/20/21 at 11:30; Stop 12/23/21 at 09:19; Status DC Amlodipine Besylate (Norvasc) 10 mg DAILY PO Last administered on 12/23/21 08:28; Start 12/21/21 at 18:00 Aspirin (Aspirin Chewable) 81 mg DAILY PO Last administered on 12/23/21 08:28; Start 12/21/21 at 18:00 Atenolol (Tenormin) 25 mg DAILY PO Last administered on 12/23/21 08:28; Start 12/21/21 at 18:00 Atorvastatin Calcium (Lipitor) 40 mg QHS PO Last administered on 12/22/21 21:02; Start 12/21/21 at 21:00 Perflutren Protein Type A Microsphe (Optison) 0.66 mg 1X ONCE IV ; Start 12/22/21 at 07:00; Stop 12/22/21 at 07:01; Status DC Insulin Human Lispro (HumaLOG) 15 units TIDAC SQ ; Start 12/23/21 at 11:30 Cefdinir (Omnicef) 300 mg BID PO Last administered on 12/23/21at 10:12; Start 12/23/21 at 10:00 Active Scripts Active Cefdinir 300 Mg Capsule 1 Cap PO BID 7 Days Atorvastatin Calcium 40 Mg Tablet 40 Mg PO QHS 30 Days Admelog (Insulin Lispro) 100 Unit/1 Ml Vial 15 Units SQ TIDAC 30 Days Lantus (Insulin Glargine,Hum.rec.anlog) 100 Unit/1 Ml Vial 30 Unit SQ QHS 30 Days Reported Children's Aspirin (Aspirin) 81 Mg Tab.chew 1 Tab PO DAILY 30 Days Tradjenta (Linagliptin) 5 Mg Tablet 5 Mg PO DAILY Atenolol 25 Mg Tablet 1 Tab PO DAILY Amlodipine Besylate 10 Mg Tablet 10 Mg PO DAILY Vitals/I & O Vital Sign - Last 24 Hours 12/22/21 12/22/21 12/22/21 12/22/21 11:00 15:00 19:00 20:00 Temp 98.1 98.3 98.5 98.1 98.3 98.5 Pulse 77 66 82 Resp 19 18 B/P (MAP) 142/64 (90) 141/62 (88) 145/60 (88) Pulse Ox 97 99 96 O2 Delivery Room Air Room Air Room Air Room Air 12/22/21 12/23/21 12/23/21 12/23/21 23:01 03:22 07:00 08:28 Temp 98.1 98.4 98.2 98.1 98.4 98.2 Pulse 73 82 76 76 Resp 18 18 18 B/P (MAP) 145/71 (95) 141/67 (91) 129/59 (82) 129/59 Pulse Ox 95 96 99 O2 Delivery Room Air Room Air Room Air 12/23/21 08:28 Pulse 76 B/P (MAP) 129/59 Intake and Output 12/22/21 12/22/21 12/23/21 15:00 23:00 07:00 Intake Total 120 ml Output Total 300 ml Balance -180 ml Justicifation of Admission Dx: Justifications for Admission: Justification of Admission Dx: N/A AMY WATTS MD Dec 23, 2021 10:28
[2021-12-23 10:47] VITALS: BP 120/56
[2021-12-23 11:10] LABS: BASO % 0 % (0-3); EOS # 0.1 x10^3/uL (0.0-0.7); EOS % 1 % (0-3); HEMATOCRIT 41.3 % (39.0-53.0); HEMOGLOBIN 12.4 g/dL (13.0-17.5); LYMPH # 1.9 x10^3/uL (1.0-4.8); LYMPH % 26 % (24-48); MEAN CORPUSCULAR HEMOGLOBIN 30 pg (25-35); MEAN CORPUSCULAR HGB CONC 30 g/dL (31-37); MONO # 0.7 x10^3/uL (0.0-1.1); MONO % 10 % (0-9); NEUT # 4.5 x10^3/uL (1.8-7.7); NEUT % 62 % (31-73); PLATELET COUNT 153 x10^3/uL (140-400); RED BLOOD COUNT 4.18 x10^6/uL (4.30-5.70); RED CELL DISTRIBUTION WIDTH 13.3 % (11.5-14.5); WHITE BLOOD COUNT 7.2 x10^3/uL (4.0-11.0)
[2021-12-23 11:11] LABS: MEAN CORPUSCULAR VOLUME 93 fL (79-100)
[2021-12-23 15:00] VITALS: BP 90/43
[2021-12-23 19:00] VITALS: BP 158/71
[2021-12-23] MEDS: ATORVASTATIN CALCIUM 40 MG TABLET. PO SCH (21:02)
[2021-12-23] MEDS: INSULIN GLARGINE SYRINGE. SQ SCH (21:09)
[2021-12-23 23:16] VITALS: BP 159/73
[2021-12-24 03:00] VITALS: BP 119/61
[2021-12-24 07:00] VITALS: BP 137/62
[2021-12-24] MEDS: INSULIN LISPRO 300 UNITS/3 ML VIAL. SQ SCH ×4 (08:00→11:37)
[2021-12-24] MEDS: ASPIRIN CHEWABLE 81 MG TABLET. PO SCH (08:12)
[2021-12-24] MEDS: CEFDINIR 300 MG CAPSULE PO SCH (08:12)
[2021-12-24] MEDS: LACTOBACILLUS RHAMNOSUS GG 1 CAPSULE. PO SCH (08:12)
[2021-12-24] MEDS: ATENOLOL 25 MG TABLET. PO SCH (08:13)
[2021-12-24] MEDS: HEPARIN for SUB-Q USE 5,000 UNIT/ML VIAL. SQ SCH (08:18)
--- NOTE | 2021-12-24 09:25 | PDOC ---
PROGRESS NOTES Date of Service: DATE: 12/24/21 TIME: 09:24 Subjective Subjective no new problems ,waiting to going to SNU Objective Objective Vital Signs Date Time Temp Pulse Resp B/P (MAP) Pulse Ox O2 Delivery O2 Flow Rate FiO2 12/24/21 08:13 75 137/62 12/24/21 07:00 98.0 18 96 Room Air 98.0 Intake and Output 12/24/21 07:00 Intake Total 600 ml Output Total 350 ml Balance 250 ml Intake Oral 600 ml Output Urine Total 350 ml Physical Exam Abdomen: Soft, No tenderness Heart: Regular rate Extremities: No edema General: Alert, Cooperative, No acute distress HEENT: Atraumatic Lungs: Clear to auscultation, Other (diminished bases) MUSCULOSKELETAL: Osteoarthritic changes both hands Neuro: Normal speech, Sensation intact Psych/Mental Status: Mood NL Skin: No significant lesion Diagnosis Problem List Problems Medical Problems: (1) Altered mental status Status: Acute (2) Hyperglycemia Status: Acute (3) Lactic acidosis Status: Acute (4) Renal failure Status: Acute Assessment Assessment Problems Medical Problems: (1) Altered mental status Status: Acute (2) Hyperglycemia Status: Acute (3) Lactic acidosis Status: Acute (4) Renal failure Status: Acute Chief Complaint Sepsis ?Seizure Likely aspiration pneumonia Hyperglycemia BOBBI Hypertensive urgency Plan:SNU today MRI -ve EEG -ve spoke with neurology ,no meds needed for ?seizure like activity ,metabolic cause. oral antibiotics RAYMOND 1;80, rheumatology referral out pt CT chest- emphysema mild infiltrates ,no tumors ECHO good LVF BS fluctuating.70-200 range,improving social service consult. No driving for 6 months Plan Plan of Care Problems Medical Problems: (1) Altered mental status Status: Acute (2) Hyperglycemia Status: Acute (3) Lactic acidosis Status: Acute (4) Renal failure Status: Acute Comment Review of Relevant I have reviewed the following items bushra (where applicable) has been applied. Labs Laboratory Tests Test 12/23/21 10:45 12/23/21 11:23 12/23/21 16:34 12/23/21 19:30 White Blood Count 7.2 x10^3/uL (4.0-11.0) Red Blood Count 4.18 x10^6/uL (4.30-5.70) Hemoglobin 12.4 g/dL (13.0-17.5) Hematocrit 41.3 % (39.0-53.0) Mean Corpuscular Volume 93 fL (79-100) Mean Corpuscular Hemoglobin 30 pg (25-35) Mean Corpuscular Hemoglobin Concent 30 g/dL (31-37) Red Cell Distribution Width 13.3 % (11.5-14.5) Platelet Count 153 x10^3/uL (140-400) Neutrophils (%) (Auto) 62 % (31-73) Lymphocytes (%) (Auto) 26 % (24-48) Monocytes (%) (Auto) 10 % (0-9) Eosinophils (%) (Auto) 1 % (0-3) Basophils (%) (Auto) 0 % (0-3) Neutrophils # (Auto) 4.5 x10^3/uL (1.8-7.7) Lymphocytes # (Auto) 1.9 x10^3/uL (1.0-4.8) Monocytes # (Auto) 0.7 x10^3/uL (0.0-1.1) Eosinophils # (Auto) 0.1 x10^3/uL (0.0-0.7) Basophils # (Auto) 0.0 x10^3/uL (0.0-0.2) Glucose (Fingerstick) 218 mg/dL (70-99) 74 mg/dL (70-99) 196 mg/dL (70-99) Test 12/24/21 07:06 Glucose (Fingerstick) 84 mg/dL (70-99) Microbiology 12/18/21 Blood Culture - Final, Complete NO GROWTH AFTER 5 DAYS Medications Current Medications Cefdinir (Omnicef) 300 mg BID PO Last administered on 12/24/21at 08:12; Start 12/23/21 at 10:00 Insulin Human Lispro (HumaLOG) 15 units TIDAC SQ Last administered on 12/24/21at 08:19; Start 12/23/21 at 11:30 Vitals/I & O Vital Sign - Last 24 Hours 12/23/21 12/23/21 12/23/21 12/23/21 10:47 15:00 19:00 20:00 Temp 97.9 98.0 98.1 97.9 98.0 98.1 Pulse 60 60 78 Resp 18 18 18 B/P (MAP) 120/56 (77) 90/43 (59) 158/71 (100) Pulse Ox 99 98 98 O2 Delivery Room Air Room Air Room Air Room Air 12/23/21 12/24/21 12/24/21 12/24/21 23:16 03:00 07:00 08:13 Temp 97.9 97.5 98.0 97.9 97.5 98.0 Pulse 81 89 75 75 Resp 16 18 18 B/P (MAP) 159/73 (101) 119/61 (80) 137/62 (87) 137/62 Pulse Ox 97 97 96 O2 Delivery Room Air Room Air Room Air 12/24/21 08:13 Pulse 75 B/P (MAP) 137/62 Intake and Output 12/23/21 12/23/21 12/24/21 15:00 23:00 07:00 Intake Total 240 ml 360 ml Output Total 350 ml Balance 240 ml 360 ml -350 ml Justifications for Admission Other Justification SHABBIR WEBSTER MD Dec 24, 2021 09:25
--- NOTE | 2021-12-24 10:31 | NUR ---
SS following up with discharge planning. SS reviewed pt chart and discussed with pt RN. Pt is currently on room air. COVID19 negative. PT/OT recommended alf unit. Pt accepted at [facility], ; fax [phone]. Insurance authorization approved. Discharge orders received and sent to [facility]. Pt will discharge today and go to [facility] at 1130 via [facility] transport, [id number]. Pt and pt's RN notified. SS will continue to follow for discharge planning.
[2021-12-24 11:00] VITALS: BP 130/52
--- NOTE | 2021-12-24 11:05 | PDOC ---
DATE OF SERVICE DATE: 12/24/21 TIME: 11:03 SUBJECTIVE ROS Denies N/V . No SOB , No complaints States just waiting to be dced OBJECTIVE Vital Signs Vital Signs Date Time Temp Pulse Resp B/P (MAP) Pulse Ox O2 Delivery O2 Flow Rate FiO2 12/24/21 08:13 75 137/62 12/24/21 08:00 Room Air 12/24/21 07:00 98.0 18 96 98.0 I & 0 Intake and Output 12/24/21 07:00 Intake Total 600 ml Output Total 350 ml Balance 250 ml Intake Oral 600 ml Output Urine Total 350 ml PHYSICAL EXAM Physical Exam General: No acute distress HEENT: PERRLA, EOMI Lungs: Bibasilar crackles, Normal air movement Heart: RRR, no murmurs Cardiovascular: S1, S2 Abdomen: Normal bowel sounds, Soft, No tenderness Extremities: No clubbing, No cyanosis Skin: No rashes, No significant lesion Neuro: AxO, grossly normal Psych/Mental Status: Cooperative DIAGNOSIS/ASSESSMENT Assessment & Plan BOBBI - Vasomotor , Creatinine trending down Baseline unknown to me UA was ordered dw RN on 10/23 not done . Supportive care, maintain Hydration , avoid Nephrotoxins. FU with us as OP, Non urgent /Routine HyperNatremia- resolved Abnormal CxR - CT scan chest- Small patchy peribronchial groundglass opacities in the right upper lobe, likely infectious/inflammatory. Severe calcified coronary atherosclerosis. A 12.9 cm fat density mass with multiple thin internal septations seen within the subcutaneous tissue of the posterior midline chest wall. Findings suggesting of a lipoma. Low-grade liposarcoma cannot be excluded. Clinical correlation is advised. Seizures -per Neurology /PCP Sepsis Dx per primary Likely aspiration pneumonia Hypertensive urgency POA - antihypertensives Anticipating dc to PP today Awaiting dc to SNU COMMENT/RELEVANT DATA Meds Current Medications Medications (Trade) Dose Ordered Sig/Jacqui Start Time Stop Time Status Last Admin Dose Admin Acetaminophen (Tylenol) 650 mg PRN Q6HRS PRN 12/18/21 17:30 Al Hydroxide/Mg Hydroxide (Mylanta Plus Xs) 30 ml PRN Q3HRS PRN 12/18/21 17:30 Amlodipine Besylate (Norvasc) 10 mg DAILY 12/21/21 18:00 12/24/21 08:13 10 MG Aspirin (Aspirin Chewable) 81 mg DAILY 12/21/21 18:00 12/24/21 08:12 81 MG Atenolol (Tenormin) 25 mg DAILY 12/21/21 18:00 12/24/21 08:13 25 MG Atorvastatin Calcium (Lipitor) 40 mg QHS 12/21/21 21:00 12/23/21 21:02 40 MG Calcium Carbonate/ Glycine (Tums) 500 mg PRN Q3HRS PRN 12/18/21 17:30 12/23/21 09:19 DC Cefdinir (Omnicef) 300 mg BID 12/23/21 10:00 12/24/21 08:12 300 MG Cefepime HCl (Maxipime) 2 gm Q24H 12/19/21 15:00 12/23/21 09:19 DC 12/22/21 14:59 2 GM Dextrose (Dextrose 50%-Water Syringe) 12.5 gm PRN Q15MIN PRN 12/18/21 17:45 Dextrose (Iv Dextrose 5%) 250 ml PRN Q15MIN PRN 12/18/21 17:45 Heparin Sodium (Porcine) (Heparin Sodium) 5,000 unit Q12HR 12/18/21 21:00 12/24/21 08:18 5,000 UNIT Hydralazine HCl (Apresoline Inj) 10 mg PRN Q4HRS PRN 12/18/21 15:45 12/22/21 04:13 10 MG Insulin Glargine (Lantus Syringe) 30 unit QHS 12/20/21 21:00 12/23/21 21:09 30 UNIT Insulin Human Lispro (HumaLOG) 15 units TIDAC 12/23/21 11:30 12/24/21 08:19 10 UNITS Lactobacillus Rhamnosus (Culturelle) 1 cap BID 12/19/21 21:00 12/24/21 08:12 1 CAP Levetiracetam 100 ml @ 400 mls/hr 1X ONCE 12/18/21 15:00 12/18/21 15:14 DC 12/18/21 15:29 400 MLS/HR Lorazepam (Ativan Inj) 2 mg PRN Q4HRS PRN 12/18/21 17:30 Magnesium Hydroxide (Milk Of Magnesia) 2,400 mg PRN Q12HR PRN 12/18/21 17:30 Morphine Sulfate (Morphine Sulfate) 2 mg PRN Q1HR PRN 12/18/21 17:30 Ondansetron HCl (Zofran) 4 mg PRN Q6HRS PRN 12/18/21 17:30 Perflutren Protein Type A Microsphe (Optison) 0.66 mg 1X ONCE 12/22/21 07:00 12/22/21 07:01 DC Sodium Chloride 1,000 ml @ 100 mls/hr Q10H 12/18/21 17:30 12/19/21 14:54 DC 12/19/21 04:34 100 MLS/HR Lab Laboratory Tests Test 12/23/21 11:23 12/23/21 16:34 12/23/21 19:30 12/24/21 07:06 Glucose (Fingerstick) 218 mg/dL (70-99) 74 mg/dL (70-99) 196 mg/dL (70-99) 84 mg/dL (70-99) Results All relevant outside records, renal labs, imaging studies, telemetry/EKG's were reviewed. Justicifation of Admission Dx: Justifications for Admission: Justification of Admission Dx: N/A RENATA SANDERS MD Dec 24, 2021 11:05
[2021-12-24] MEDS ORDERED: DEXTROSE ORAL GEL 15 GM TUBE. ONE ×2 (11:35→11:40)
--- NOTE | 2021-12-24 13:05 | NUR ---
Patient escorted via wheelchair to [facility] by transportation. Family members informed by this RN. Belongings from security and all belongings from room with patient. NO IV or telemonitor on patient.
--- NOTE | 2022-01-06 17:31 | PDOC ---
Provider Note Date of Service: DATE: 01/06/22 TIME: 17:31 Provider Note Discharge summary dictated.#[id number]. Justifications for Admission Other Justification SHABBIR WEBSTER MD Jan 06, 2022 17:31
--- NOTE | 2022-01-07 00:03 | DS ---
DATE OF DISCHARGE: 12/24/2021 REASON FOR ADMISSION TO THE HOSPITAL: 1. Seizure. 2. Uncontrolled blood sugars more than 800. CONSULTATIONS: Kenneth Khoury MD; Jermaine Perez MD; Soni Barnard MD HOSPITAL COURSE: The patient is an 81-year-old male with history of diabetes, has not seen in the office on more than a year. He came in with a witnessed seizure, was brought to the hospital by ambulance. In the Emergency Room, he had one more seizure. The patient was admitted to the hospital, seen by Dr. Khoury, Neurology. 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 The patient when he came in, he had a high blood sugar 835, lactic acid 7.3, creatinine was 3.2 and the patient was put on insulin and sugars came down nicely after a couple of days and his blood sugars remained stable, less than 200. A1c 14. His kidney function improved with IV fluid hydration and creatinine was 1.5 at the time of discharge. The patient has slight elevation in troponin secondary to demand ischemia. antinuclear antibody pattern 1;80. COVID test negative. Blood cultures negative. CT head negative. MRI of the brain negative and there is a small patchy ground-glass opacity in the right upper lobe Subcutaneous fat lipoma, calcified coronary arteries. On the whole, the patient's condition improved and it was felt that seizures could be secondary to high blood sugars and kidney problems and did not recommend anti-seizure medication. The patient was recommended no driving or anything with high risk activities with climbing heights or swimming. The patient was discharged home on insulin. We will see him in the office. FINAL DIAGNOSES: 1. Seizure secondary to metabolic etiology. 2. Uncontrolled blood sugars more than 800. 3. Acute kidney insufficiency, improved with hydration. 4. Uncontrolled diabetes, A1c 14. 5. Demand ischemia secondary to troponin. 6. Hypertension. 7. Hyperlipidemia. 8. 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 DISPOSITION: Home. I will see him back for discharge medications. Strictly no driving. Follow with Neurology in 4 weeks, primary care in 2 weeks and the patient also was discharged with some antibiotics for possible aspiration pneumonia. Cefdinir 300 mg twice a day, Lantus 30 units at bedtime, NovoLog 15 units 3 times daily.Out pt cardiac work up. CONTINUED OTHER MEDICATIONS: Amlodipine, aspirin, atenolol and Tradjenta. JOSE/JONNIE/KRISTAN DR: JOSE/cb TID: [id number] MTDD
== END 2021-12-24 13:05 | DRG 871 ==
LOC: ER 12:32 → 5 NORTH 14:30
PROVIDERS: ADMIT Internal Medicine; ATTEND Internal Medicine
DX: A41.9 Sepsis, unspecified organism (principal); J69.0 Pneumonitis due to inhalation of food and vomit; N17.0 Acute kidney failure with tubular necrosis; E87.0 Hyperosmolality and hypernatremia; I16.0 Hypertensive urgency; E11.65 Type 2 diabetes mellitus with hyperglycemia; E11.22 Type 2 diabetes mellitus with diabetic chronic kidney disease; E78.00 Pure hypercholesterolemia, unspecified; E78.5 Hyperlipidemia, unspecified; I12.9 Hypertensive chronic kidney disease with stage 1 through stage 4 chronic kidney disease, or unspecified chronic kidney disease; I25.10 Atherosclerotic heart disease of native coronary artery without angina pectoris; I48.91 Unspecified atrial fibrillation; N18.9 Chronic kidney disease, unspecified; Z95.5 Presence of coronary angioplasty implant and graft; I25.2 Old myocardial infarction
CPT/HCPCS: 36415; 70450; 70551; 71045; 71046; 71250; 80048; 80053; 82140; 82550; 82607; 82962; 83036; 83605; 83735; 84100; 84165; 84443; 84484; 85025; 85610; 85651; 86038; 87040; 93005; 93306; 95816; 96361; 96365; 96375; G0480; J0360; J0692; J1644; J1815; J2060; J7030; U0003; 97110-GP; 97116-GP; 97530-GO; 97535-GO; 99285-25; C8929; G0378